=== PATIENT | female | born 1975 | race Caucasian/White ===

== ENCOUNTER 2020-03-13 10:54 | Outpatient (RCR) | payer OTHER, SELFPAY ==
[2020-03-13 11:01] VITALS: BMI 48.2
== END 2020-06-04 08:06 | disposition home or self-care (01) ==
LOC: ANHDMC 10:54
PROVIDERS: PCP Internal Medicine; Visit Provider Internal Medicine
DX: E11.9 Type 2 diabetes mellitus without complications (principal); R63.5 Abnormal weight gain; G47.33 Obstructive sleep apnea (adult) (pediatric); Z71.3 Dietary counseling and surveillance
CPT/HCPCS: 97802

== ENCOUNTER 2021-02-26 13:10 | Outpatient (CLI) | payer OTHER, SELFPAY ==
--- NOTE | ~2021-02-26 | XR_ITS ---
EXAMINATION: XR knee LT min 4V DATE: 02/26/2021 14:07 INDICATION: Left knee pain TECHNIQUE: Four views of the left knee were obtained. COMPARISON: None. FINDINGS: Alignment is normal. No fracture or osteochondral lesion. There is tricompartmental osteoar thritis, mild in the medial and lateral compartments and moderate in the patellofemoral compartment. No joint effusion/synovitis. Soft tissues are unremarkable. IMPRESSION: 1. Tricompartmental osteoarthritis without acute osseous abnormality. Reviewed, dictated and finalized at location A.
--- NOTE | ~2021-02-26 | CT_ITS ---
EXAMINATION: CTA chest PE protocol DATE: 02/26/2021 13:58 INDICATION: Dyspnea TECHNIQUE: Computed tomography (CT) pulmonary angiogram of the chest was performed with 100 mL Omnipa que-350 intravenous contrast. Additional 3D reconstructions utilizing coronal maximum intensity proje ction (MIP) were performed. Automated exposure control and iterative reconstruction technique were em ployed. The dose-length product was 1038.72 mGy-cm. COMPARISON: None FINDINGS: Adequate but suboptimal contrast opacification of the pulmonary arteries. There is mild streak artifa ct from dense contrast in the superior vena cava and right atrium. Minimal scattered respiratory nino on artifact which does not significantly limit evaluation. No pulmonary embolism. Calcified nodule in the perihilar right lower lobe consistent with old granulomatous disease. 3 mm triangular nodule wan ng the left and right major fissures most likely representing intrafissural lymph nodes. Indeterminat e 4 mm nodule superior segment of the left lower lobe. Lungs are otherwise clear with no pneumonia, p ulmonary edema or pleural effusion. Heart size is normal. No pericardial effusion. Thoracic aorta is normal in caliber with no dissection. No pathologically enlarged thoracic lymphadenopathy. Mild thora cic spondylosis. Incidentally noted are couple additional accessory right renal arteries. Visualized upper abdomen is otherwise unremarkable. IMPRESSION: 1. No pulmonary embolism or other acute cardiopulmonary disease. 2. Indeterminate 4 mm left lower lobe nodule most likely sequela of old granulomatous disease. If the patient is low risk for lung cancer, no follow-up is needed. If the patient is high risk (i.e., hist ory of smoking or asbestos or significant radiation exposure), optional follow-up chest CT could be c onsidered at 12 months. Reviewed, dictated and finalized at location A. IMPRESSION: 1. No pulmonary embolism or other acute cardiopulmonary disease. 2. Indeterminate 4 mm left lower lobe nodule most likely sequela of old granulo matous disease. If the patient is low risk for lung cancer, no follow-up is nee ded. If the patient is high risk (i.e., history of smoking or asbestos or signi ficant radiation exposure), optional follow-up chest CT could be considered at 12 months.
--- NOTE | ~2021-02-26 | XR_ITS ---
EXAMINATION: XR knee RT min 4V DATE: 02/26/2021 14:07 INDICATION: Right knee pain TECHNIQUE: Four views of the right knee were obtained. COMPARISON: None. FINDINGS: Alignment is normal. No fracture or osteochondral lesion. There is tricompartmental osteoar thritis, mild in the lateral compartment and moderate in the medial and patellofemoral compartments. No joint effusion/synovitis. Soft tissues are unremarkable. IMPRESSION: 1. Tricompartmental osteoarthritis without acute osseous abnormality. Reviewed, dictated and finalized at location A.
[2021-02-26 13:47] LABS: Estimated Glomerular Filt Rate > 60
== END 2021-02-26 13:11 | disposition home or self-care (01) ==
PROVIDERS: PCP Internal Medicine; Visit Provider Physician Assistant
DX: R06.00 Dyspnea, unspecified (principal); M17.0 Bilateral primary osteoarthritis of knee; R91.1 Solitary pulmonary nodule
CPT/HCPCS: 71275; 73564; Q9967

== ENCOUNTER 2022-05-05 14:00 | Outpatient (CLI) | payer OTHER, SELFPAY ==
[2022-05-05 15:05] LABS: Anion Gap 9 mmol/L (8-16); Blood Urea Nitrogen 15 mg/dL (7-17); Calcium 8.9 mg/dL (8.4-10.2); Carbon Dioxide 27 mmol/L (22-30); Chloride 105 mmol/L (98-107); Estimated Glomerular Filt Rate > 60; Glucose 108 mg/dL (65-110); Sodium 141 mmol/L (137-145)
== END 2022-05-05 14:01 | disposition home or self-care (01) ==
LOC: ANHSURGERY 14:04
PROVIDERS: Anesthesiology; PCP Physician Assistant; Visit Provider Urology
DX: N93.9 Abnormal uterine and vaginal bleeding, unspecified (principal); E11.9 Type 2 diabetes mellitus without complications
CPT/HCPCS: 36415; 80048; 87086

== ENCOUNTER 2022-05-09 00:35 | Day surgery (SDC) | payer OTHER, SELFPAY ==
[2022-05-02 09:16] VITALS: BMI 49.1
--- NOTE | 2022-05-02 09:32 | PC.NURSE ---
Report to the Outpatient Waiting Room, entrance under the green pavilion located off [facility], at time 6:00 on date 05/09/22. OR Time: 7:30. Time changes happen often and if your time is changed the preop area will call you the afternoon before. - You and your visitor will be asked to self-screen and do not enter if you have any COVID symptoms. - Only one visitor and NO children visitors are allowed at this time. - The patient visitor is requested to leave or wait in car when not with patient due to restrictions. - A mask is required within the hospital. Patients may have clear liquids (water, carbonated beverages, clear teas, apple juice) until 3 hours prior to surgery (4:30) with a maximum of 20 ounces. - No food from midnight until time of surgery Take the following medications with a SIP of water the morning of surgery: BUPROPION, DULOXETINE Medications to discontinue per physician: VITAMINS/SUPPLEMENTS Date to take last dose: 05/05/22 Please no make-up, nail portuguese, hairspray, perfume, deodorant, or body powder the day of surgery. No jewelry (including any body piercings) or valuables the day of surgery, leave them at home. Please take a shower or bath the night before, or the morning of, surgery with an antibacterial soap. Wear comfortable, loose fitting clothing. - Jewelry must be removed prior to entering the operating room. Rings and piercings that are not removed may be cut off. - The hospital will not accept responsibility for valuables. - Please leave all valuables, including medications, at home the day of surgery. If you are going home after surgery, a licensed bulk truck driver must drive you home. - NO public transportation without another adult. - We recommend that an adult stay with you for 24 hours following discharge. - We also recommend that you do not drive, make important decision, drink alcoholic beverages, or take any drugs that were not prescribed by your health care provider for at least 24 hours after your discharge time. Follow any additional instructions given to you from your surgeon. If you or anyone in your household have experienced Covid symptoms in the past week, please notify your surgeon or the nurse liaison at the phone number below for possible testing. Telephone instructions given to PT - MACARENA PAL and asked if any additional questions and then verbalized understanding. Patient advised to call surgeon office or pre surgery nurse liaison [phone] if any additional questions.
--- NOTE | 2022-05-04 08:47 | PM.IMHP ---
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 Lichen sclerosus (12/05/15) vulvar bx Right knee DJD Screening mammogram, encounter for Varicosities of leg (~1994) Surgical History Surgical History H/O LEEP (~1996) cervical dysplasia KELLI I/HPV History of cholecystectomy (09/12/11) History of colonoscopy with polypectomy (01/04/18) History of colposcopy with cervical biopsy (~1996) cervical dysplasia KELLI I History of dilation and curettage (01/18/09) dx lscope/hscope d&c--adhesiolysis, secretory pattern, mid to late phase endometrium History of endometrial ablation (12/20/09) Novasure ablation History of foot surgery 07/31/18 left foot fascia release 05/2016 plantar fasciitis release History of hemorrhoidectomy (03/12/11) History of laparoscopy (01/18/09) dx lscope/hscope d&c--adhesiolysis, secretory pattern, mid to late phase endometrium History of uvulopalatopharyngoplasty (03/06/15) Family History Family History Father Hypertension Diabetes mellitus Mother Asthma Family history of chronic obstructive pulmonary disease Family history of rheumatoid arthritis Hypertension Osteoporosis Sibling Family history of heart disease in male family member before age 55 Family history of chronic obstructive pulmonary disease Heart disease sister Hypertension sister Grandparent Cerebrovascular accident paternal grandmother Other Family history of cardiovascular disease History of arthritis Social History Social History Smoking packs per day: 0.5 Smoking cigarettes per day: 10.0 Years smoked: 10 Smoking pack-years: 5.00 Smoking status: Former smoker Tobacco type: cigarettes Second hand tobacco smoke exposure: No Smoking end date: 08/03/07 Alcohol intake: current Drinks per week: 2 Substance use: current Substance use type: marijuana Other substance usage details: every few weeks Additional living arrangements comments: Additional occupation/education comments: claims rep Gender identity (if verbalized by the patient): Female Sexual Orientation (if Verbalized by the Patient): Straight or Heterosexual Spiritual care concerns: No Meds Home Medications and Allergies Home Medications Medication Instructions Recorded Confirmed Type atorvastatin 20 mg tablet 20 mg PO DAILY 04/19/21 05/02/22 History azelastine 137 mcg (0.1 %) nasal 137 mcg intranasal Q12H 04/19/21 05/02/22 History spray aerosol bupropion HCl 300 mg 24 hr tablet, 300 mg PO QAM 04/19/21 05/02/22 History extended release (Wellbutrin XL) duloxetine 30 mg capsule,delayed 30 mg PO DAILY 04/19/21 05/02/22 History release (Cymbalta) fluticasone propionate 50 1 spray intranasal DAILY 04/19/21 05/02/22 History mcg/actuation nasal spray,suspension (Flonase Allergy Relief) ibuprofen 800 mg tablet 800 mg PO Q6H PRN Pain 04/19/21 05/02/22 History montelukast 10 mg tablet 10 mg PO DAILY 04/19/21 05/02/22 History (Singulair) omega-3 fatty acids-fish oil 360 1 cap PO DAILY 05/02/22 05/02/22 History mg-1,200 mg capsule (Fish Oil) tirzepatide 2.5 mg/0.5 mL 2.5 mg subcut WEEKLY 05/02/22 05/02/22 History subcutaneous pen injector (Mounjaro) Allergies Allergy/AdvReac
--- NOTE | 2022-05-08 16:55 | WPDANESEPPF ---
Anes - Initial Pre Proc Eval Procedure: Operation Date: 05/09/22 07:30 Proposed Procedures p Urethral Sling, - Robbie Cisneros MD s Cystoscopy, with Bulking Agent - Robbie Cisneros MD Date/Time: 05/08/22 16:55 Surgeon: Robbie Cisneros MD Pre Op Diagnosis: stress incontinence Patient Data Age: 46 Gender: F Height: 1.55 m Weight: 117.93 kg Allergies Allergy/AdvReac Type Severity Reaction Status Date / Time cefprozil Allergy Unknown Anaphylaxis Verified 05/02/22 09:13 cefuroxime Allergy Unknown Anaphylaxis Verified 05/02/22 09:13 cephalexin Allergy Unknown Anaphylaxis Verified 05/02/22 09:13 Cephalosporins Allergy Unknown Anaphylaxis Verified 05/02/22 09:13 erythromycin base Allergy Unknown Anaphylaxis Verified 05/02/22 09:13 Home Medications Medication Instructions Recorded Confirmed Type atorvastatin 20 mg tablet 20 mg PO DAILY 04/19/21 05/02/22 History azelastine 137 mcg (0.1 %) nasal 137 mcg intranasal Q12H 04/19/21 05/02/22 History spray aerosol bupropion HCl 300 mg 24 hr tablet, 300 mg PO QAM 04/19/21 05/02/22 History extended release (Wellbutrin XL) duloxetine 30 mg capsule,delayed 30 mg PO DAILY 04/19/21 05/02/22 History release (Cymbalta) fluticasone propionate 50 1 spray intranasal DAILY 04/19/21 05/02/22 History mcg/actuation nasal spray,suspension (Flonase Allergy Relief) ibuprofen 800 mg tablet 800 mg PO Q6H PRN Pain 04/19/21 05/02/22 History montelukast 10 mg tablet 10 mg PO DAILY 04/19/21 05/02/22 History (Singulair) omega-3 fatty acids-fish oil 360 1 cap PO DAILY 05/02/22 05/02/22 History mg-1,200 mg capsule (Fish Oil) tirzepatide 2.5 mg/0.5 mL 2.5 mg subcut WEEKLY 05/02/22 05/02/22 History subcutaneous pen injector (Mounjaro) Patient hx anesthesia problems: none Family hx anesthesia problems: none Results Review: All pre-operative results and documents have been reviewed as part of the pre-operative evaluation. 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 Lichen sclerosus (12/05/15) vulvar bx Right knee DJD Screening mammogram, encounter for Sleep apnea CPAP Varicosities of leg (~1994) Surgical History Surgical History H/O LEEP (~1996) cervical dysplasia KELLI I/HPV History of cholecystectomy (09/12/11) History of colonoscopy with polypectomy (01/04/18) History of colposcopy with cervical biopsy (~1996) cervical dysplasia KELLI I History of dilation and curettage (01/18/09) dx lscope/hscope d&c--adhesiolysis, secretory pattern, mid to late phase endometrium History of endometrial ablation (12/20/09) Novasure ablation History of foot surgery 07/31/18 left foot fascia release 05/2016 plantar fasciitis release History of hemorrhoidectomy (03/12/11) History of laparoscopy (01/18/09) dx lscope/hscope d&c--adhesiolysis, secretory pattern, mid to late phase endometrium History of uvulopalatopharyngoplasty (03/06/15) Family History Family History Father Hypertension Diabetes mellitus Mother Asthma Family history of chronic obstructive pulmonary disease Family history of rheumatoid arthritis Hypertension Osteoporosis Sibling Family history of heart disease in male family member before age 55 Family history of chronic obstructive pulmonary disease Heart disease sister Hypertension sister Grandparent Cerebrovascular accident paternal grandmother Other Family history of cardiovascular disease History of arthritis Social History Social History (Reviewed 05/04/22 @ 08:48 by Robbie Gamez
[2022-05-09] VITALS (7 sets, daily range): BP systolic 109–127; BP diastolic 49–69; PULSE 75–105; RESP 12–20; TEMP 36.1–36.3; O2SAT 98–100
[2022-05-09] MEDS: LACTATED RINGERS 1,000 ML 30 ML IV CONT (07:00)
[2022-05-09 07:02] LABS: Glucose Point of Care 102 mg/dl (65-105)
--- NOTE | 2022-05-09 07:10 | WPDHPUPDATE1 ---
History and Physical Update Update Date/Time: 05/09/22 07:10 History and Physical has been reviewed, including an updated exam of the patient. There are NO changes in the patient's condition. Risks, benefits, and alternatives have been discussed and questions answered. Patient agrees to proceed with procedure.
[2022-05-09] MEDS: levoFLOXacin 500 MG/D5W 100 ML 500 MG/100 ML BAG 100 MG IVPB (07:26)
[2022-05-09] MEDS: LIDOCAINE HCL 2% GEL UROJET 10 ML PKG MUCOUS MEM (07:50)
[2022-05-09] MEDS: BUPIVACAINE/EPINEPHRINE 0.25% 50 ML VIAL INFILTRATE (07:59)
--- NOTE | 2022-05-09 08:08 | P.OP_ITS ---
Procedure Note - Detailed Date of Procedure 05/09/22 Pre-op Diagnosis stress incontinence Post-op Diagnosis Same Procedure Performed mid urethral sling cystoscopy Surgeon Robbie Cisneros MD Anesthesia General Indications This is a female with confirm stress urinary incontinence. She desires surgical correction. She understands the risks of bleeding, infection, injury to the urinary tract, vaginal mesh extrusion, urinary tract mesh erosion, obstructive voiding requiring a secondary procedure, hip and leg pain, dyspareunia, inability to improve overactive bladder symptoms. Her BMI is over 50. We discussed a sling as well as a bulking agent. She understands the sling would be my preferred if it is able to be done with her body habitus. If unable to be done would have to revert to a bulking agent. She understands a bulking agent has a lower success rate than urethral sling. She agrees to proceed. Description of Procedure She was correctly identified. Informed consent obtained. She was brought the operating room. She was given appropriate anesthesia. She was given appropriate perioperative antibiotics. A time-out performed. I felt I would be able to do a urethral sling. This soon I preferred procedure due to its longer- term efficacy. I marked out the site of the inner thigh incisions. I anesthetized the skin and made those incisions. I anesthetized the anterior vaginal wall over the mid urethra. I made a 1 cm incision. I dissected out laterally taking great care not to injure the refilled vaginal wall. I passed the helical trocars. First on the left. Then on the right. I did this from the thigh incision towards the vaginal incision. The sling was connected to the trocars and brought out through the thigh incision. I tensioned the sling appropriately. I cut and the plastic sheaths. I then closed the incision with 2 0 Vicryl. On cystoscopy there is no tumors or surgical artifact. There was no surgical artifact in the urethra. I cut the excess sling material. Close incisions with glue. She was awakened and transferred to the PACU in stable condition. Implants Urethral sling Estimated Blood Loss 50 Drains No Packing No Pathology None sent Complications No immediate complications Condition Stable Disposition PACU
[2022-05-09 08:22] LABS: Glucose Point of Care 90 mg/dl (65-105)
[2022-05-09] MEDS: fentaNYL CITRATE INJ (*CRX) 100 MCG/2 ML VIAL 25 MCG IV PUSH ×2 (08:30→08:39)
[2022-05-09] MEDS: oxyCODONE HCL (*CRX) 5 MG TAB IR PO (09:06)
== END 2022-05-09 09:50 | disposition home or self-care (01) ==
PROVIDERS: PCP Physician Assistant; Visit Provider Urology
PROC: (CPT 51992; principal; 2022-05-09 07:30)
DX: N39.3 Stress incontinence (female) (male) (principal); N36.42 Intrinsic sphincter deficiency (ISD); E66.9 Obesity, unspecified; Z68.42 Body mass index [BMI] 45.0-49.9, adult; E11.9 Type 2 diabetes mellitus without complications; Z87.891 Personal history of nicotine dependence
CPT/HCPCS: 51992; 82948; A9270; C1771; J1100; J1885; J1956; J2250; J2405; J2704; J3010; J7030; J7120

== ENCOUNTER 2024-02-22 07:54 | Outpatient (CLI) | payer OTHER, SELFPAY ==
--- NOTE | ~2024-02-22 | MM_ITS ---
EXAMINATION: MM diagnostic tacos BI w forrest HISTORY: Follow-up left breast asymmetry TECHNIQUE: Additional 3-D tomosynthesis images of the breasts were performed and synthetic 2-D images were generated. CAD analysis was submitted and interpreted. COMPARISON: 10/05/2012 BREAST PARENCHYMAL COMPOSITION: Not dense: There are scattered areas of fibroglandular density. FINDINGS: The breasts are unremarkable without evidence for suspicious mass is, calcifications or arc hitectural distortion. IMPRESSION: 1. No mammographic evidence for malignancy in either breast. 2. Routine yearly screening mammogram and regular clinical breast examination are recommended. BI-RADS Category 1: Negative Reviewed, dictated and finalized at location B. IMPRESSION: 1. No mammographic evidence for malignancy in either breast. 2. Routine yearly screening mammogram and regular clinical breast examination a re recommended. BI-RADS Category 1: Negative
== END 2024-02-22 07:55 ==
PROVIDERS: PCP Physician Assistant; Visit Provider Obstetrics & Gynecology
DX: R92.8 Other abnormal and inconclusive findings on diagnostic imaging of breast (principal)
CPT/HCPCS: 77062; 77066; G0279

== ENCOUNTER 2024-07-26 00:14 | Day surgery (SDC) | payer OTHER, SELFPAY ==
[2024-07-14 13:45] VITALS: BMI 43.4
--- NOTE | 2024-07-26 08:26 | P.PNAN_ITS ---
Anes - Initial Pre Proc Eval Procedure: Operation Date: 07/26/24 13:30 Proposed Procedures p Esophagogastroduodenoscopy - Jonathan Toure MD Date/Time: 07/26/24 08:26 Surgeon: Jonathan Toure MD Pre Op Diagnosis: GERD Patient Data Age: 48 Gender: F Height: 1.55 m Weight: 104.4 kg Allergies Allergy/AdvReac Type Severity Reaction Status Date / Time cefprozil Allergy Unknown Anaphylaxis Verified 07/26/24 11:58 cefuroxime Allergy Unknown Anaphylaxis Verified 07/26/24 11:58 cephalexin Allergy Unknown Anaphylaxis Verified 07/26/24 11:58 Cephalosporins Allergy Unknown Anaphylaxis Verified 07/26/24 11:58 erythromycin base Allergy Unknown Anaphylaxis Verified 07/26/24 11:58 Home Medications ?Medication ?Instructions ?Recorded ?Confirmed ?Type atorvastatin 20 mg tablet 20 mg PO DAILY 04/19/21 07/14/24 History azelastine 137 mcg (0.1 %) nasal 137 mcg intranasal Q12H 04/19/21 07/14/24 History spray bupropion HCl 300 mg 24 hr tablet, 300 mg PO QAM 04/19/21 07/14/24 History extended release (Wellbutrin XL) duloxetine 30 mg capsule,delayed 30 mg PO DAILY 04/19/21 07/14/24 History release (Cymbalta) fluticasone propionate 50 1 spray intranasal DAILY 04/19/21 07/14/24 History mcg/actuation nasal spray,suspension (Flonase Allergy Relief) ibuprofen 800 mg tablet 800 mg PO Q6H PRN Pain 04/19/21 07/14/24 History montelukast 10 mg tablet 10 mg PO DAILY 04/19/21 07/14/24 History (Singulair) omega-3 fatty acids-fish oil 360 1 cap PO DAILY 05/02/22 07/14/24 History mg-1,200 mg capsule (Fish Oil) omeprazole 20 mg capsule,delayed 20 mg PO DAILY 12/26/22 07/14/24 History release cyanocobalamin (vitamin B-12) 1,000 mcg PO DAILY 12/29/23 07/14/24 History 1,000 mcg capsule estradiol 1 mg tablet 0.5 mg (1/2 x 1 mg) PO DAILY #90 12/29/23 07/14/24 Rx tabs progesterone micronized 200 mg 200 mg PO QHS 90 days #90 caps 12/29/23 07/14/24 Rx capsule (Prometrium) estradiol-norethindrone acet 1 1 tablet PO DAILY #84 tabs 03/30/24 07/14/24 Rx mg-0.5 mg tablet (Activella) duloxetine 60 mg capsule,delayed 60 mg PO DAILY 07/14/24 07/14/24 History release lamotrigine 25 mg tablet (Lamictal) 25 mg PO DAILY 07/14/24 07/14/24 History Patient hx anesthesia problems: none Family hx anesthesia problems: none Results Review: All pre-operative results and documents have been reviewed as part of the pre- operative evaluation. 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 Lichen sclerosus (12/05/15) vulvar bx Right knee DJD Screening mammogram, encounter for Sleep apnea CPAP Varicosities of leg (~1994) Surgical History Surgical History H/O LEEP (~1996) cervical dysplasia KELLI I/HPV History of cholecystectomy (09/12/11) History of colonoscopy with polypectomy (01/04/18) History of colposcopy with cervical biopsy (~1996) cervical dysplasia KELLI I History of dilation and curettage (01/18/09) dx lscope/hscope d&c--adhesiolysis, secretory pattern, mid to late phase endometrium History of endometrial ablation (12/20/09) Novasure ablation History of foot surgery 07/31/18 left foot fascia release 05/2016 plantar fasciitis release History of hemorrhoidectomy (03/12/11) History of laparoscopy (01/18/09) dx lscope/hscope d&c--adhesiolysis, secretory pattern, mid to late phase endometrium History of uvulopalatopharyngoplasty (03/06/15) Family History Family History Father Hypertension Diabetes mellitus Mother Asthma Family history of chronic obstructive pulmonary disease Family history of rheumatoid arthritis Hypertension Osteoporosis CHF (congestive heart failure) Sibling Family history of heart disease in male family member before age 55 Family history of chronic obstructive pulmonary disease Heart disease sister Hypertension sister Grandparent Cerebrovascular accident paternal grandmother Other Family history of cardiovascular disease History of arthritis Social History Social History (Updated 12/29/23 @ 17:08 by PRO Hernandez) Smoking packs per day: 0.5 Smoking cigarettes per day: 10.0 Years smoked: 10 Smoking pack-years: 5.00 Smoking status: Former smoker Tobacco type: cigarettes Second hand tobacco smoke exposure: No Smoking end date: 08/03/07 Alcohol intake: current Drinks per week: 2 Substance use: current Substance use type: marijuana Other substance usage details: MJ daily Do You Feel Safe in your Home?: Yes Lack of Transportation: No Lack of Food: Never True Current Housing: I Have Housing Concerned About Future Housing: No Difficulty Paying Gas/Electric Bills: No Difficulty Paying for Meds: No Currently Unemployed: No Education: High School Diploma/GED Difficulty w/ Childcare or Family Care: No Living arrangements: with family Additional living arrangements comments: Occupation/Education: occupation 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 Gender identity (if verbalized by the patient): Female Sexual Orientation (if Verbalized by the Patient): Straight or Heterosexual Spiritual care concerns: No Anes - Eval Final PreProcedure Day of Procedure 07/26/24 08:26 Patient weight: morbidly obese Heart: regular rate and rhythm Lungs: clear to auscultation Airway: Mallampati scale class II Neurological: alert and oriented Last oral intake: >/= 8 hours ASA classification: III Emergent: no Anesthetic plan: proceed Anesthesia type and monitoring: general GIVS and standard monitoring Results Review: All pre-operative results and documents have been reviewed as part of the pre-operative evaluation. Informed Consent: The patient's anesthetic plan and its attendant risks and benefits were discussed with the patient/family/POA. Questions were solicited and answers provided to the satisfaction of the patient/family/POA.
[2024-07-26 11:59] VITALS: BP 129/75; PULSE 73; RESP 18; TEMP 35.9; O2SAT 100; BMI 43.7
[2024-07-26] MEDS: LACTATED RINGERS 1,000 ML 150 ML IV CONT (12:17)
--- NOTE | 2024-07-26 12:17 | P.HP_ITS ---
History of Present Illness History of Present Illness Consent: Risks, benefits, and alternatives have been discussed and questions answered. Patient agrees to proceed with procedure. 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) Abnormal Pap smear of cervix (~1996) 1996 Lgsil + hpv Chondromalacia Left knee DJD Anxiety Depression Sleep apnea CPAP Right knee DJD Surgical History Surgical History H/O LEEP (~1996) cervical dysplasia KELLI I/HPV History of colposcopy with cervical biopsy (~1996) cervical dysplasia KELLI I History of endometrial ablation (12/20/09) Novasure ablation History of laparoscopy (01/18/09) dx lscope/hscope d&c--adhesiolysis, secretory pattern, mid to late phase endometrium History of dilation and curettage (01/18/09) dx lscope/hscope d&c--adhesiolysis, secretory pattern, mid to late phase endometrium History of foot surgery 07/31/18 left foot fascia release 05/2016 plantar fasciitis release History of uvulopalatopharyngoplasty (03/06/15) History of cholecystectomy (09/12/11) History of hemorrhoidectomy (03/12/11) History of colonoscopy with polypectomy (01/04/18) Family History Family History Father Hypertension Diabetes mellitus Mother Asthma Family history of chronic obstructive pulmonary disease Family history of rheumatoid arthritis Hypertension Osteoporosis CHF (congestive heart failure) Sibling Family history of heart disease in male family member before age 55 Family history of chronic obstructive pulmonary disease Heart disease sister Hypertension sister Grandparent Cerebrovascular accident paternal grandmother Other Family history of cardiovascular disease History of arthritis Social History Social History (Updated 12/29/23 @ 17:08 by Nataliya Thornton [facility]) Smoking packs per day: 0.5 Smoking cigarettes per day: 10.0 Years smoked: 10 Smoking pack-years: 5.00 Smoking status: Former smoker Tobacco type: cigarettes Second hand tobacco smoke exposure: No Smoking end date: 08/03/07 Alcohol intake: current Drinks per week: 2 Substance use: current Substance use type: marijuana Other substance usage details: MJ daily Do You Feel Safe in your Home?: Yes Lack of Transportation: No Lack of Food: Never True Current Housing: I Have Housing Concerned About Future Housing: No Difficulty Paying Gas/Electric Bills: No Difficulty Paying for Meds: No Currently Unemployed: No Education: High School Diploma/GED Difficulty w/ Childcare or Family Care: No Living arrangements: with family Additional living arrangements comments: Occupation/Education: 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 Gender identity (if verbalized by the patient): Female Sexual Orientation (if Verbalized by the Patient): Straight or Heterosexual Spiritual care concerns: No Meds Home Medications and Allergies Home Medications ?Medication ?Instructions ?Recorded ?Confirmed ?Type atorvastatin 20 mg tablet 20 mg PO DAILY 04/19/21 07/14/24 History azelastine 137 mcg (0.1 %) nasal 137 mcg intranasal Q12H 04/19/21 07/14/24 History spray bupropion HCl 300 mg 24 hr tablet, 300 mg PO QAM 04/19/21 07/14/24 History extended release (Wellbutrin XL) duloxetine 30 mg capsule,delayed 30 mg PO DAILY 04/19/21 07/14/24 History release (Cymbalta) fluticasone propionate 50 1 spray intranasal DAILY 04/19/21 07/14/24 History mcg/actuation nasal spray,suspension (Flonase Allergy Relief) ibuprofen 800 mg tablet 800 mg PO Q6H PRN Pain 04/19/21 07/14/24 History montelukast 10 mg tablet 10 mg PO DAILY 04/19/21 07/14/24 History (Singulair) omega-3 fatty acids-fish oil 360 1 cap PO DAILY 05/02/22 07/14/24 History mg-1,200 mg capsule (Fish Oil) omeprazole 20 mg capsule,delayed 20 mg PO DAILY 12/26/22 07/14/24 History release cyanocobalamin (vitamin B-12) 1,000 mcg PO DAILY 12/29/23 07/14/24 History 1,000 mcg capsule estradiol 1 mg tablet 0.5 mg (1/2 x 1 mg) PO DAILY #90 12/29/23 07/14/24 Rx tabs progesterone micronized 200 mg 200 mg PO QHS 90 days #90 caps 12/29/23 07/14/24 Rx capsule (Prometrium) estradiol-norethindrone acet 1 1 tablet PO DAILY #84 tabs 03/30/24 07/14/24 Rx mg-0.5 mg tablet (Activella) duloxetine 60 mg capsule,delayed 60 mg PO DAILY 07/14/24 07/14/24 History release lamotrigine 25 mg tablet (Lamictal) 25 mg PO DAILY 07/14/24 07/14/24 History Allergies Allergy/AdvReac Type Severity Reaction Status Date / Time cefprozil Allergy Unknown Anaphylaxis Verified 07/26/24 11:58 cefuroxime Allergy Unknown Anaphylaxis Verified 07/26/24 11:58 cephalexin Allergy Unknown Anaphylaxis Verified 07/26/24 11:58 Cephalosporins Allergy Unknown Anaphylaxis Verified 07/26/24 11:58 erythromycin base Allergy Unknown Anaphylaxis Verified 07/26/24 11:58 Vital Signs Vital Signs - 24 hr 07/26/24 11:59 Temperature 96.7 F L Pulse Rate 73 Respiratory Rate 18 Blood Pressure 129/75 Pulse Oximetry 100 Oxygen Delivery Room Air Exam Const: General: comfortable, no acute distress and obese HENMT: Face/Nose/Sinus: Normal nares present Eyes: General: appearance normal, both eyes and all related structures Neck: Neck: no JVD Resp: Auscultation: clear to auscultation bilaterally Cardio: Rate: regular rate Rhythm: regular rhythm GI: Inspection: non-distended GI Palp: Yes Soft to palpation Skin: General skin exam: normal color Neuro: General: gait normal Speech: normal speech Extrem: General: normal to inspection Psych: Mental Status: mental status grossly normal Assessment and Plan Assessment and plan (1) GERD (gastroesophageal reflux disease): Code(s): K21.9 - Gastro-esophageal reflux disease without esophagitis Status: Acute Assessment and Plan: egd with bx on ppi (2) Obese: Code(s): E66.9 - Obesity, unspecified Status: Acute
[2024-07-26 12:28] VITALS: BP 117/60; PULSE 71; RESP 22; O2SAT 95
[2024-07-26 12:38] VITALS: BP 119/97; PULSE 83; RESP 20; O2SAT 98
[2024-07-26 12:48] VITALS: BP 108/65; PULSE 87; RESP 22; O2SAT 99
--- OUTSIDE RECORDS SUMMARY | 2024-08-02 01:28 | XMS_ITS | Data Portability ---
Author Organization [facility] [employer], Main Office Address [address] [place] [address] Assessment No assessment recorded. Plan of Treatment Reminders Order Date Submit Date Provider Last Modified By Organization Details Last Modified Time Details Appointments None recorded. Lab HbA1c (hemoglobin A1c), blood 2022 023 [employer] [facility], [address], [place], [address], 3 16:13:51 microalbumi n/creatinin e, mass ratio, urine 2022 023 [employer] [facility], [address], [place], [address], 3 16:13:46 CMP, serum or plasma 2022 023 [employer] [facility], [address], [place], [address], 3 16:13:49 CBC w/ auto diff 2022 023 [employer] [facility], [address], [place], [address], 3 16:13:52 TSH + free T4, serum 2022 023 [employer] [facility], [address], [place], [address], 3 16:13:47 vitamin B12 + folate, serum or blood 2022 023 [place] [employer] [facility], [address], [place], [address], 3 16:13:53 lipid panel, serum 2022 023 [place] [employer] [facility], [address], [place], [address], 3 16:13:48 Referral None recorded. Procedures None recorded. Surgeries None recorded. Imaging None recorded. Medication Orders Colace 100 mg capsule 2022 023 [facility][id number], [address] [place], [address], 3 17:09:08 Mounjaro 7.5 mg/0.5 mL subcutaneou s pen injector 2022 023 [facility] #3259, [address] [place], [address], 3 17:12:40 mupirocin 2 % topical [facility]ment 2022 023 [email or web address] [address] [place], [address], 3 16:56:26 Vyvanse 30 mg capsule 2022 023 [email or web address] #3259, [address] [place], [address], 3 16:26:59 Mounjaro 7.5 mg/0.5 mL subcutaneou s pen injector 2022 023 [facility], [address], [place], [id number], 3 16:59:19 triamcinolo ne acetonide 0.1 % topical ointment 2022 023 [facility], [address], [place], [id number], 3 16:59:19 bupropion HCl XL 300 mg 24 hr tablet, extended release 2022 023 [facility], [address] [place] [address], [address], [id number], 3 16:59:14 Focalin XR 15 mg capsule,ext ended release 2022 023 [email or web address]82843, [address], [place], [id number], 4 10:50:39 Patient TargetsNo targets recorded. Patient InstructionsNo instructions recorded. Reason for Referral None Reported. Results Created Date Observation Date Name Description Value Unit Range Abnormal Flag Note LastModifiedBy Organization Detail LastModifiedTime 04/03/2004/04/2022 REFLE XIVE URINE CULTU RE reflexive urine culture NO CULTU RE INDIC ATED Not Available [address] [address] [place], [address], 04/04/2022 14:28:25 04/03/2004/04/2022 URINA LYSIS , COMPL ETE W/REF EVE TO CULTU RE color yellow yellow normal Not Available [facility] [address] [address] [place], [address], 04/04/2022 14:28:24 04/03/20 22 04/04/2022 URINA LYSIS , COMPL ETE W/REF EVE TO CULTU RE appearance clear clear normal Not Available [address] [address] [place], [address], 04/04/2022 14:28:24 04/03/20 22 04/04/2022 URINA LYSIS , COMPL ETE W/REF EVE TO CULTU RE specific gravity 1.016 1.001- 1.035 normal Not Available [address], [address], 04/04/2022 14:28:24 04/03/20 22 04/04/2022 URINA LYSIS , COMPL ETE W/REF EVE TO CULTU RE pH 6.0 5.0-8. 0 normal Not Available [address], [address], 04/04/2022 14:28:24 04/03/20 22 04/04/2022 URINA LYSIS , COMPL ETE W/REF EVE TO CULTU RE glucose negati ve negati ve normal Not Available [address], [address], 04/04/2022 14:28:24 04/03/20 22 04/04/2022 URINA LYSIS , COMPL ETE W/REF EVE TO CULTU RE bilirubin negati ve negati ve normal Not Available [address], [address], 04/04/2022 14:28:24 04/03/20 22 04/04/2022 URINA LYSIS , COMPL ETE W/REF EVE TO CULTU RE ketones negati ve negati ve normal Not Available [address], [address], 04/04/2022 14:28:24 04/03/20 22 04/04/2022 URINA LYSIS , COMPL ETE W/REF EVE TO CULTU RE occult blood negati ve negati ve normal Not Available [address], [address], 04/04/2022 14:28:24 04/03/20 22 04/04/2022 URINA LYSIS , COMPL ETE W/REF EVE TO CULTU RE protein negati ve negati ve normal Not Available [address] [address] [place], [address], 04/04/2022 14:28:24 04/03/20 22 04/04/2022 URINA LYSIS , COMPL ETE W/REF EVE TO CULTU RE nitrite negati ve negati ve normal Not Available [address], [address], 04/04/2022 14:28:24 04/03/20 22 04/04/2022 URINA LYSIS , COMPL ETE W/REF EVE TO CULTU RE leukocyte esterase negati ve negati ve normal Not Available [address], [address], 04/04/2022 14:28:24 04/03/20 22 04/04/2022 URINA LYSIS , COMPL ETE W/REF EVE TO CULTU RE WBC none seen /hpf < or = 5 normal Not Available [address], [address], 04/04/2022 14:28:24 04/03/20 22 04/04/2022 URINA LYSIS , COMPL ETE W/REF EVE TO CULTU RE RBC none seen /hpf < or = 2 normal Not Available [address], [address], 04/04/2022 14:28:24 04/03/20 22 04/04/2022 URINA LYSIS , COMPL ETE W/REF EVE TO CULTU RE squamous epithelial cells 0-5 /hpf < or = 5 Not Available [address], [address], 04/04/2022 14:28:24 04/03/20 22 04/04/2022 URINA LYSIS , COMPL ETE W/REF EVE TO CULTU RE bacteria none seen /hpf none seen normal Not Available [address], [address], 04/04/2022 14:28:24 04/03/20 22 04/04/2022 URINA LYSIS , COMPL ETE W/REF EVE TO CULTU RE hyaline cast none seen /lpf none seen normal Not Available [facility] [address] [address] [place], [address], 04/04/2022 14:28:24 04/03/20 22 04/04/2022 HEMOG LOBIN A1C hemoglobin A1C 5.9 %_of_ total _HGB <5.7 high For someo ne witho ut known diabe jessica, a hemog lobin A1c value betwe en 5.7% and 6.4% is consi stent with predi abete s and shoul d be confi rmed with a follo w-up test. For someo ne with known diabe jessica, a value <7% indic ates that their diabe jessica is well contr olled . A1c targe ts shoul d be indiv idual ized based on durat ion of diabe jessica, age, comor bid condi tions , and other consi derat ions. This assay resul t is consi stent with an incre ased risk of diabe jessica. Curre ntly, no conse nsus exist s devyn wharton use of hemog lobin A1c for diagn osis of diabe jessica for child shaan. Not Available [facility] [address] [address] [place], [address], 04/04/2022 14:28:23 04/03/20 22 04/04/2022 COMPR EHENS LUI METAB OLIC PANEL eGFR 74 mL/mi n/1.7 3m2 > or = 60 normal The eGFR is based on the CKD-E PI 2020 equat ion. To calcu late the new eGFR from a previ ous Creat inine or Cysta tin C resul t, go to https :[email or web address] /[email or web address] 5Fcal culat or Not Available [facility] [address] [address] [place], [address], 04/04/2022 14:28:23 04/03/20 22 04/04/2022 COMPR EHENS LUI METAB OLIC PANEL glucose 107 mg/dL 65-99 high Fasti ng refer ence inter kiran For someo ne witho ut known diabe jessica, a gluco se value betwe en 100 and 125 mg/dL is consi stent with predi abete s and shoul d be confi rmed with a follo w-up test. Not Available [address], [address], 04/04/2022 14:28:23 04/03/20 22 04/04/2022 COMPR EHENS LUI METAB OLIC PANEL urea nitrogen (BUN) 13 mg/dL 7-25 normal Not Available [address], [address], 04/04/2022 14:28:23 04/03/20 22 04/04/2022 COMPR EHENS LUI METAB OLIC PANEL creatinine 0.96 mg/dL 0.50-0 .99 normal Not Available [address], [address], 04/04/2022 14:28:23 04/03/20 22 04/04/2022 COMPR EHENS LUI METAB OLIC PANEL BUN/creatini ne ratio not applic able (calc ) 6-22 Not Available [address], [address], 04/04/2022 14:28:23 04/03/20 22 04/04/2022 COMPR EHENS LUI METAB OLIC PANEL sodium 139 mmol/ L 135-14 6 normal Not Available [address], [address], 04/04/2022 14:28:23 04/03/20 22 04/04/2022 COMPR EHENS LUI METAB OLIC PANEL potassium 4.3 mmol/ L 3.5-5. 3 normal Not Available [address], [address], 04/04/2022 14:28:23 04/03/20 22 04/04/2022 COMPR EHENS LUI METAB OLIC PANEL chloride 104 mmol/ L 98-110 normal Not Available [address], [address], 04/04/2022 14:28:23 04/03/20 22 04/04/2022 COMPR EHENS LUI METAB OLIC PANEL carbon dioxide 26 mmol/ L 20-32 normal Not Available [address], [address], 04/04/2022 14:28:04/03/20 22 04/04/2022 COMPR EHENS LUI METAB OLIC PANEL calcium 8.9 mg/dL 8.6-10 .2 normal Not Available [address], [address], 04/04/2022 14:28:04/03/20 22 04/04/2022 COMPR EHENS LUI METAB OLIC PANEL protein, total 6.7 g/dL 6.1-8. 1 normal Not Available [address], [address], 04/04/2022 14:28:23 04/03/20 22 04/04/2022 COMPR EHENS LUI METAB OLIC PANEL albumin 4.1 g/dL 3.6-5. 1 normal Not Available [address], [address], 04/04/2022 14:28:23 04/03/20 22 04/04/2022 COMPR EHENS LUI METAB OLIC PANEL globulin 2.6 g/dL_ (calc ) 1.9-3. 7 normal Not Available [address], [address], 04/04/2022 14:28:23 04/03/20 22 04/04/2022 COMPR EHENS LUI METAB OLIC PANEL albumin/glob ulin ratio 1.6 (calc ) 1.0-2. 5 normal Not Available [address], [address], 04/04/2022 14:28:23 04/03/20 22 04/04/2022 COMPR EHENS LUI METAB OLIC PANEL bilirubin, total 0.3 mg/dL 0.2-1. 2 normal Not Available [address], [address], 04/04/2022 14:28:23 04/03/20 22 04/04/2022 COMPR EHENS LUI METAB OLIC PANEL alkaline phosphatase 97 U/L 31-125 normal Not Available [address], [address], 04/04/2022 14:28:23 04/03/20 22 04/04/2022 COMPR EHENS LUI METAB OLIC PANEL AST 16 U/L 10-35 normal Not Available [address], [address], 04/04/2022 14:28:23 04/03/20 22 04/04/2022 COMPR EHENS LUI METAB OLIC PANEL ALT 20 U/L 6-29 normal Not Available [address], [address], 04/04/2022 14:28:23 04/03/20 22 04/04/2022 LIPID PANEL WITH RATIO S HDL cholesterol 47 mg/dL > or = 50 low Not Available [address], [address], 04/04/2022 14:28:22 04/03/20 22 04/04/2022 LIPID PANEL WITH RATIO S cholesterol, total 166 mg/dL <200 normal Not Available [address], [address], 04/04/2022 14:28:22 04/03/2004/04/2022 LIPID PANEL WITH RATIO S triglyceride s 128 mg/dL <150 normal Not Available [address], [address], 04/04/2022 14:28:22 04/03/20 22 04/04/2022 LIPID PANEL WITH RATIO S LDL-choleste rol 97 mg/dL _(rey c) normal Refer ence range : <100 Joaquim able range <100 mg/dL for prima ry preve ntion ; <70 mg/dL for patie nts with CHD or diabe tic patie nts with > or = 2 CHD risk facto rs. LDL-C is now calcu lated using the Patti n-Hop kins calcu latdulce maria n, which is a valid ated novel metho d provi ding saúl r accur acy than the Fried ignacio equat ion in the estim ation of LDL-C . Patti aguillon SS et al. NATHALIE. 2013; 310(1 9): 2061- 2068 (http ://ed ucati on.Qu estDi Offerama. com/f aq/FA Q164) Not Available [address], [address], 04/04/2022 14:28:22 04/03/2004/04/2022 LIPID PANEL WITH RATIO S chol/HDLC ratio 3.5 (calc ) <5.0 normal Not Available [address], [address], 04/04/2022 14:28:22 04/03/2004/04/2022 LIPID PANEL WITH RATIO S LDL/HDL ratio 2.1 (calc ) Below avera ge Risk: <2.34 [place] ge Risk: 2.35- 4.12 Moder ate Risk: 4.13- 5.56 High Risk: >5.57 Not Available [address], [address], 04/04/2022 14:28:22 04/03/2024 0404/04/2022 LIPID PANEL WITH RATIO S non HDL cholesterol 119 mg/dL _(rey c) <130 normal For patie nts with diabe jessica plus 1 major ASCVD risk facto r, treat ing to a non-H DL-C goal of <100 mg/dL (LDL- C of <70 mg/dL ) is collin elias optio n. Not Available [address], [address], 04/04/2022 14:28:04/03/20 22 04/04/2022 TSH+F REE T4 TSH 1.27 mIU/L normal Refer ence Range > or = 20 Years 0.40- 4.50 Pregn libra Range s First trime ster 0.26- 2.66 Secon d trime ster 0.55- 2.73 Third trime ster 0.43- 2.91 Not Available [address], [address], 04/04/2022 14:28:21 04/03/20 22 04/04/2022 TSH+F REE T4 T4, free 1.0 NG/dL 0.8-1. 8 normal Not Available [address], [address], 04/04/2022 14:28:21 04/03/20 22 04/04/2022 ALBUM IN, RANDO M URINE W/CRE ATINI NE creatinine, random urine 101 mg/dL 20-275 normal Not Available [address], [address], 04/04/2022 14:28:20 04/03/20 22 04/04/2022 ALBUM IN, RANDO M URINE W/CRE ATINI NE albumin, urine <0.2 mg/dL see note: normal Refer ence Range : Refer ence Range Not estab lishe d Not Available [address], [address], 04/04/2022 14:28:20 04/03/20 22 04/04/2022 ALBUM IN, RANDO M URINE W/CRE ATINI NE albumin/crea tinine ratio, random urine note mcg/m g_cre at <30 normal NOTE: The urine album in value is less than 0.2 mg/dL there fore we are unabl e to calcu late excre tion and/o r creat inine ratio . The ADA defin es abnor malit ies in album in excre tion as follo ws: Album inuri a Categ ory Resul t (mcg/ mg creat inine ) Pat l to Mildl y incre ased <30 Moder ately incre ased 30-29 9 Sever gerson incre ased > OR = 300 The ADA recom mends that at least two of three speci mens colle cted withi n a 3-6 month perio d be abnor mal befor e consi wesley g a patie nt to be withi n a diagn ostic categ ory. Not Available [address] [place], [address], 04/04/2022 14:28:20 04/03/20 22 04/04/2022 CBC (INCL UDES DIFF/ PLT) white blood cell count 8.7 thous and/u L 3.8-10 .8 normal Not Available [address] [place], [address], 04/04/2022 14:28:24 04/03/20 22 04/04/2022 CBC (INCL UDES DIFF/ PLT) red blood cell count 4.81 génesis on/uL 3.80-5 .10 normal Not Available [facility] [address], [address], 04/04/2022 14:28:24 04/03/20 22 04/04/2022 CBC (INCL UDES DIFF/ PLT) hemoglobin 13.1 g/dL 11.7-1 5.5 normal Not Available [facility] [address] [place], [address], 04/04/2022 14:28:24 04/03/20 22 04/04/2022 CBC (INCL UDES DIFF/ PLT) hematocrit 40.6 % 35.0-4 5.0 normal Not Available [address], [address], 04/04/2022 14:28:04/03/20 22 04/04/2022 CBC (INCL UDES DIFF/ PLT) MCV 84.4 fL 80.0-1 00.0 normal Not Available [address], [address], 04/04/2022 14:28:04/03/20 22 04/04/2022 CBC (INCL UDES DIFF/ PLT) MCH 27.2 pg 27.0-3 3.0 normal Not Available [address], [address], 04/04/2022 14:28:04/03/20 22 04/04/2022 CBC (INCL UDES DIFF/ PLT) MCHC 32.3 g/dL 32.0-3 6.0 normal Not Available [address], [address], 04/04/2022 14:28:04/03/20 22 04/04/2022 CBC (INCL UDES DIFF/ PLT) RDW 13.5 % 11.0-1 5.0 normal Not Available [address], [address], 04/04/2022 14:28:04/03/20 22 04/04/2022 CBC (INCL UDES DIFF/ PLT) platelet count 324 thous and/u L 140-40 0 normal Not Available [address], [address], 04/04/2022 14:28:24 04/03/20 22 04/04/2022 CBC (INCL UDES DIFF/ PLT) MPV 9.8 fL 7.5-12 .5 normal Not Available [address], [address], 04/04/2022 14:28:24 04/03/20 22 04/04/2022 CBC (INCL UDES DIFF/ PLT) absolute neutrophils 6081 cells /uL 1500-7 800 normal Not Available [address], [address], 04/04/2022 14:28:24 04/03/20 22 04/04/2022 CBC (INCL UDES DIFF/ PLT) absolute lymphocytes 1740 cells /uL 850-39 00 normal Not Available [address], [address], 04/04/2022 14:28:24 04/03/20 22 04/04/2022 CBC (INCL UDES DIFF/ PLT) absolute monocytes 618 cells /uL 200-95 0 normal Not Available [address], [address], 04/04/2022 14:28:24 04/03/20 22 04/04/2022 CBC (INCL UDES DIFF/ PLT) absolute eosinophils 209 cells /uL 15-500 normal Not Available [address], [address], 04/04/2022 14:28:24 04/03/20 22 04/04/2022 CBC (INCL UDES DIFF/ PLT) absolute basophils 52 cells /uL 0-200 normal Not Available [facility] [address], [address], 04/04/2022 14:28:24 04/03/20 22 04/04/2022 CBC (INCL UDES DIFF/ PLT) neutrophils 69.9 % normal Not Available [address], [address], 04/04/2022 14:28:24 04/03/20 22 04/04/2022 CBC (INCL UDES DIFF/ PLT) lymphocytes 20.0 % normal Not Available [address], [address], 04/04/2022 14:28:24 04/03/20 22 04/04/2022 CBC (INCL UDES DIFF/ PLT) monocytes 7.1 % normal Not Available [address], [address], 04/04/2022 14:28:24 04/03/20 22 04/04/2022 CBC (INCL UDES DIFF/ PLT) eosinophils 2.4 % normal Not Available [address], [address], 04/04/2022 14:28:24 04/03/20 22 04/04/2022 CBC (INCL UDES DIFF/ PLT) basophils 0.6 % normal Not Available [address], [address], 04/04/2022 14:28:24 07/01/20 23 07/02/2023 ALBUM IN, RANDO M URINE W/CRE ATINI NE creatinine, random urine 188 mg/dL 20-275 normal Not Available [address], [address], 07/02/2023 16:13:46 07/01/20 23 07/02/2023 ALBUM IN, RANDO M URINE W/CRE ATINI NE albumin, urine 0.3 mg/dL see note: normal Refer ence Range : Refer ence Range Not estab lishe d Not Available [address], [address], 07/02/2023 16:13:46 07/01/20 23 07/02/2023 ALBUM IN, RANDO M URINE W/CRE ATINI NE albumin/crea tinine ratio, random urine 2 mcg/m g_cre at <30 normal The ADA defin es abnor malit ies in album in excre tion as follo ws: Album inuri a Categ ory Resul t (mcg/ mg creat inine ) Pat l to Mildl y incre ased <30 Moder ately incre ased 30-29 9 Sever gerson incre ased > OR = 300 The ADA recom mends that at least two of three speci mens colle cted withi n a 3-6 month perio d be abnor mal befor e consi wesley g a patie nt to be withi n a diagn ostic categ ory. Not Available [facility] [address] [place], [address], 07/02/2023 16:13:46 07/01/20 23 07/02/2023 TSH+F REE T4 TSH 1.58 mIU/L normal Refer ence Range > or = 20 Years 0.40- 4.50 Pregn libra Range s First trime ster 0.26- 2.66 Secon d trime ster 0.55- 2.73 Third trime ster 0.43- 2.91 Not Available [facility] [address] [place], [address], 07/02/2023 16:13:47 07/01/20 23 07/02/2023 TSH+F REE T4 T4, free 1.0 NG/dL 0.8-1. 8 normal Not Available [facility] [address] [place], [address], 07/02/2023 16:13:47 07/01/20 23 07/02/2023 LIPID PANEL WITH RATIO S cholesterol, total 144 mg/dL <200 normal Not Available [facility] [address] [place], [address], 07/02/2023 16:13:48 07/01/20 23 07/02/2023 LIPID PANEL WITH RATIO S HDL cholesterol 39 mg/dL > or = 50 low Not Available [facility] [address] [place], [address], 07/02/2023 16:13:48 07/01/20 23 07/02/2023 LIPID PANEL WITH RATIO S triglyceride s 134 mg/dL <150 normal Not Available [address], [address], 07/02/2023 16:13:48 07/01/20 23 07/02/2023 LIPID PANEL WITH RATIO S LDL-choleste rol 82 mg/dL _(rey c) normal Refer ence range : <100 Joaquim able range <100 mg/dL for prima ry preve ntion ; <70 mg/dL for patie nts with CHD or diabe tic patie nts with > or = 2 CHD risk facto rs. LDL-C is now calcu lated using the Patti n-Hop kins calcu latdulce maria n, which is a valid ated novel metho d provi ding saúl r accur acy than the Fried ignacio equat ion in the estim ation of LDL-C . Patti aguillon SS et al. NATHALIE. 2013; 310(1 9): 2061- 2068 (http ://ed ucati on.Qu estDi Offerama. com/f aq/FA Q164) Not Available [address], [address], 07/02/2023 16:13:48 07/01/20 23 07/02/2023 LIPID PANEL WITH RATIO S chol/HDLC ratio 3.7 (calc ) <5.0 normal Not Available [address], [address], 07/02/2023 16:13:48 07/01/20 23 07/02/2023 LIPID PANEL WITH RATIO S LDL/HDL ratio 2.1 (calc ) Below avera ge Risk: <2.34 [place] ge Risk: 2.35- 4.12 Moder ate Risk: 4.13- 5.56 High Risk: >5.57 Not Available [address], [address], 07/02/2023 16:13:48 07/01/20 23 07/02/2023 LIPID PANEL WITH RATIO S non HDL cholesterol 105 mg/dL _(rey c) <130 normal For patie nts with diabe jessica plus 1 major ASCVD risk facto r, treat ing to a non-H DL-C goal of <100 mg/dL (LDL- C of <70 mg/dL ) is consi dered a thera peuti c optio n. Not Available [address] [address] [place], [address], 07/02/2023 16:13:48 07/01/20 23 07/02/2023 COMPR EHENS LUI METAB OLIC PANEL glucose 104 mg/dL 65-99 high Fasti ng refer ence inter kiran For someo ne witho ut known diabe jessica, a gluco se value betwe en 100 and 125 mg/dL is consi stent with predi abete s and shoul d be confi rmed with a follo w-up test. Not Available [address] [address] [place], [address], 07/02/2023 16:13:49 07/01/20 23 07/02/2023 COMPR EHENS LUI METAB OLIC PANEL urea nitrogen (BUN) 15 mg/dL 7-25 normal Not Available [address] [address] [place], [address], 07/02/2023 16:13:49 07/01/20 23 07/02/2023 COMPR EHENS LUI METAB OLIC PANEL creatinine 1.06 mg/dL 0.50-0 .99 high Not Available [facility] [address] [address] [place], [address], 07/02/2023 16:13:49 07/01/20 23 07/02/2023 COMPR EHENS LUI METAB OLIC PANEL eGFR 66 mL/mi n/1.7 3m2 > or = 60 normal Not Available [facility] [address] [address] [place], [address], 07/02/2023 16:13:49 07/01/20 23 07/02/2023 COMPR EHENS LUI METAB OLIC PANEL BUN/creatini ne ratio 14 (calc ) 6-22 normal Not Available [address], [address], 07/02/2023 16:13:49 07/01/20 23 07/02/2023 COMPR EHENS LUI METAB OLIC PANEL sodium 140 mmol/ L 135-14 6 normal Not Available [address], [address], 07/02/2023 16:13:49 07/01/20 23 07/02/2023 COMPR EHENS LUI METAB OLIC PANEL potassium 3.8 mmol/ L 3.5-5. 3 normal Not Available [address], [address], 07/02/2023 16:13:49 07/01/20 23 07/02/2023 COMPR EHENS LUI METAB OLIC PANEL chloride 105 mmol/ L 98-110 normal Not Available [address], [address], 07/02/2023 16:13:49 07/01/20 23 07/02/2023 COMPR EHENS LUI METAB OLIC PANEL carbon dioxide 28 mmol/ L 20-32 normal Not Available [address], [address], 07/02/2023 16:13:49 07/01/20 23 07/02/2023 COMPR EHENS LUI METAB OLIC PANEL calcium 8.3 mg/dL 8.6-10 .2 low Not Available [address], [address], 07/02/2023 16:13:49 07/01/20 23 07/02/2023 COMPR EHENS LUI METAB OLIC PANEL protein, total 6.2 g/dL 6.1-8. 1 normal Not Available [address] [place], [address], 07/02/2023 16:13:49 07/01/20 23 07/02/2023 COMPR EHENS LUI METAB OLIC PANEL albumin 4.0 g/dL 3.6-5. 1 normal Not Available [address], [address], 07/02/2023 16:13:49 07/01/20 23 07/02/2023 COMPR EHENS LUI METAB OLIC PANEL globulin 2.2 g/dL_ (calc ) 1.9-3. 7 normal Not Available [address], [address], 07/02/2023 16:13:49 07/01/20 23 07/02/2023 COMPR EHENS LUI METAB OLIC PANEL albumin/glob ulin ratio 1.8 (calc ) 1.0-2. 5 normal Not Available [address] [address] [place], [address], 07/02/2023 16:13:49 07/01/20 23 07/02/2023 COMPR EHENS LUI METAB OLIC PANEL bilirubin, total 0.3 mg/dL 0.2-1. 2 normal Not Available [address], [address], 07/02/2023 16:13:49 07/01/20 23 07/02/2023 COMPR EHENS LUI METAB OLIC PANEL alkaline phosphatase 76 U/L 31-125 normal Not Available [facility] [address] [address] [place], [address], 07/02/2023 16:13:49 07/01/20 23 07/02/2023 COMPR EHENS LUI METAB OLIC PANEL AST 14 U/L 10-35 normal Not Available [address], [address], 07/02/2023 16:13:49 07/01/20 23 07/02/2023 COMPR EHENS LUI METAB OLIC PANEL ALT 14 U/L 6-29 normal Not Available [address] [address] [place], [address], 07/02/2023 16:13:49 07/01/20 23 07/02/2023 HEMOG LOBIN A1C hemoglobin A1C 5.3 %_of_ total _HGB <5.7 normal For the purpo se of screluzma kong for the prese nce of diabe jessica: <5.7% Consi stent with the absen ce of diabe jessica 5.7-6 .4% Consi stent with incre ased risk for diabe jessica (pred iabet es) > or =6.5% Consi stent with diabe jessica This assay resul t is consi stent with a decre ased risk of diabe jessica. Curre ntly, no conse nsus exist s devyn wharton use of hemog lobin A1c for diagn osis of diabe jessica in child shaan. Accor ding to [employer] can Diabe jessica [employer] n (ADA) guide lines , hemog lobin A1c <7.0% repre sents optim al contr ol in non-p regna nt diabe tic patie nts. Diffe rent metri cs may apply to speci fic patie nt popul ation s. Stand ards of Medic al Care in Diabe jessica(A DA). Not Available [facility] [address] [address] [address], [place], [address], 07/02/2023 16:13:51 07/01/20 23 07/02/2023 CBC (INCL UDES DIFF/ PLT) white blood cell count 9.2 thous and/u L 3.8-10 .8 normal Not Available [facility] [address] [address] [place], [address], 07/02/2023 16:13:52 07/01/20 23 07/02/2023 CBC (INCL UDES DIFF/ PLT) red blood cell count 4.43 génesis on/uL 3.80-5 .10 normal Not Available [address], [address], 07/02/2023 16:13:52 07/01/20 23 07/02/2023 CBC (INCL UDES DIFF/ PLT) hemoglobin 12.2 g/dL 11.7-1 5.5 normal Not Available [address], [address], 07/02/2023 16:13:52 07/01/20 23 07/02/2023 CBC (INCL UDES DIFF/ PLT) hematocrit 37.2 % 35.0-4 5.0 normal Not Available [address], [address], 07/02/2023 16:13:52 07/01/20 23 07/02/2023 CBC (INCL UDES DIFF/ PLT) MCV 84.0 fL 80.0-1 00.0 normal Not Available [address], [address], 07/02/2023 16:13:52 07/01/20 23 07/02/2023 CBC (INCL UDES DIFF/ PLT) MCH 27.5 pg 27.0-3 3.0 normal Not Available [address], [address], 07/02/2023 16:13:52 07/01/20 23 07/02/2023 CBC (INCL UDES DIFF/ PLT) MCHC 32.8 g/dL 32.0-3 6.0 normal Not Available [address], [address], 07/02/2023 16:13:52 07/01/20 23 07/02/2023 CBC (INCL UDES DIFF/ PLT) RDW 12.9 % 11.0-1 5.0 normal Not Available [address], [address], 07/02/2023 16:13:52 07/01/20 23 07/02/2023 CBC (INCL UDES DIFF/ PLT) platelet count 317 thous and/u L 140-40 0 normal Not Available [address], [address], 07/02/2023 16:13:52 07/01/20 23 07/02/2023 CBC (INCL UDES DIFF/ PLT) MPV 10.6 fL 7.5-12 .5 normal Not Available [address], [address], 07/02/2023 16:13:52 07/01/20 23 07/02/2023 CBC (INCL UDES DIFF/ PLT) absolute neutrophils 6955 cells /uL 1500-7 800 normal Not Available [address], [address], 07/02/2023 16:13:52 07/01/20 23 07/02/2023 CBC (INCL UDES DIFF/ PLT) absolute lymphocytes 1398 cells /uL 850-39 00 normal Not Available [address], [address], 07/02/2023 16:13:52 07/01/20 23 07/02/2023 CBC (INCL UDES DIFF/ PLT) absolute monocytes 727 cells /uL 200-95 0 normal Not Available [address], [address], 07/02/2023 16:13:52 07/01/20 23 07/02/2023 CBC (INCL UDES DIFF/ PLT) absolute eosinophils 83 cells /uL 15-500 normal Not Available [address], [address], 07/02/2023 16:13:52 07/01/20 23 07/02/2023 CBC (INCL UDES DIFF/ PLT) absolute basophils 37 cells /uL 0-200 normal Not Available [address] [place], [address], 07/02/2023 16:13:52 07/01/20 23 07/02/2023 CBC (INCL UDES DIFF/ PLT) neutrophils 75.6 % normal Not Available [facility] [address], [address], 07/02/2023 16:13:52 07/01/20 23 07/02/2023 CBC (INCL UDES DIFF/ PLT) lymphocytes 15.2 % normal Not Available [facility] [address], [address], 07/02/2023 16:13:52 07/01/2007/02/2023 CBC (INCL UDES DIFF/ PLT) monocytes 7.9 % normal Not Available [address], [address], 07/02/2023 16:13:52 07/01/20 23 07/02/2023 CBC (INCL UDES DIFF/ PLT) eosinophils 0.9 % normal Not Available [facility] [address], [address], 07/02/2023 16:13:52 07/01/20 23 07/02/2023 CBC (INCL UDES DIFF/ PLT) basophils 0.4 % normal Not Available [address], [address], 07/02/2023 16:13:52 07/01/20 23 07/02/2023 VITAM IN B12/F OLATE , SERUM PANEL vitamin B12 286 pg/mL 200-11 00 normal Pleas e Note: Altho ugh the refer ence range for vitam in B12 is 200-1 100 pg/mL , it has been repor guevara that betwe en 5 and 10% of patie nts with value s betwe en 200 and 400 pg/mL may exper ience neuro psych iatri c and hemat ologi c abnor malit ies due to occul t B12 defic iency ; less than 1% of patie nts with value s above 400 pg/mL will have sympt oms. Not Available [facility] [address] [place], [address], 07/02/2023 16:13:53 07/01/20 23 07/02/2023 VITAM IN B12/F OLATE , SERUM PANEL folate, serum 7.7 NG/mL normal Refer ence Range Low: <3.4 Borde rline : 3.4-5 .4 Pat l: >5.4 Not Available [facility] [address] [address], [place], [address], 07/02/2023 16:13:53 03/20/20 22 02/27/2022 MAMMO , erin kong, digit al, bilat eral No observ ation record ed. [id number] Not Available 10/01/2022 02:55:12 Result Notes None recorded. Problems Name Problem SNOMED Code Status Onset Date Resolution Date Notes Provider Name and Address Organization Details Recorded Time Bilateral knee pain Active 2021 Not Available [facility] 4 14:23:43 Pain of left temporoman dibular joint 0204587775019 9107 Active 2021 Not Available [facility] 4 14:23:43 Acute sinusitis 51018245 Active 2022 Not Available [facility] 4 14:23:43 Body mass index 30+ - obesity 995124022 Active Not Available [facility] 4 14:23:43 Urinary incontinen ce 646890108 Active Not Available [facility] 4 14:23:43 Plantar fasciitis 068640702 Active Not Available [facility] 4 14:23:43 Lichen sclerosus et atrophicus Active Not Available [facility] 4 14:23:43 Dyspnea 747327059 Active 2021 Not Available [facility] 4 14:23:43 Recurrent major depressive episodes 824453071 Active Not Available [facility] 4 14:23:43 Vaginal discharge 437145182 Active Not Available [facility] 4 14:23:43 Lesion of vulva 278600357 Active Not Available [facility] 4 14:23:43 Adnexal tenderness 401944640 Active Not Available [facility] 4 14:23:43 Chronic sciatica 423939811 Active Not Available [facility] 4 14:23:43 Temporoman dibular joint disorder 75870523 Active Not Available [facility] 4 14:23:43 Emotional stress 013562557 Active Not Available [facility] 4 14:23:44 Well controlled type 2 diabetes mellitus 792256618 Active 2021 Not Available [facility] 4 14:23:44 Sinus headache 0018662 Active Not Available [facility] 4 14:23:44 Hyperlipid emia 06597720 Active Not Available [facility] 4 14:23:44 Allergic rhinitis 94318997 Active Not Available [facility] 4 14:23:44 Recurrent major depression 50705668 Active 2021 Not Available [facility] 4 14:23:44 Acute maxillary sinusitis 87269629 Active Not Available [facility] 4 14:23:44 Obstructiv e sleep apnea syndrome 97024382 Active Not Available [facility] 4 14:23:44 Fatigue 22541801 Active Not Available [facility] 4 14:23:44 Weight gain 6981525 Active Not Available [facility] 4 14:23:44 Acute frontal sinusitis 32366445 Active 2022 Not Available [facility] 4 14:23:44 Impaired glucose tolerance 8647702 Active 2021 Not Available [facility] 4 14:23:44 Anxiety 02442337 Active 2022 Not Available [facility] 4 14:23:44 Depressive disorder 39839105 Active 2022 Not Available [facility] 4 14:23:43 Ulcer of nose 87211240 Active 2022 Not Available [facility] 4 14:23:44 Constipati on 00396700 Active 2022 Not Available [facility] 4 14:23:43 Attention deficit hyperactiv ity disorder 130809735 Active 2022 Not Available [facility] 4 14:23:43 Acid reflux 893016677 Active 2023 CARTER Gilbert [address] [place] [address], [facility] [address], [place], [address] , [facility] [employer] [facility] 4 10:50:55 Notes:Some problems listed i n Documents: #[id number], #[id number] could not be added to this patient's chart. Please review these documents and add these problems to the patient's chart manually as needed. Problem Notes None recorded. Procedures Surgical History Date Name Laterality Status Provider Name and Address Organization Details Recorded Time 022 Cystourethroscopy completed Not Available [facility] 10/01/2022 02:37:39 021 Most Recent Mammogram completed Not Available [facility] 10/01/2022 02:37:33 021 Date of Last Pap Smear completed Not Available [facility] 10/01/2022 02:37:33 018 Date of Last Colonoscopy completed Not Available [facility] 10/01/2022 02:37:33 015 other completed Not Available [facility] 10/01/2022 02:37:39 012 Cholecystectomy completed Not Available [facility] 10/01/2022 02:37:39 011 Hemorrhoidectomy completed Not Available [facility] 10/01/2022 02:37:39 Orthopedic Surgery completed Not Available [facility] 10/01/2022 02:37:39 SPEECH LANG PATH THERAPIST Procedure completed Not Available [facility] 10/01/2022 02:37:39 insertion of single incision mid-urethral mini-sling completed Not Available [facility] 10/01/2022 02:37:39 Imaging Results Imaging Date Name Status LastModified by Organ [facility] Details LastModified Time 02/27/2022 MAMMO, screening, digital, bilateral completed [id number] Information not available 10/01/2022 02:55:12 Procedure Notes None recorded. Medical Equipment None Reported. Allergies Allergen ID Allergen Name Allergen Category Reaction Reaction Severity Criticality Documentation Date Start Date Code Code System Note Provider Name and Address Organization Details Recorded Time 4192 Keflex medicatio n rash severe Not available 10/01/2022 12179 7 RxNorm Not Available [facility] 3 02:54:27 4193 Medicinal product containin g cephalosp omer and acting as antibacte rial agent (product) medicatio n itching Not available Not available 10/01/2022 79146 9009 SNOMED and closi ng of throa t Not Available [facility] 3 02:54:27 4194 cephalexi n medicatio n rash severe Not available 10/01/2022 2231 RxNorm Not Available [facility] 3 02:54:27 4195 Cefzil medicatio n rash severe Not available 10/01/2022 92979 1 RxNorm Not Available [facility] 3 02:54:27 4196 Ceftin medicatio n rash severe Not available 10/01/2022 23319 6 RxNorm Not Available [facility] 3 02:54:27 4197 amoxicill in medicatio n Not available Not available Not available 10/01/2022 723 RxNorm Not Available [facility] 3 02:54:27 Medications Name Sig Start Date Stop Date Status Note LastModified by Organization Details LastModified Time celecoxib 200 mg capsule 03/25 completed Not Available Not Available Not Available cyclobenz aprine 10 mg tablet TAKE 1 TABLET 3 TIMES A DAY BY ORAL ROUTE NEEDED. active Not Available Not Available No t Available amoxicill in 500 mg capsule active Not Available Not Available Not Available clotrimaz ole 10 mg nathen Take 1 tablet 5 times a day by oral route for 5 days. active Not Available Not Available No t Available doxycycli ne hyclate 100 mg capsule Take 1 capsule twice a day w/meal 06/09 completed Not Available Not Available Not Available atorvasta tin 20 mg tablet TAKE 1 TABLET BY MOUTH DAILY active Not Available Not Available No t Available ropinirol e 1 mg tablet TAKE 1 TABLET BY MOUTH AT BEDTIME 07/27 /2021 completed Not Available Not Available Not Available ketoconaz ole 2 % shampoo APPLY SHAMPOO TO SCALP TWICE WEEKLY 05/24 completed Not Available Not Available Not Available clindamyc in HCl 300 mg capsule TAKE 1 CAPSULE BY MOUTH TWICE A DAY 06/15 completed Not Available Not Available Not Available citalopra m 40 mg tablet Take 1 tablet every day by oral route. active Not Available Not Available No t Available oxybutyni n chloride ER 10 mg tablet,ex tended release 24 hr Take 1 tablet every day by oral route for 90 days. active Not Available Not Available No t Available ibuprofen 800 mg tablet TAKE 1 TABLET BY MOUTH 3 TIMES DAILY NEEDED 2022 active Not Available Not Available Not Avai lable tizanidin e 4 mg tablet TAKE 1 AND 1/2 TABLETS (6 MG) BY MOUTH AT BEDTIME 03/25 completed Not Available Not Available Not Available fluconazo le 150 mg tablet TAKE 1 TAB BY MOUTH ONCE DAILY ON DAYS 1, 3 AND 6 OF ANTIBIOT IC. 06/09 completed Not Available Not Available Not Available citalopra m 10 mg tablet active Not Available Not Available Not Available clarithro mycin 500 mg tablet active Not Available Not Available No t Available tolterodi ne ER 4 mg capsule,e xtended release 24 hr TAKE 1 CAPSULE( S) EVERY DAY BY ORAL ROUTE FOR 90 DAYS. 05/24 completed Not Available Not Available Not Available hydrocodo ne 5 mg-acetam inophen 325 mg tablet TAKE 1 TABLET BY MOUTH EVERY 6 TO 8 HOURS NEEDED FOR PAIN 09/30 completed Not Available Not Available Not Available meloxicam 15 mg tablet TAKE 1 TABLET BY MOUTH EVERY DAY FOR 2 WEEKS 06/15 completed Not Available Not Available Not Available metronida zole 0.75 % (37.5 mg/5 gram) vaginal gel Insert 1 applicat orful by vaginal route at bedtime for 5 days. 06/15 completed Not Available Not Available Not Available prednison e 20 mg tablet Take 2 tablets every day by oral route for 5 days. 06/09 completed Not Available Not Available Not Available clonazepa m 1 mg tablet active Not Available Not Available Not Available clobetaso l 0.05 % topical cream Apply 1 g twice a day by topical route for 30 days. active Not Available Not Available No t Available Zithromax Z-Yash 250 mg tablet TAKE 2 TABLETS (500 MG) BY ORAL ROUTE ONCE DAILY FOR 1 DAY THEN 1 TABLET (250 MG) BY ORAL ROUTE ONCE DAILY FOR 4 DAYS 09/30 completed Not Available Not Available Not Available phentermi ne 15 mg capsule TAKE 1 CAPSULE BY MOUTH DAILY BEFORE BREAKFAS T 10/30 completed Not Available Not Available Not Available oxycodone 5 mg/5 mL oral solution active Not Available Not Available Not Available topiramat e 25 mg tablet TAKE 1 TABLET BY MOUTH TWICE A DAY 10/30 completed Not Available Not Available Not Available phentermi ne 37.5 mg tablet TAKE 1 TABLET BY MOUTH EVERY DAY active Not Available Not Available No t Available acetamino phen 300 mg-codein e 30 mg tablet active Not Available Not Available Not Available tramadol 50 mg tablet 03/25 completed Not Available Not Available Not Available triamcino lone acetonide 0.1 % topical cream 03/25 completed Not Available Not Available Not Available pantopraz ole 20 mg tablet,de layed release Take 1 tablet every day by oral route before meal(s). active Not Available Not Available No t Available pramipexo le 0.5 mg tablet active Not Available Not Available Not Available meloxicam 7.5 mg tablet Take 1 tablet twice a day by oral route as needed. active Per Adriana ervin to do 15mg once a day. Not Available Not Available Not Available alprazola m 0.5 mg tablet TAKE HALF A TAB TO ONE TAB TWICE A DAY NEEDED active Not Available Not Available No t Available amoxicill in 875 mg tablet Take 1 tablet every 12 hours by oral route. active Not Available Not Available No t Available alprazola m 0.25 mg tablet Take 1 tablet 3 times a day by oral route as needed. active manually fax. Not Available Not Available Not Available citalopra m 20 mg tablet active Not Available Not Available Not Available methocarb alvino 750 mg tablet Take 1 tablet every day by oral route at bedtime. active Not Available Not Available No t Available ropinirol e 0.25 mg tablet TAKE 1 TAB BY MOUTH ONCE AT BEDTIME. INCREASE TO 2 TABS IF NOT EFFECTIV E. 02/26 completed Not Available Not Available Not Available imiquimod 5 % topical cream packet APPLY TO WARTS EVERY NIGHT AT BEDTIME 03/25 completed Not Available Not Available Not Available benzonata te 100 mg capsule active Not Available Not Available Not Available doxycycli ne monohydra te 100 mg capsule TAKE 1 CAPSULE BY MOUTH TWICE A DAY FOR 7 DAYS 04/11 completed Not Available Not Available Not Available triamcino lone acetonide 40 mg/mL suspensio n for injection Take 2 mL by injectio n route. 06/09 completed Not Available Not Available Not Available hydrocodo ne 7.5 mg-acetam inophen 325 mg tablet 06/15 completed Not Available Not Available Not Available oseltamiv ir 75 mg capsule Take 1 capsule twice a day by oral route. 06/15 completed Not Available Not Available Not Available triamcino lone acetonide 0.1 % topical ointment APPLY A THIN LAYER TO THE AFFECTED AREA(S) of nose BY TOPICAL ROUTE 2 TIMES PER DAY x 7-10 days active Not Available Not Available No t Available docusate sodium 100 mg capsule TAKE 1 CAPSULE BY MOUTH EVERY DAY active Not Available Not Available No t Available gabapenti n 300 mg capsule TAKE 1 CAPSULE BY MOUTH EVERYDAY AT BEDTIME 04/11 completed Not Available Not Available Not Available diclofena c sodium 75 mg tablet,de layed release active Not Available Not Available Not Available monteluka st 10 mg tablet TAKE 1 TABLET BY MOUTH IN THE MORNING active Not Available Not Available No t Available mupirocin 2 % topical ointment USE DIRECTED 3 TIMES A DAY IN NASAL REGION 06/09 completed Not Available Not Available Not Available gabapenti n 100 mg capsule active Not Available Not Available Not Available clobetaso l 0.05 % topical ointment APPLY TOPICALL Y TWICE A DAY active Not Available Not Available No t Available azelastin e 137 mcg (0.1 %) nasal spray SPRAY 2 SPRAY(S) 2 TIMES A DAY IN EACH NOSTRIL active Not Available Not Available No t Available Cheratuss in AC 10 mg-100 mg/5 mL oral liquid active Not Available Not Available Not Available polyethyl anita glycol 3350 17 gram/dose oral powder MIX ENTIRE BOTTLE W/ 64-OZ OF A CLEAR LIQUID. TAKE DIRECTED BY FOR COLONOSC OPY PREP. 05/24 completed Not Available Not Available Not Available levofloxa melani 500 mg tablet Take 1 tablet every 24 hours by oral route. active Not Available Not Available No t Available estradiol 0.01% (0.1 mg/gram) vaginal cream INSERT 1 GRAM VAGINALL Y 2 X DAILY FOR 4 WEEKS active Not Available Not Available No t Available methylpre dnisolone 4 mg tablets in a dose pack TAKE 6 TABLETS ON DAY 1 DIRECTED ON PACKAGE AND DECREASE BY 1 TAB EACH DAY FOR A TOTAL OF 6 DAYS 02/26 completed Not Available Not Available Not Available clobetaso l 0.05 % scalp solution APPLY TO THE AFFECTED SCALP AREA BY TOPICAL ROUTE 2 TIMES PER DAY IN THE MORNING AND EVENING pRN active Not Available Not Available No t Available fluticaso ne propionat e 50 mcg/actua tion nasal spray,farida pension INSTIL 1 SPRAY INTO EACH NOSTRIL EVERY DAY active Not Available Not Available No t Available metformin ER 500 mg tablet,ex tended release 24 hr TAKE 2 TABLET(S ) EVERY DAY BY ORAL ROUTE AT DINNER. 06/15 completed Not Available Not Available Not Available doxycycli ne hyclate 100 mg tablet TAKE 1 TABLET BY MOUTH TWICE A DAY 05/24 completed Not Available Not Available Not Available Lotemax 0.5 % eye drops,farida pension 10/30 completed Not Available Not Available Not Available tobramyci n 0.3 %-dexamet hasone 0.1 % eye drops,farida pension active Not Available Not Available Not Available esomepraz ole magnesium 20 mg capsule,d elayed release TAKE 1 CAPSULE BY MOUTH DAILY 08/28 completed Not Available Not Available Not Available atomoxeti ne 40 mg capsule TAKE 1 CAPSULE BY MOUTH EVERY DAY IN THE MORNING 06/09 completed Not Available Not Available Not Available Restasis 0.05 % eye drops in a dropperet te Instill by ophthalm ic route as needed for 30 days. 11/18 completed Not Available Not Available Not Available cholestyr amine (with sugar) 4 gram powder for susp in a packet active Not Available Not Available Not Available bupropion HCl XL 300 mg 24 hr tablet, extended release TAKE 1 TABLET BY MOUTH EVERY DAY active Not Available Not Available No t Available Wellbutri n XL 150 mg 24 hr tablet, extended release Take 1 tablet every day by oral route. active Not Available Not Available No t Available hydrocodo ne 7.5 mg-acetam inophen 325 mg/15 mL oral solution active Not Available Not Available Not Available topiramat e 50 mg tablet TAKE 1 TABLET BY MOUTH TWICE A DAY 10/30 completed Not Available Not Available Not Available duloxetin e 30 mg capsule,d elayed release Take 1 capsule every day by oral route. active Not Available Not Available No t Available duloxetin e 60 mg capsule,d elayed release Take 1 capsule every day by oral route. active Not Available Not Available No t Available Mucinex DM 30 mg-600 mg tablet,ex tended release 12 hr TAKE 1 TABLET(S ) EVERY 12 HOURS BY ORAL ROUTE FOR 10 DAYS. active Not Available Not Available No t Available tizanidin e 6 mg capsule Take 1 capsule every day by oral route at bedtime. 09/25 completed Not Available Not Available Not Available One-A-Day Womens Formula one daily 2021 active Not Available Not Available Not Avai lable Sudafed 2012 active Not Available Not Available Not Avai lable Astelin one spray in each nostril daily 2021 active Not Available Not Available Not Avai lable hydrocodo ne 5 mg-acetam inophen 300 mg tablet active Not Available Not Available Not Available dexmethyl phenidate ER 15 mg capsule,e xtended release biphasic5 0-50 Take 1 capsule every day by oral route in the morning. 08/28 completed Not Available Not Available Not Available Vyvanse 30 mg capsule TAKE 1 CAPSULE BY MOUTH EVERY DAY IN THE MORNING 04/30 completed Not Available Not Available Not Available NovoTwist 32 gauge x 1/5 needle 04/11 completed Not Available Not Available Not Available Victoza 2-Yash 0.6 mg/0.1 mL (18 mg/3 mL) subcutane ous pen injector inject 0.6mg SQ daily x 7days, then increase to 1.2mg SQ daily after 10/30 completed Not Available Not Available Not Available Lotemax 0.5 % eye gel drops 03/25 completed Not Available Not Available Not Available Xigduo XR 5 mg-1,000 mg tablet,ex tended release Take 1 tablet every day by oral route. 03/24 completed Not Available Not Available Not Available Rexulti 1 mg tablet TAKE 1 TABLET BY MOUTH DAILY FOR 1 WEEK 04/11 completed Not Available Not Available Not Available Rexulti 2 mg tablet TAKE 1 TABLET BY MOUTH EVERY DAY 04/11 completed Not Available Not Available Not Available Xiidra 5 % eye drops in a dropperet te APPLY 1 DROP INTO BOTH EYES TWICE A DAY 10/30 completed Not Available Not Available Not Available Bydureon BCise 2 mg/0.85 mL subcutane ous auto-inje ctor INJECT 2MG SUB-Q ONCE WEEKLY NEEDED 06/15 completed Not Available Not Available Not Available Ozempic 0.25 mg or 0.5 mg (2 mg/1.5 mL) subcutane ous pen injector INJECT 0.25MG BY SUB Q FOR 4 WEEKS, THEN INCREASE TO 0.5MG ONCE WEEKLY FOR 4 WEEKS 04/11 completed Not Available Not Available Not Available MegaRed Advanced 4-in-1 339 mg-314 mg-500 mg capsule Take 1 capsule every day by oral route. 2021 active Not Available Not Available Not Avai lable Eysuvis 0.25 % eye drops,farida pension APPLY 1 DROP INTO AFFECTED EYE FOUR TIMES A DAY SHAKE BEFORE USE 04/11 completed Not Available Not Available Not Available Wegovy 0.25 mg/0.5 mL subcutane ous pen injector Inject by subcutan eous route. 06/09 completed Not Available Not Available Not Available Mounjaro 7.5 mg/0.5 mL subcutane ous pen injector Inject 7.5 mg every week by subcutan eous route. 2022 active Not Available Not Available Not Avai lable Mounjaro 5 mg/0.5 mL subcutane ous pen injector INJECT 5 MG EVERY WEEK BY SUBCUTAN EOUS ROUTE DIRECTED . 06/09 completed Not Available Not Available Not Available Vitals Date Recorded Body mass index (BMI) Body height Oxygen saturation Oxygen saturation in Arterial blood by Pulse oximetry Heart rate Body temperature Body weight Systolic blood pressure Diastolic blood pressure Provider Name and Address Organization Details Last Updated DateTime 2 49.9 kg/m2 154.94 cm 97 % 97 % 85 /min 97.3 [degF] 042893. 39 g 128 mm[Hg] 84 mm[Hg] Not Available [facility] 3 02:41:04 Date Recorded Body mass index (BMI) Body height Oxygen saturation Oxygen saturation in Arterial blood by Pulse oximetry Heart rate Body temperature Body weight Systolic blood pressure Diastolic blood pressure Provider Name and Address Organization Details Last Updated DateTime 3 45.3 kg/m2 154.94 cm 98 % 98 % 86 /min 97.4 [degF] 522380. 17 g 126 mm[Hg] 82 mm[Hg] Not Available [facility] 3 02:41:04 Date Recorded Body height Oxygen saturation Oxygen saturation in Arterial blood by Pulse oximetry Heart rate Respiratory rate Body temperature Systolic blood pressure Diastolic blood pressure Provider Name and Address Organization Details Last Updated DateTime 2 154.94 cm 98 % 98 % 88 /min 16 /min 97.2 [degF] 120 mm[Hg] 80 mm[Hg] Not Available [facility] 02:41:04 Date Recorded Body height Body weight Body temperature Heart rate Oxygen saturation Oxygen saturation in Arterial blood by Pulse oximetry Systolic blood pressure Diastolic blood pressure Provider Name and Address Organization Details Last Updated DateTime 3 154.94 cm 808432. 65 g 98.4 [degF] 86 /min 98 % 98 % 136 mm[Hg] 82 mm[Hg] [facility] 16:36:55 Date Recorded Body mass index (BMI) Provider Name and Address Organization Details Last Updated DateTime 03/25/2023 43.3 kg/m2 CARTER Gilbert [address] [place] [address], [address], Entrec 03/25/2023 16:39:28 Date Recorded Body height Body mass index (BMI) Body weight Body temperature Heart rate Oxygen saturation Oxygen saturation in Arterial blood by Pulse oximetry Systolic blood pressure Diastolic blood pressure Provider Name and Address Organization Details Last Updated DateTime 3 154.94 cm 41.6 kg/m2 22866.3 2 g 98 [degF] 83 /min 96 % 96 % 124 mm[Hg] 80 mm[Hg] Kimberly Andujar RN [facility] [employer] 16:36:38 Date Recorded Systolic blood pressure Diastolic blood pressure Provider Name and Address Organization Details Last Updated DateTime 06/09/2023 120 mm[Hg] 80 mm[Hg] CARTER Gilbert [address], [facility] [address], [place], [address], [place] [employer] [facility] [employer] 06/09/2023 16:59:21 Social History Question Answer Notes LastModified by Organizat ion Details LastModified Time Tobacco Smoking Status Former Smoker Kimbrely Andujar RN null, [place] [employer] [facility] [employer] 03/25/2023 16:30:53 What Is Your Level Of Alcohol Consumption? Occasional [id number] Information not available 10/01/2022 What Is Your Level Of Caffeine Consumption? Moderate [id number] Information not available 10/01/2022 In The 14 Days Before Symptom Onset, Have You Had Close Contact With A Laboratory-confi rmed COVID-19 While That Case Was Ill? No [email or web address] Information not available 03/25/2023 In The 14 Days Before Symptom Onset, Have You Had Close Contact With A Person Who Is Under Investigation For COVID-19 While That Person Was Ill? No [email or web address] Information not available 03/25/2023 Are You Currently Employed? Yes [email or web address] Information not available 03/25/2023 What Type Of Diet Are You Following? REGULAR [email or web address] Information not available 03/24/2023 Which Illicit Or Recreational Drugs Have You Used? Marijuana Occasional [email or web address] Information not available 03/25/2023 Do You Or Have You Ever Used E-cigarettes Or Vape? 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 No [email or web address] Information not available 03/25/2023 Do You Use Insect Repellent Routinely? No [email or web address] Information not available 03/25/2023 What Is Your Current Pack Years? 10-19packyear s [email or web address] Information not available 03/25/2023 Have You Ever Been Counseled For Unhealthy Alcohol Use? No [email or web address] Information not available 03/25/2023 Do You Use Your Seat Belt Or Car Seat Routinely? Yes Information not available 03/25/2023 Do You Have Smoke And Carbon Monoxide Detectors In Your Home? Yes [email or web address] Information not available 03/25/2023 At What Age Did You Start Smoking Tobacco? 17 [email or web address] Information not available 03/25/2023 Do You Use Any Illicit Or Recreational Drugs? No [email or web address] Information not available 03/25/2023 Do You Use Sunscreen Routinely? Yes [email or web address] Information not available 03/25/2023 Has Tobacco Cessation Counseling Been Provided? No [email or web address] Information not available 03/25/2023 How Many Years Have You Smoked Tobacco? 15 [email or web address] Information not available 03/25/2023 Have You Recently Traveled Abroad? No [email or web address] Information not available 03/25/2023 Do You Have Any Dietary Restrictions? No Information not available 03/25/2023 Do You Or Have You Ever Used Any Other Forms Of Tobacco Or Nicotine? No [email or web address] Information not available 03/25/2023 Sex: Unknown Functional Status Question Answer Note LastModified by Caringo ion Details LastModified Time What is your exercise level? None [id number] Information not available 10/01/2022 Mental Status None recorded. Family History Relationship Description Onset Age of this Age Resolved Age Notes LastModified by Organization Details LastModified Time Paternal Grandmother Cerebrovascu lar accident [email or web address] Not available 03/25/2023 16:30:50 Father Hypertensive disorder [id number] Not available 10/01/2022 02:37:44 Father Diabetes mellitus [id number] Not available 10/01/2022 02:37:45 Sister Hypertensive disorder [id number] Not available 10/01/2022 02:37:45 Notes:maternal cousin - christoph khan cancer Medical History Condition Response ARTHRITIS Y HEADACHES/MIGRAINES Y VARICOSITIES Y ANXIETY DISORDER Y SKIN PROBLEMS Y DIABETES, TYPE Y FEMALE PROBLEMS / INFECTIONS DEPRESSION (INCLUDING POST ) Y Gynecological History Statement/Question Response Abnormal Pap Y Date of Last Colonoscopy 01/04/2018 Date of LMP 07/13/2020 Menses Monthly N Date of Last Pap Smear 10/30/2020 Current Control Method None Age at Menarche 12 Most Recent Mammogram 12/04/2020 Obstetrics History GPAL:G 0 P 0 0 0 0 Immunizations Vaccine Type Date Status Note Provider Nam e and Address Organization Details Recorded Time influenza, unspecified formulation 6 completed Not Available [facility] 08/24/2023 14:23:44 Tdap 8 completed Not Available [facility] 08/24/2023 14:23:44 Influenza, split virus, quadrivalent, preservative 5 completed Not Available [facility] 08/24/2023 14:23:44 Influenza, split virus, quadrivalent, PF 8 completed Not Available [facility] 08/24/2023 14:23:44 Past Encounters Encounter ID Performer Location Encounter Start Date Encounter Closed Date Diagnosis/Indication Diagnosis SNOMED-CT Code Diagnosis ICD10 Code [id number] _FE_M IGRATION_ DEFAULT_1 _1 , 10/30/2020 00:00:00 10/30/2020 19:07:57 [id number] [facility] [address] [place] [address] 02/26/2021 00:00:00 02/27/2021 00:03:00 [id number] [facility] [address] [place] [address] 04/11/2022 00:00:00 05/01/2022 22:22:08 [id number] [facility] [address] [place] [address] 05/12/2022 00:00:00 05/28/2022 14:07:30 [id number] [facility] [address] [place] [address] 09/30/2022 00:00:00 09/30/2022 13:06:59 [id number] CARTER Gilbert [facility] [address] [place] [address] 03/25/2023 16:30:18 03/25/2023 17:17:39 Well controlled type 2 diabetes mellitus 626466647 E11.9 Recurrent major depressive episodes 842486560 F33.9 Obstructiv e sleep apnea syndrome 40290767 G47.33 Hyperlipidemia 17438402 E78.5 Long-term drug therapy 580175367 Z79.899 Ulcer of nose 57658888 J 34.0 Constipation 87060439 K5 9.00 Attention deficit hyperactivity disorder 795785626 F90.9 [id number] CARTER Gilbert [facility] [address] [place] [address] 06/09/2023 16:32:15 06/09/2023 17:01:12 Attention deficit hyperactivity disorder 316111280 F90.9 Well contr olled type 2 diabetes mellitus 828228531 E11.9 Depressive disorder 3548 9007 F32.A Ulcer of nose 62520077 J 34.0 Health Concerns Section Related Observation LastModified by Organization Detai ls LastModified Time None Recorded Concern Status LastModified by Organization Details LastModified Time None Recorded Advance Directives Directive None Recorded Payers Encounter Date Sequence Insurance Name Policy Number Policy [employer] Covered Member ID [employer] Member ID Guarantor Name 03/25/2023 1 [employer] - CHO[employer] (POS II) [id number] Nirav Glez [id number] Gilda Glez 06/09/2023 1 [facility] (POS) [id number] Gilda Glez [id number] Gilda Glez Notes Date Note Type Note Provider Name and Address Organization Details Recorded Time 04/11/20 22 text/htm l DiabetesReported bypatient.Notes:diet controlled.HyperlipidemiaRepor guevara bypatient.Notes:on statin therapy Not Available [facility] [employer] [facility] 05/01/2022 22:22:08 05/12/20 22 text/htm l Obstructive Sleep Apnea F/UReported bypatient.Quality:no witnessed apnea; no hyponasal speech; no frequent breathing through the mouth;loud snoring;gasping for air Onset/Timing:chronic Duration:resolved Severity:does not limit daily activities; no frequent sore throats resulting in excess missed days from school / work per year; no difficulty getting going in the morning; no awakening in the middle of the night with sore throat Location:no enlarged tonsils; no nasal passage blockage; no throat pain; no feeling of tightness in throat; no chest congestion;dryness of mouth Context:no lack of adequate sleep; no shift work; not currently taking medication to help sleep; no recent weight gain; no recent upper respiratory infection; no recent sick contacts; not worse with environmental exposure; not worse with seasonal allergen exposure; no hypertension; normal sleep hours Alleviating factors:relief with CPAP; but needs a new order for one Aggravating factors:not worse during an upper respiratory infection (a cold); not worse when allergies are active Associated Symptoms:no morning headache; no awakening at night short of breath; no sweating heavily at night; no excessive sleepiness during the day; no suddenly falling asleep during the day; no napping; no impaired work performace; no nasal congestionNotes:pt needs new updated cpap machine. other not functioning well. diagnosed many years ago. Cpap use for 6 years. Due to recall the machine she had 5.5 years is not usable, and she has a replacement cpap that is leaking and horrible. She wants a new machine [employer]. Not Available Entrec 05/28/2022 14:07:30 09/30/19 23 text/htm l Sinusitis/AllergyReported bypatient.Quality:congested;pr oductive cough Severity:limits daily activities;frequent breathing through the mouth Onset/Timing:initially started 2weeks ago Context:worse with seasonal allergen exposure Alleviating factors:nothing gives relief Aggravating factors:worse with damp weather Associated Symptoms:no nasal passage blockage;nasal discharge from nostrils;headache forehead;facial pain bilaterally;thick phlegm in throat;constantly clearing the throat;ear fullness Not Available Entrec 09/30/2022 13:06:59 03/25/20 23 text/htm l DepressionReported bypatient.Notes:stable on wellbutrin and duloxetine but focus and concentration is very problematic still and has yet to improve on medication. she would like screening for attention problems.DiabetesReported bypatient.Notes:stable. due for labsHyperlipidemiaReported bypatient.Control:usually well controlled; improving; at goal Compliance:compliant; compliant with diet; exercises Complications:no coronary artery disease; no peripheral artery disease; no cardiovascular diseaseObstructive Sleep ApneaReported bypatient.Notes:stable on cpap CARTER Gilbert [address], [address], [place], [address], Entrec 04/01/2023 22:26:00 06/09/20 23 text/htm l Adult ADHDReported bypatient.ADHD Quality:unable to concentrate;impulsive Timing of Symptoms:chronic; constant ADHD Duration:age of onset lifelong ADHD Context:lack of productivity at work;increased anxiety;increased depression ADHD Severity:severe ADHD Associated Symptoms Inattention:unable to pay attention;poorly organized;makes careless mistakes;easily distracted;no attention to detail;forgetful;difficulty focusing;bored easily;daydreaming;difficulty processing information;difficulty following instructions ADHD Associated Symptoms Impulsivity:shows emotion with restraint;impatient;interrupts conversations/activities ADHD Associated Symptoms Hyperactivity:fidgets/squirms; difficulty with quiet tasks/activitiesDepressionRepo rted bypatient.Notes:stable on wellbutrin and duloxetine but focus and concentration is very problematic still and has yet to improve on medication. she would like screening for attention problems. 4 week f/u CARTER Gilbert [address], [facility] [address], [place], [address], Entrec 07/01/2023 14:20:28 OBGyn Episode No OBEpisode recorded.
--- OUTSIDE RECORDS SUMMARY | 2024-08-02 01:28 | XMS_ITS | Data Portability ---
Author Organization [facility] LAYOAdelaida Address [address] [place] [address] Assessment No assessment recorded. Plan of Treatment Reminders Order Date Submit Date Provider Last Modified By Organization Details Last Modified Time Details Appointments ANY 15 2024 03:30P M CARTER Gilbert Not available Not available Not available Lab vitamin B12 + folate, serum or blood 2023 024 [email or web address], [address], [place], [address], 05/18/2024 09:46:31 CBC w/ auto diff 2023 024 [email or web address] [facility], [address], [place], [address], 05/18/2024 09:46:26 CMP, serum or plasma 2023 024 [email or web address], [address], [place], [address], 05/18/2024 09:46:21 TSH + free T4, serum 2023 024 [email or web address], [address], [place], [address], 05/18/2024 09:46:15 lipid panel, serum 2023 024 [email or web address], [address], [place], [address], 05/18/2024 09:47:20 HbA1c (hemoglob in A1c), blood 2023 [facility], [address], [place], [address], 05/18/2024 09:47:10 microalbu min/creat inine, mass ratio, urine 2023 [facility], [address], [address], [place], [address], 05/18/2024 09:47:15 erythrocy te sedimenta tion rate by westergre n method 2023 [facility], [address], [address], [place], [address], 05/18/2024 09:47:04 C-reactiv e protein, quantitat festus, serum or plasma 2023 [facility], [address], [address], [place], [address], 05/18/2024 09:47:00 rf (rheumato id factor), serum 2023 [email or web address], [address], [address], [place], [address], 05/18/2024 09:46:54 CHRISTOPHER (antinucl ear antibodie s) screen, serum 2023 [email or web address], [address], [address], [place], [address], 05/18/2024 09:46:48 ccp (cyclic citrullin ated peptide) igg, serum 2023 [email or web address], [address], [address], [place], [address], 05/18/2024 09:46:43 uric acid, serum or plasma 2023 024 [email or web address] [facility], [address], [place], [address], 05/18/2024 09:46:37 Referral orthopedi c surgeon referral 2023 [facility], [address], [address], [place], [address], 04/06/2024 18:07:44 Procedures polysomno graphy, titration study (PROC) [address] [facility] ([facility]), [address] [place], [address], 03/19/2024 02:41:38 Surgeries None recorded. Imaging None recorded. Medication Orders pantopraz ole 40 mg tablet,de layed release 2023 024 [place] [facility], [address], [address], [place], [place], [id number], 01/11/2024 18:05:31 Patient TargetsNo targets recorded. Patient Instructions Encounter Date Encounter Id Patient Instructions Last Modified By Organization Details Last Modified Time 01/11/2024 [id number] A healthy lifestyle: care instructions [email or web address] Not available 01/31/2024 20:04:21 mask fitting* - pt needs new mask with fitting. she really should not need another study since last was 2019. [email or web address] Not available 06/10/2024 13:41:58 Reason for Referral Orthopedic Surgeon Referral for Pain in right hip joint Referring Physician: Adriana Baker, Internal Medicine, Encounter Date: 01/11/2024 Results Created Date Observation Date Name Description Value Unit Range Abnormal Flag Note LastModifiedBy Organization Detail LastModifiedTime 02/22/20 24 02/22/2024 MAMMO , erin kong bilcamryn daiglel No observ ation record ed. [email or web address] [facility] [address], [place], [address], 02/23/2024 18:18:36 Result Notes None recorded. Problems Name Problem SNOMED Code Status Onset Date Resolution Date Notes Provider Name and Address Organization Details Recorded Time Obstructive sleep apnea syndrome 98118994 Active 2023 CARTER Gilbert Attn: Accountin g,[address] [facility], [place], [address], [place] [facility] 4 20:00:02 Menopause present 600092191 Active 2023 CARTER Gilbert Attn: Accountin g,[address] [facility], [place], [address], [place] [facility] 4 20:00:03 Hyperlipidemia 80819556 Active 2023 CARTER Gilbert Attn: Accountin g,[address] [facility], [place], [address], [place] [facility] 4 20:00:04 Well controlled type 2 diabetes mellitus 163344643 Active 2023 CARTER Gilbert Attn: Accountin g,[address] [facility], [place], [address], [place] [facility] 4 20:00:06 Long-term drug therapy Active 2023 CARTER Gilbert Attn: Accountin g,[address] [facility], [place], [address], [place] [facility] 4 20:00:31 Gastroesophage al reflux disease without esophagitis 581653802 Active 2023 CARTER Gilbert Attn: Accountin g,[address] [facility], [place], [address], [place] [facility] 4 20:01:04 Multiple joint pain 97278874 Active 2023 CARTER Gilbert Attn: Accountin g,[address] [facility], [place], [address], [place] [facility] 4 20:01:15 Obesity 949915726 Active 2023 CARTER Gilbert Attn: Miguelangel eduardo,[address] [facility], [place], [address], [facility] - SI 4 20:04:16 Body mass index 40+ - severely obese 510269546 Active 2023 CARTER Gilbert Attn: Miguelagnel eduardo,[address] [facility], [place], [address], [place] - [facility] 4 20:04:17 Problem Notes None recorded. Procedures Surgical History Date Name Laterality Status Provider Name and Address Organization Details Recorded Time Cholecystectomy completed Carla hooper MA [facility] 01/11/2024 17:27:39 procedure on foot completed Carla Garcia MA [place] - [facility] 01/11/2024 17:27:56 procedure on foot completed Carla Garcia MA [place] - [facility] 01/11/2024 17:27:57 procedure on foot completed Carla Garcia MA [place] [facility] 01/11/2024 17:27:58 Dilation and Curettage completed Carla Garcia MA [place] [facility] 01/11/2024 17:28:37 LEEP completed Carla Garcia MA [facility] 01/11/2024 17:28:42 Imaging Results Imaging Date Name Status LastModified by Organiz ation Details LastModified Time 02/22/2024 MAMMO, screening, bilateral completed [email or web address] [facility] [address], [place], [address], 02/23/2024 18:18:36 Procedure Notes None recorded. Medical Equipment None Reported. Allergies Allergen ID Allergen Name Allergen Category Reaction Reaction Severity Criticality Documentation Date Start Date Code Code System Note Provider Name and Address Organization Details Recorded Time 517356 cephalogl ycin Not available Not available Not available Not available 01/11/2024 FRIDA Koehler [place] [facility] 17:20:19 Medications Name Sig Start Date Stop Date Status Note LastModified by Organization Details LastModified Time atorvasta tin 20 mg tablet TAKE 1 TABLET BY MOUTH ONCE DAILY 2023 active Not Available Not Available Not Avai lable azithromy melani 250 mg tablet TAKE 2 TABLETS (500 MG) BY ORAL ROUTE ONCE DAILY FOR 1 DAY THEN 1 TABLET (250 MG) BY ORAL ROUTE ONCE DAILY FOR 4 DAYS 01/10 completed Patient stated she is done with this medicati on. Not Available Not Available Not Available famotidin e 40 mg tablet TAKE 1 TABLET BY MOUTH EVERY DAY AT DINNER active Not Available Not Available No t Available estradiol -norethin drone acet 1 mg-0.5 mg tablet active Not Available Not Available Not Available lamotrigi ne 25 mg tablet Take 1 tablet every day by oral route at bedtime. active Not Available Not Available No t Available pantopraz ole 20 mg tablet,de layed release 01/10 completed Not Available Not Available Not Available alprazola m 0.5 mg tablet TAKE HALF A TAB TO ONE TAB TWICE A DAY NEEDED active Not Available Not Available No t Available estradiol 1 mg tablet active Not Available Not Available Not Available pantopraz ole 40 mg tablet,de layed release Take 1 tablet every day by oral route. active Not Available Not Available No t Available fluoromet holone 0.1 % eye drops,farida pension active Not Available Not Available Not Available progester one micronize d 200 mg capsule active Not Available Not Available Not Available docusate sodium 100 mg capsule TAKE 1 CAPSULE BY MOUTH EVERY DAY active Not Available Not Available No t Available monteluka st 10 mg tablet TAKE 1 TABLET BY MOUTH IN THE MORNING 2023 active Not Available Not Available Not Avai lable mupirocin 2 % topical ointment USE DIRECTED 3 TIMES A DAY IN NASAL REGION active Not Available Not Available No t Available clobetaso l 0.05 % topical ointment APPLY TOPICALL Y TWICE A DAY 01/10 completed Patient stated she is done with this medicati on. Not Available Not Available Not Available estradiol 0.01% (0.1 mg/gram) vaginal cream INSERT 1 GRAM VAGINALL Y 2 X DAILY FOR 4 WEEKS active Not Available Not Available No t Available atomoxeti ne 40 mg capsule TAKE 1 CAPSULE BY MOUTH EVERY DAY IN THE MORNING 01/10 completed Not Available Not Available Not Available bupropion HCl XL 300 mg 24 hr tablet, extended release TAKE 1 TABLET BY MOUTH DAILY active Not Available Not Available No t Available duloxetin e 30 mg capsule,d elayed release TAKE 1 CAPSULE BY MOUTH DAILY 2023 active Not Available Not Available Not Avai lable duloxetin e 60 mg capsule,d elayed release TAKE 1 CAPSULE BY MOUTH DAILY 2023 active Not Available Not Available Not Avai lable Vyvanse 30 mg capsule TAKE 1 CAPSULE BY MOUTH EVERY DAY IN THE MORNING 01/10 completed Not Available Not Available Not Available Mounjaro 7.5 mg/0.5 mL subcutane ous pen injector INJECT 7.5 MG SUBCUTAN EOUSLY WEEKLY 01/10 completed Patient stated she is done with this medicati on. Insuranc e didn't cover it Not Available Not Available Not Available Mounjaro 5 mg/0.5 mL subcutane ous pen injector INJECT 5 MG EVERY WEEK BY SUBCUTAN EOUS ROUTE DIRECTED . 01/10 completed Patient stated she is done with this medicati on. Insuranc e didn't cover it Not Available Not Available Not Available Vitals Date Recorded Body weight Body mass index (BMI) Body height Heart rate Oxygen saturation Oxygen saturation in Arterial blood by Pulse oximetry Systolic blood pressure Diastolic blood pressure Provider Name and Address Organization Details Last Updated DateTime 4 315480. 1 g 43.4 kg/m2 156.21 cm 82 /min 99 % 99 % 132 mm[Hg] 80 mm[Hg] Carla Garcia MA [facility] 17:31:51 Social History Question Answer Notes LastModified by Organizat ion Details LastModified Time Tobacco Smoking Status Former Smoker Carla Garcia MA [facility], [facility] 01/11/2024 17:25:14 Do You Have An Advance Directive? No Information not available 01/11/2024 What Is Your Level Of Alcohol Consumption? Occasional Information not available 01/11/2024 How Many Years Have You Consumed Alcohol? 20 Information not available 01/11/2024 Are You Blind Or Do You Have Difficulty Seeing? No Glasses Information not available 01/11/2024 What Is Your Level Of Caffeine Consumption? Heavy Information not available 01/11/2024 In The 14 Days Before Symptom Onset, Have You Had Close Contact With A Laboratory-confir med COVID-19 While That Case Was Ill? No Information not available 01/11/2024 In The 14 Days Before Symptom Onset, Have You Had Close Contact With A Person Who Is Under Investigation For COVID-19 While That Person Was Ill? No Information not available 01/11/2024 Have You Been To An Area Known To Be High Risk For COVID-19? No Information not available 01/11/2024 Are You Currently Employed? Yes Information not available 01/11/2024 Are You Deaf Or Do You Have Serious Difficulty Hearing? No Information not available 01/11/2024 What Type Of Diet Are You Following? 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 No Information not available 01/11/2024 What Was The Date Of Your Most Recent Tobacco Screening? 01/11/2024 Information not available 01/11/2024 What Is Your Current Pack Years? 10packyears Information not available 01/11/2024 What Is Your Relationship Status? Information not available 01/11/2024 Do You Use Your Seat Belt Or Car Seat Routinely? Yes Information not available 01/11/2024 Do You Have Smoke And Carbon Monoxide Detectors In Your Home? Yes Information not available 01/11/2024 How Much Tobacco Do You Smoke? 0.5 PPD Information not available 01/11/2024 Do You Feel Stressed (tense, Restless, Nervous, Or Anxious, Or Unable To Sleep At Night)? [id number] Information not available 01/11/2024 Do You Use Any Illicit Or Recreational Drugs? No Information not available 01/11/2024 Do You Use Sunscreen Routinely? Yes Information not available 01/11/2024 Has Tobacco Cessation Counseling Been Provided? No Information not available 01/11/2024 How Many Years Have You Smoked Tobacco? 18 Information not available 01/11/2024 Do You Or Have You Ever Used Any Other Forms Of Tobacco Or Nicotine? No Information not available 01/11/2024 Sex: Female Functional Status Question Answer Note LastModified by Organization D etails LastModified Time Are you able to care for yourself? Yes Information n ot available 01/11/2024 What is your exercise level? None Information not available 01/11/2024 Mental Status None recorded. Family History Relationship Description Onset Age of this Age Resolved Age Notes LastModified by Organization Details LastModified Time Mother Depressive disorder mebyma Not available 2023 17:23:40 Mother Hypertensive disorder mebyma Not available 2023 17:24:03 Mother Hypercholest erolemia mebyma Not available 2023 17:24:16 Mother Osteoporosis mebyma Not availab le 01/11/2024 17:24:26 Sister Depressive disorder mebyma Not available 2023 17:23:40 Sister Heart disease mebyma Not available 2023 17:23:54 Sister Hypertensive disorder mebyma Not available 2023 17:24:03 Sister Hypercholest erolemia mebyma Not available 2023 17:24:16 Father Diabetes mellitus mebyma Not available 2023 17:23:46 Father Hypertensive disorder mebyma Not available 2023 17:24:03 Father Hypercholest erolemia mebyma Not available 2023 17:24:16 Father Malignant tumor of prostate mebyma Not available 2023 17:24:33 Medical History Condition Response Anxiety Disorder Y Muscle, Joint, or Bone Problems Y Skin Problems Y High Cholesterol Y Acid Reflux (GERD) Y Depression Y Allergies Y Gynecological History Statement/Question Response If Post Menopausal, Age at Menopause 44 Date of LMP Obstetrics History GPAL:G 0 P 0 0 0 0 Immunizations Vaccine Type Date Status Note Provider Nam e and Address Organization Details Recorded Time Influenza, MDCK, quadrivalent, PF 05/17/2022 completed Kimberli Wil[place], [place] [facility] 05/13/2024 15:28:28 Influenza, MDCK, quadrivalent, PF 07/29/2019 lorrie Wilde [place], [place] [facility] 05/13/2024 15:28:28 COVID-19 vaccine, vector-nr, rS-Ad26, PF, 0.5 mL 11/08/2020 [place] FR[place] [facility] 05/13/2024 15:28:28 influenza, unspecified formulation 05/02/2013 [place] FR[place] [facility] 05/13/2024 15:28:28 influenza, unspecified formulation 05/14/2012 [place] FR[place] [facility] 05/13/2024 15:28:28 influenza, unspecified formulation 06/06/2014 [place] FR[place] [facility] 05/13/2024 15:28:28 Influenza, split virus, quadrivalent, PF 06/19/2020 [place] FR[place] [facility] 05/13/2024 15:28:28 Past Encounters Encounter ID Performer Location Encounter Start Date Encounter Closed Date Diagnosis/Indication Diagnosis SNOMED-CT Code Diagnosis ICD10 Code [id number] CARTER Gilbert [facility] [place] [address] [place] [address] 01/11/2024 17:02:58 01/11/2024 18:06:37 Menopause present 257080281 N95.1 Obstructiv e sleep apnea syndrome 45973753 G47.33 Hyperlipidemia 48839566 E78.5 Well contr olled type 2 diabetes mellitus 462745686 E11.9 Multiple joint pain 3567 8005 M25.50 Long-term drug therapy 817512883 Z79.899 Pain in ri ght hip joint 0509848116 99400 M25.551 Gastroesop hageal reflux disease without esophagitis 732979920 K21.9 Body mass index 40+ - severely obese 797781418 Z68.41 Obesity 689045782 E66.8 Health Concerns Section Related Observation LastModified by Organization Detai ls LastModified Time None Recorded Concern Status LastModified by Organization Details LastModified Time None Recorded Advance Directives Directive N: Payers Encounter Date Sequence Insurance Name Policy Number Policy [employer] Covered Member ID [employer] Member ID Guarantor Name 01/11/2024 1 [facility] [id number] Gilda Glez [id number] Gilda Glez Notes Date Note Type Note Provider Name and Address Organization Details Recorded Time 01/11/2024 text/html Anxiety/Depressi onRep orted bypatient.Notes:stabl e on wellbutrin XL 300mg daily and duloxetine 90mg daily.DiabetesReporte d bypatient.Notes:dieta ry managed. stable.Hyperlipidemia Reported bypatient.Notes:pt is taking atorvastatin 20mg daily. due for labsObstructive Sleep Apnea F/UReported bypatient.Notes:on cpap , needs new mask fitting. pt needs new sleep study because she needs a new mask, her mask leaks, seal is poor ; she has called [facility] and asked for new mask fittingReflux/GERDRep orted bypatient.Notes:on lower dose PPI therapy. having daily breakthrough of reflux symptoms. CARTER Gilbert Attn: Accounting,[address] [facility], [place], [address], [place] [facility] 01/31/2024 20:04:38 OBGyn Episode No OBEpisode recorded.
--- OUTSIDE RECORDS SUMMARY | 2024-08-02 01:29 | XMS_ITS | Encounter Summary ---
Author Organization [facility] Address [address] [place] [address]. [place] [address] [place] [address] Care Team Providers Care Board Certified Family Physician Name Role Phone Adriana Baker Primary Care Provider [phone] Reason for Visit * Reason Comments Sleep Study (SCAN) Encounter Details Date Type Department Care Team ([facility] Contact Info) Description 01/12/2024 Scan HEALTH INFO SRVCS Scanned, Doc Med Group Sleep Study (SCAN) Social History Tobacco Use Types Packs/Day Years Used Date Smoking Tobacco: Former Cigarettes 0.5 15 1 09/23/1992 - 07/23/2008 Smokeless Tobacco: Never Alcohol Use Standard Drinks/Week Comments Yes 0 (1 standard drink = 0.6 oz pur e alcohol) socially Comments No Sex and Gender Information Value Date Recorded Sex Assigned at Not on file Legal Sex Female 1:38 PM CDT Gender Identity Not on file Sexual Orientation Not on file documented as of this encounter Plan of Treatment Not on file documented as of this encounter Procedures Procedure Name Priority Date/Time Associated Diagnosis Comments SLEEP STUDY GENERIC (SCAN ORDER) 01/12/2024 documented in this encounter Results * SLEEP STUDY GENERIC (SCAN ORDER) (01/12/2024) 01/12/2024 us Doc [facility] Scanned SCANNING Final Resu lt documented in this encounter Visit Diagnoses Not on filedocumented in this encounter Care Teams Board Certified Family Physician Relationship Specialty Start Date End Date Adriana Baker PA [address] [place] [address] PCP - General 07/23/18 documented as of this encounter
--- OUTSIDE RECORDS SUMMARY | 2024-08-02 01:29 | XMS_ITS | Encounter Summary ---
Author Organization [facility] Address [address] [place] [address]. [place] [address] [place] [address] Care Team Providers Care Legal Arbitrator Name Role Phone Adriana Baker Primary Care Provider [phone] Encounter Details Date Type Department Care Team (Late st Contact Info) Description 07/23/2018 12:58 PM PIN MACHINE OPERATOR - 07/23/2018 2:15 PM [facility] Hospital Encounter [facility] Pre-Admission Testing [address] [place], [place] [id number] New Referring, Provider Nirav Dotson, DPSophy [address] [place] [address] Discharge Disposition: Home or Self Care (Routine Discharge) Anesthesia Record Procedure Summary Procedure Name Responsible Anesthesiologist Anesthesia Start Time Anesthesia Stop Time PLANTER FASCIITIS RELEASE ENDOSCOPIC LEFT FOOT (Left: Foot) Brandon Ornelas MD 07/30/18 1143 07/30/18 1212 Events No events on file. Meds * Agents No agents on file. * Blood No blood administrations on file. Lines, Drains, and Airways No LDAs on file. documented in this encounter Social History Tobacco Use Types Packs/Day Years [...] on file documented as of this encounter Last Filed Vital Signs Vital Sign Reading Time Taken Comments Blood Pressure 123/64 07/23/2018 1:00 PM PIN MACHINE OPERATOR Pulse 88 07/23/2018 1:00 PM PIN MACHINE OPERATOR Temperature - - Respiratory Rate 18 07/23/2018 1:00 PM PIN MACHINE OPERATOR Oxygen Saturation 100% 07/23/2018 1:00 PM PIN MACHINE OPERATOR Inhaled Oxygen Concentration - - Weight 110.2 kg (243 lb) 07/23/2018 1:00 PM PIN MACHINE OPERATOR Height 156.2 cm (5' 1.5 ) 07/23/2018 1:00 PM PIN MACHINE OPERATOR Body Mass Index 45.17 07/23/2018 1:00 PM PIN MACHINE OPERATOR documented in this encounter Medications at Time of Discharge atorvastatin 20 MG tablet Take 20 mg by mouth daily. azelastine 0.1 % nasal spray 1 spray by Nasal route daily. Use in each nostril as directed buPROPion 24 hr 300 MG 24 hr tablet Take 300 mg by mouth daily. clobetasol 0.05 % external solution Apply 1 Application topically daily. 07/12/2018 duloxetine 60 MG capsule Take 90 mg by mouth daily. fluticasone propionate 50 MCG/ACT nasal spray 1 spray by Nasal route daily. ibuprofen 800 MG tablet Take 800 mg by mouth every 8 (eight) hours as needed for Pain. ketoconazole 2 % shampoo Apply 1 Application topically weekly. 07/24/2017 loteprednol 0.5 % ophthalmic suspension Place 1 drop into both eyes as needed. BYDUREON BCISE 2 MG/0.85ML Auto-injector Inject 1 Dose into the skin weekly. 3 07/12/2018 9 lifitegrast 5 % ophthalmic solution Place 1 Application into both eyes 2 (two) times a day. 07/12/2018 9 metFORMIN 500 MG tablet Take 1,000 mg by mouth daily with breakfast. 9 documented as of this encounter Plan of Treatment Not on file documented as of this encounter Procedures Procedure Name Priority Date/Time Associated Diagnosis Comments BASIC METABOLIC PANEL STAT 07/23/2018 2:00 PM PIN MACHINE OPERATOR Preop examination ECG 12-LEAD Routine 07/23/2018 1:58 PM PIN MACHINE OPERATOR Preop examination documented in this encounter Results * (ABNORMAL) BASIC METABOLIC PANEL (07/23/2018 2:00 PM PIN MACHINE OPERATOR) [facility] GLUCOSE 75 70 - 99 MG/DL 07/23/2018 2:42 PM [facility] BUN 12 7 - 18 MG/DL 07/23/2018 2:42 PM [facility] CREATININE S/P/B 0.89 0.55 - 1.02 MG/DL 07/23/2018 2:42 PM [facility] SODIUM S/P/B 140 136 - 145 MMOL/L 07/23/2018 2:42 PM [facility] POTASSIUM S/P/B 3.8 3.5 - 5.1 MMOL/L 07/23/2018 2:42 PM [facility] CHLORIDE S/P/B 109(H) 100 - 108 MMOL/L 07/23/2018 2:42 PM [facility] CO2 23.8 21 - 32 MMOL/L 07/23/2018 2:42 PM [facility] CALCIUM S/P/B 8.6 8.5 - 10.1 MG/DL 07/23/2018 2:42 PM [facility] ANION GAP 11.0 8 - 20 MMOL/L 07/23/2018 2:42 PM [facility] BUN CREATININE RATIO 13.5 6 - 26 07/23/2018 2:42 PM [facility] EGFR NON-AFR. AMER. 81(L) >90 ML/MIN/1.7 3 M2 07/23/2018 2:42 PM [facility] EGFR AFR. AMER. >90 >90 ML/MIN/1.7 3 M2 07/23/2018 2:42 PM [facility] Comment: NOTE: eGFR is not calculated for patients <18 years of age. This is an estimated GFR (CKD EPI) and should not be used for calculating drug doses. 07/23/2018 2:00 PM PIN MACHINE OPERATOR Filiberto Delarosa ASSISTANT ATTORNEY GENERAL LABORATORY Final Result Performing Organization Address [facility]/State/ZIP Co de Phone Number [facility] [address] [place] [address], * ECG 12 lead (07/23/2018 1:58 PM PIN MACHINE OPERATOR) 07/23/2018 1:58 PM PIN MACHINE OPERATOR Narrative [facility] - 07/23/2018 10:59 PM PIN MACHINE OPERATOR ?[facility] [place] ? [address] [facility] [place] ? Test Date: ?2018-07-23 Pat Name: ? GILDA PAL ? Department: ?? 40 ? Room: ? [facility] Gender: ? Female ? [place] [employer] [place]: ?? [place] : ?1975 ? Requested By: FILIBERTO DELAROSA Order Number: [id number] ? Reading MD: ?? Esteban Epperson ? Measurements Intervals ?[place] ? Rate: ? 83 ? P: ?65 GA: ? 137 ?QRS: ?50 QRSD: ? 85 ? T: ?19 QT: ? 351 ? QTc: ?414 ? Interpretive Statements SINUS RHYTHM MINIMAL ST DEPRESSION No previous ECG available for comparison MACHINE OPERATOR Procedure Note Esteban Epperson MD - 07/23/2018 [facility] [place] [address] [facility] Test Date: 2018-07-23 Pat Name: GILDA DEMARCO Department: 40 Room: [facility] Gender: Female [place]: [place] : 1975 Requested By: FILIBERTO DELAROSA Order Number: [id number] Reading MD: Esteban Epperson Measurements Intervals [place] Rate: 83 P: 65 GA: 137 QRS: 50 QRSD: 85 T: 19 QT: 351 QTc: 414 Interpretive Statements SINUS RHYTHM MINIMAL ST DEPRESSION No previous ECG available for comparison MACHINE OPERATOR us Filiberto Delarosa ASSISTANT ATTORNEY GENERAL ECG ORDERABLES Final Result [facility] documented in this encounter Visit Diagnoses Diagnosis Preop examination- Primary Preoperative examination, unspecified documented in this encounter Care Teams Legal Arbitrator Relationship Specialty Start Date End Date Adriana Baker PA [address] [place] [address] PCP - General 07/23/18 documented as of this encounter
--- OUTSIDE RECORDS SUMMARY | 2024-08-02 01:29 | XMS_ITS | Encounter Summary ---
Author Organization [facility] Address [address] [place] [address]. [place] [address] [place] [address] Care Team Providers Care Arc Air Operator Name Role Phone Adriana Baker Primary Care Provider [phone] Reason for Visit * Auth/Cert Specialty Diagnoses / Procedures Referred By Contac t Referred To Contact Diagnoses PLANTAR FASCIITIS Procedures PLANTER FASCIITIS RELEASE ENDOSCOPIC LEFT FOOT Referral ID Status Reason Start Date Expiration Date Visits Re quested Visits Authorized [id number] 1 1 Encounter Details Date Type Department Care Team (Late st Contact Info) Description 07/30/2018 11:43 AM POLITICAL SCIENCE FACULTY MEMBER Anesthesia Event [facility] [address] Brandon Ornelas MD Barnhart, Lynlee, NP Anesthesia Record Procedure Summary Procedure Name Responsible Anesthesiologist Anesthesia Start Time Anesthesia Stop Time PLANTER FASCIITIS RELEASE ENDOSCOPIC LEFT FOOT (Left: Foot) rBandon Ornelas MD 07/30/18 1143 07/30/18 1212 Events Date Time Event Comment 07/30/2018 1056 1056 AN Anesthesia Prepped 1101 AN DIRECTOR OF CORPORATE SALES Prepped 1143 An Start Patient ID and consent checked and patient reassessed. 1144 An Start Data 1147 Face Mask Applied 1148 An Induction 1150 Anesthesia Ready 1158 An Tourn Inflated 250mmhg 1209 An Tourn Deflated 1210 An Emergence 1212 Face Mask Removed 1212 an stop data 1212 Anes Handoff 1212 An Stop 1216 Post Anesthetic Care Handoff I completed my handoff to the receiving nurse during which we: 1. Identified the patient 2. Identified the responsible provider 3. Reviewed the pertinent medical history 4. Discussed the surgical course 5. Reviewed intra-op anesthesia management and issues during anesthesia 6. Set expectations for post-procedure period 7. Allowed opportunity for questions and acknowledgement of understanding. Meds Name Total midazolam 2 mg/2 mL injection 2 mg fentaNYL (SUBLIMAZE) 100 mcg/2 mL inject ion 100 mcg lidocaine (PF) (XYLOCAINE) 2% injection 100 mg propofol (DIPRIVAN) 200 mg/20 mL injecti on 50 mg propofol (DIPRIVAN) 200 mg/20 mL injecti on 309.45 mg lactated ringers infusion 300 mL * Agents Name O2 N2O Air * Blood No blood administrations on file. Lines, Drains, and Airways Type Details Placement Removal Peripheral IV Placement Date: 07/30/18; Placement Time: 1130; Placed Outside of This Facility?: No; Size: 20 G; Orientation: Left; Location: Hand; Site Prep: Chlorhexidine; Local Anesthetic: None; Inserted By: Christi Vasquez RN; Insertion attempts: 2; Ultrasound-guided Placement?: No; Patient Tolerance: Tolerated well; Removal Date: 07/30/18; Removal Time: 1400; Removal Reason: Patient Discharged 07/30/18 1130 by Christi Vasquez RN 07/30/18 1400 by Jonelle Villanueva RN Surgical/Incision 07/30/18; 1209; Surgical Wound; Foot; Left; DRESSING XEROFORM 1X8, DRESSING SPONGE MEDLINE 4X4, BANDAGE MDHELEN BLK LT COTN; suture,xeroform,4x4,ker lix,surgical boot; 07/30/18; 1629 07/30/18 1209 by All Ryder RN 07/30/18 1629 by Automatic Discharge Provider documented in this encounter Social History Tobacco [...] on file documented as of this encounter OR Notes * Anesthesia Postprocedure Evaluation - Brandon Ornelas MD - 07/30/2018 1:14 PM CST Anesthesia Post-op Note Gilda Glez Procedure(s): PLANTER FASCIITIS RELEASE ENDOSCOPIC LEFT FOOT (Left Foot) Anesthesia type: general Vitals: 07/30/18 1300 BP: 117/76 Vitals: 07/30/18 1300 Pulse: 86 Vitals: 07/30/18 1300 Resp: 14 Vitals: 07/30/18 1300 Temp: 36.2 ??C Vitals: 07/30/18 1300 SpO2: 100% Patient Location: Phase II/Outpatient Level of Consciousness: awake, oriented and alert Pain Management: pain being treated or addressed Airway Patency: patent Respiratory Status: spontaneous ventilation, unassisted and room air Cardiovascular Status: acceptable and hemodynamically stable Post-Op Nausea: none Postoperative Hydration: euvolemic Complications: no anesthesia complication TICAL SCIENCE FACULTY MEMBER * Anesthesia Postprocedure Evaluation - Brandon Ornelas MD - 07/30/2018 1:14 PM CST Anesthesia Post-op Note Gilda Glez Procedure(s): PLANTER FASCIITIS RELEASE ENDOSCOPIC LEFT FOOT (Left Foot) Anesthesia type: general Vitals: 07/30/18 1245 BP: 119/79 Vitals: 07/30/18 1245 Pulse: 87 Vitals: 07/30/18 1245 Resp: 17 Vitals: 07/30/18 1300 Temp: 36.2 ??C Vitals: 07/30/18 1245 SpO2: 100% Patient Location: PACU Level of Consciousness: awake and alert Pain Management: pain being treated or addressed Airway Patency: patent Respiratory Status: spontaneous ventilation, unassisted and room air Cardiovascular Status: acceptable and hemodynamically stable Post-Op Nausea: none Postoperative Hydration: euvolemic Complications: no anesthesia complication TICAL SCIENCE FACULTY MEMBER * Anesthesia Preprocedure Evaluation - Brandon Ornelas MD - 07/30/2018 10:00 AM CST Anesthesia ROS/MED History Reviewed: Patient summary , Nursing notes , ECG, Family history anesthesia, Anesthesia history , Medications , Labs Pre-Anesthetic State: alert, awake and responds appropriately no history of anesthetic complications Pulmonary (+) sleep apnea, (CPAP), smoker (qut for 10 years) Cardiovascular ROS comment: HLD Neuro/Psych neg neuro/psych ROS GI/Hepatic/Renal (+) GERD (occasional) Endo/Other (+) diabetes mellitus, (Using Oral hypoglycemic), obese, (Morbid) GENERAL COMMENTS Physical Evaluation Airway Mallampati: II Neck ROM: normal Dental No notable dental history Pulmonary Cardiovascular Rhythm: regular Anesthesia Plan ASA 3 Induction Anesthesia type: general Informed Consent Anesthetic plan and risks discussed with patient of whom consent was obtained. . TICAL SCIENCE FACULTY MEMBER documented in this encounter Plan of Treatment Not on file documented as of this encounter Visit Diagnoses Not on filedocumented in this encounter Administered Medications Inactive Administered Medications - up to 3 most recent administrations Medication Order MAR Action Action Date Dose Rate Site fentaNYL (SUBLIMAZE) injection Intravenous, PRN, Starting on Thu07/30/18 at 1148, Until Thu07/30/18 at 1212, Anesthesia Intra-Op Given 07/30/2018 12:04 PM POLITICAL SCIENCE FACULTY MEMBER 25 mcg Given 07/30/2018 11:57 AM POLITICAL SCIENCE FACULTY MEMBER 25 mcg Given 07/30/2018 11:48 AM POLITICAL SCIENCE FACULTY MEMBER 50 mcg lidocaine (PF) (XYLOCAINE) 2 % injection Intravenous, PRN, Starting on Thu07/30/18 at 1148, Until Thu07/30/18 at 1212, Anesthesia Intra-Op Given 07/30/2018 11:48 AM POLITICAL SCIENCE FACULTY MEMBER 100 mg midazolam (VERSED) injection Intravenous, PRN, Starting on Thu07/30/18 at 1141, Until Thu07/30/18 at 1212, Anesthesia Intra-Op Given 07/30/2018 11:41 AM POLITICAL SCIENCE FACULTY MEMBER 2 mg propofol (DIPRIVAN) IV bolus Intravenous, Continuous PRN, Starting on Thu07/30/18 at 1148, Until Thu07/30/18 at 1212, Anesthesia Intra-Op Rate/Dose Change 07/30/2018 12:04 PM POLITICAL SCIENCE FACULTY MEMBER 140 mcg/kg/min 90.9 mL/hr Rate/Dose Change 07/30/2018 11:58 AM POLITICAL SCIENCE FACULTY MEMBER 120 mcg/kg/min 77 .9 mL/hr Rate/Dose Change 07/30/2018 11:53 AM POLITICAL SCIENCE FACULTY MEMBER 100 mcg/kg/min 64 .9 mL/hr propofol (DIPRIVAN) IV bolus Intravenous, PRN, Starting on 12/28/18 at 1149, Until 07/30/18 at 1212, Anesthesia Intra-Op Given 07/30/2018 11:49 AM POLITICAL SCIENCE FACULTY MEMBER 50 mg documented in this encounter Care Teams Arc Air Operator Relationship Specialty Start Date End Date Adriana Baker PA [address] [place] [address] PCP - General 07/23/18 documented as of this encounter
--- OUTSIDE RECORDS SUMMARY | 2024-08-02 01:29 | XMS_ITS | Encounter Summary ---
Author Organization [facility] Address [address] [place] [address]. [place] [address] [place] [address] Care Team Providers Care Manager Harbor Name Role Phone Adriana Baker Primary Care Provider [phone] Encounter Details Date Type Department Care Team (Late st Contact Info) Description 06/06/2019 2:38 PM SURVEILLANCE DIRECTOR - 06/06/2019 4:35 PM [facility] Hospital Encounter [facility] Pre-Admission Testing [place], [place] [id number] Nirav Dotson, DPM [address] [facility] [address] [place] [address] Discharge Disposition: Home or Self Care (Routine Discharge) Anesthesia Record Procedure Summary Procedure Name Responsible Anesthesiologist Anesthesia Start Time Anesthesia Stop Time INSTEP PLANTAR FASCIA RELEASE LEFT FOOT, REPAIR SUTURE PERONEAL TENDON OF LEFT FOOT (Left: Foot) Kenrick Ritchie MD 06/17/19 0732 06/17/19 0847 Events No events on file. Meds * [...] Sign Reading Time Taken Comments Blood Pressure 124/72 06/06/2019 3:00 PM SURVEILLANCE DIRECTOR Pulse 90 06/06/2019 3:00 PM SURVEILLANCE DIRECTOR Temperature - - Respiratory Rate 12 06/06/2019 3:00 PM SURVEILLANCE DIRECTOR Oxygen Saturation 100% 06/06/2019 3:00 PM SURVEILLANCE DIRECTOR Inhaled Oxygen Concentration - - Weight 112.7 kg (248 lb 7.3 oz) 06/06/2019 3:00 PM SURVEILLANCE DIRECTOR Height 154.9 cm (5' 1 ) 06/06/2019 3:00 PM SURVEILLANCE DIRECTOR Body Mass Index 46.95 06/06/2019 3:00 PM SURVEILLANCE DIRECTOR documented in this encounter Medications at Time of Discharge atorvastatin 20 MG tablet Take 20 mg by mouth daily. azelastine 0.1 % nasal spray 1 spray by Nasal route daily. Use in each nostril as directed buPROPion 24 hr 300 MG 24 hr tablet Take 300 mg by mouth daily. clobetasol 0.05 % external solution Apply 1 Application topically daily. 07/12/2018 duloxetine 30 MG capsule Take 1 capsule by mouth daily. To equal 90 mg 06/05/2019 duloxetine 60 MG capsule Take 90 mg by mouth daily. fluticasone propionate 50 MCG/ACT nasal spray 1 spray by Nasal route daily. ibuprofen 800 MG tablet Take 800 mg by mouth every 8 (eight) hours as needed for Pain. ketoconazole 2 % shampoo Apply 1 Application topically weekly. 07/24/2017 loteprednol 0.5 % ophthalmic suspension Place 1 drop into both eyes as needed. montelukast 10 MG tablet Take 1 tablet by mouth daily. 05/18/2019 [place]-3 Fatty Acids (FISH OIL) 1200 MG CAPSULE DELAYED RELEASE Take 1 tablet by mouth daily. VICTOZA 18 MG/3ML injection INJECT 1.2 MG SUBCUTANEOUSLY DAILY 3 05/20/2019 documented as of this encounter Consult Notes * Maria Elena Ellison, VOCATIONAL REHABILITATION TECHNICIAN - 06/06/2019 3:58 PM CST Hospitalist Consultation Patient: Gilda Glez Date: 06/06/2019 female, 43-year-old Admit Date: 06/06/2019 Attending: Nirav Dotson DPM REASON FOR CONSULTATION: Medical management HISTORY OF PRESENT ILLNESS: Gilda Glez is a 43-year-old female who presents for preoperative evaluation. She is scheduled on 06/17/2019 for fascial release and ligament repair to the left foot. Patient has been having left foot pain since her original surgery in July 2018. She has no acute cardiac conditions, denies chest pain, or shortness of breath. Patient has a past medical history of sleep apnea, hyperlipidemia, GERD, depression, prediabetes. Patient denies history of chronic kidney disease, insulin dependentdiabetes mellitus, ischemic heart disease, heart failure, or history of CVA/TIA. Patient is able toambulate a flight of stairs without chest pain. She does admit to shortness of breath when climbing stairs, but says this is due to her weight. Patients functional capacity is moderate. Past Medical History: Diagnosis Date ??? Anxiety ??? Arthritis ??? Chronically dry eyes ??? Depression ??? DM (diabetes mellitus) (CMS/HCC) ??? GERD (gastroesophageal reflux disease) ??? HLD (hyperlipidemia) ??? Insulin resistance ??? Morbid obesity (CMS/HCC) ??? KENYON on CPAP ??? Peroneal tendinitis Past Surgical History: Procedure Laterality Date ??? COLONOSCOPY ??? ENT PROCEDURE UPPP for KENYON ??? HC LAPROSCOPIC CHOLECYSTECTOMY ??? HEMORRHOIDECTOMY ??? PLANTAR FASCIECTOMY Medications Prior to Admission Medication Sig Dispense Refill ??? atorvastatin 20 MG tablet Take 20 mg by mouth daily. ??? azelastine 0.1 % nasal spray 1 spray by Nasal route daily. Use in each nostril as directed ??? buPROPion 24 hr 300 MG 24 hr tablet Take 300 mg by mouth daily. ??? clobetasol 0.05 % external solution Apply 1 Application topically daily. ??? duloxetine 60 MG capsule Take 90 mg by mouth daily. ??? fluticasone propionate 50 MCG/ACT nasal spray 1 spray by Nasal route daily. ??? ibuprofen 800 MG tablet Take 800 mg by mouth every 8 (eight) hours as needed for Pain. ??? ketoconazole 2 % shampoo Apply 1 Application topically weekly. ??? loteprednol 0.5 % ophthalmic suspension Place 1 drop into both eyes as needed. ??? [place]-3 Fatty Acids (FISH OIL) 1200 MG CAPSULE DELAYED RELEASE Take 1 tablet by mouth daily. ??? [DISCONTINUED] BYDUREON BCISE 2 MG/0.85ML Auto-injector Inject 1 Dose into the skin weekly. 3 ??? duloxetine 30 MG capsule Take 1 capsule by mouth daily. To equal 90 mg ??? [DISCONTINUED] lifitegrast 5 % ophthalmic solution Place 1 Application into both eyes 2 (two) times a day. ??? [DISCONTINUED] metFORMIN 500 MG tablet Take 1,000 mg by mouth daily with breakfast. ??? montelukast 10 MG tablet Take 1 tablet by mouth daily. ??? VICTOZA 18 MG/3ML injection INJECT 1.2 MG SUBCUTANEOUSLY DAILY 3 Allergies Allergen Reactions ??? Cephalosporins Anaphylaxis Gets red, throat closes, locked bowels Social History: Social History Socioeconomic History ??? Marital status: Spouse name: Not on file ??? Number of children: Not on file ??? Years of education: Not on file ??? Highest education level: Not on file Occupational History ??? Not on file Social Needs ??? Financial resource strain: Not on file ??? Food insecurity: Worry: Not on file Inability: Not on file ??? Transportation needs: Medical: Not on file Non-medical: Not on file Tobacco Use ??? Smoking status: Former Smoker Packs/day: 0.50 Years: 15.00 Pack years: 7.50 Types: Cigarettes Last attempt to quit: 07/23/2008 Years since quittin.8 ??? Smokeless tobacco: Never Used Substance and Sexual Activity ??? Alcohol use: Yes Comment: socially ??? Drug use: No ??? Sexual activity: Not on file Lifestyle ??? Physical activity: Days per week: Not on file Minutes per session: Not on file ??? Stress: Not on file Relationships ??? Social connections: Talks on phone: Not on file Gets together: Not on file Attends sabianism service: Not on file Active member of club or organization: Not on file Attends meetings of clubs or organizations: Not on file Relationship status: Not on file ??? Intimate partner violence: Fear of current or ex partner: Not on file Emotionally abused: Not on file Physically abused: Not on file Forced sexual activity: Not on file Other Topics Concern ??? Not on file Social History Narrative ??? Not on file Family History Problem Relation Name Age of Onset ??? COPD Mother ??? Hypertension Mother ??? Hypertension Father ??? Diabetes Father ??? COPD Sister ??? Heart Disease Sister Medication management - Medication reconciliation reviewed and addressed. REVIEW OF SYSTEMS: A 14 point review of systems was taken and pertinent positive as per HPI PHYSICAL EXAMINATION: Vital 24 Hour Range Most Recent Value Temperature No Data Recorded Pulse Pulse Min: 90 Max: 90 90 Respiratory Resp Min: 12 Max: 12 12 Blood Pressure BP Min: 124/72 Max: 124/72 124/72 Pulse Oximetry SpO2 Min: 100 % Max: 100 % 100 % O2 No Data Recorded Vital Most Recent Value First Value Weight 112.7 kg (248 lb 7.3 oz) Weight: 112.7 kg (248 lb 7.3 oz) Height 5' 1 (154.9 cm) Height: 5' 1 (154.9 cm) BMI 47 N/A PHYSICAL EXAM: GEN: In no acute distress. Breathing comfortably on room air. HEENT: Clear conjunctiva. Mucous membranes moist. CHEST: CTA, no wheezes or crackles. CVS: RRR, no MRG. Abd: Soft, NT. Ext: No edema. SKIN: Warm, dry. No rashes or ulcers. PSYCH: Appropriate affect NEURO: Alert and oriented. CNII-XII grossly intact LABS: Pertinent Labs reviewed in Epic. No results for input(s): NA, K, CL, CO2, AGAP, BUN, CR, BUNCREATININ, GFRNON, GFR, GLU, CA in the last 168 hours. No results for input(s): WBC, RBC, HGB, HCT, MCV, MCH, MCHC, PLT, RDW, MPV, PERNEU, PERLYM, PERMON,PEREOS, PERBASO, NEUC, LYMC, MONOC, EOSC, BASOC, DTYPE in the last 168 hours. IMAGING & OTHER STUDIES: None ASSESSMENT & PLAN: Left foot pain Gilda Glez is presenting for preoperative evaluation for a left foot fascia release and ligament repair. She has no acute cardiac conditions. She has no risk factors based on the revised cardiac risk index include. Therefore she is at low risk for a major adverse cardiac event based on combinedsurgical and patient characteristics. Her functional capacity is moderate. Based on ACC/AHA guidelines, no further cardiac workup is indicated. HLD Continue home meds GERD Continue home meds Depression Continue home meds Prediabetes She tells me she is prediabetic and takes Victoza. Instructed to hold day of surgery. Sleep apnea Pliant with CPAP machine. Instructed to bring in in case she would need to stay the night. Morbid obesity BMI 46.95 Encouraged healthy lifestyle modification Follow-up with PCP Cosigned by Shilpa Burns MD at 06/06/2019 10:54 PM SURVEILLANCE DIRECTOR EILLANCE DIRECTOR EILLANCE DIRECTOR documented in this encounter OR Notes * OR PreOp - Megan Vo RN - 06/06/2019 3:43 PM CST I called Dr. Dotson's office and talked to Yenni, diet consultant. Notified her that patient's chart triggers a notice when trying to put in ancef as ordered. Notes that anaphylaxis to cephalosporins. Danay said she will send new orders for cleocin. EILLANCE DIRECTOR documented in this encounter Plan of Treatment Not on file documented as of this encounter Procedures Procedure Name Priority Date/Time Associated Diagnosis Comments BASIC METABOLIC PANEL STAT 06/06/2019 3:35 PM SURVEILLANCE DIRECTOR Preop examination documented in this encounter Results * (ABNORMAL) BASIC METABOLIC PANEL (06/06/2019 3:35 PM SURVEILLANCE DIRECTOR) [facility] GLUCOSE 90 70 - 99 MG/DL 06/06/2019 4:18 PM SURVEILLANCE DIRECTOR [facility] BUN 13 7 - 18 MG/DL 06/06/2019 4:18 PM SURVEILLANCE DIRECTOR [facility] CREATININE S/P/B 1.00 0.55 - 1.02 MG/DL 06/06/2019 4:18 PM SURVEILLANCE DIRECTOR [facility] SODIUM S/P/B 139 136 - 145 MMOL/L 06/06/2019 4:18 PM SURVEILLANCE DIRECTOR [facility] POTASSIUM S/P/B 3.8 3.5 - 5.1 MMOL/L 06/06/2019 4:18 PM [facility] CHLORIDE S/P/B 106 100 - 108 MMOL/L 06/06/2019 4:18 PM [facility] CO2 29.2 21 - 32 MMOL/L 06/06/2019 4:18 PM [facility] CALCIUM S/P/B 8.9 8.5 - 10.1 MG/DL 06/06/2019 4:18 PM [facility] ANION GAP 3.8(L) 5 - 15 MMOL/L 06/06/2019 4:18 PM [facility] BUN CREATININE RATIO 13.0 6 - 26 06/06/2019 4:18 PM [facility] EGFR NON-AFR. AMER. 69(L) >90 ML/MIN/1.7 3 M2 06/06/2019 4:18 PM [facility] EGFR AFR. AMER. 80(L) >90 ML/MIN/1.7 3 M2 06/06/2019 4:18 PM [facility] Comment: NOTE: eGFR is not calculated for patients <18 years of age. This is an estimated GFR (CKD EPI) and should not be used for calculating drug doses. 06/06/2019 3:35 PM SURVEILLANCE DIRECTOR Dori Nava [facility] Final Resu lt [facility] [address] [place] [address], documented in this encounter Visit Diagnoses Diagnosis Preop examination Preoperative examination, unspecified documented in this encounter Care Teams Manager Harbor Relationship Specialty Start Date End Date Adriana Baker PA [address] [place] [address] PCP - General 07/23/18 documented as of this encounter
--- OUTSIDE RECORDS SUMMARY | 2024-08-02 01:29 | XMS_ITS | Clinical Summary ---
Author Organization [facility] Address [address] [place] [address]. [place] [address] [place] [address] Care Team Providers Care Vfx Artist Name Role Phone Adriana Baker Primary Care Provider [phone] Allergies Active Allergy Reactions Criticality Noted Date Comments Cephalosporins Anaphylaxis High 12/01/2017 Gets red, throat closes, locked bowels Medications duloxetine 60 MG capsule Take 90 mg by mouth daily. Active buPROPion 24 hr 300 MG 24 hr tablet Take 300 mg by mouth daily. Active atorvastatin 20 MG tablet Take 20 mg by mouth daily. Active azelastine 0.1 % nasal spray 1 spray by Nasal route daily. Use in each nostril as directed Active fluticasone propionate 50 MCG/ACT nasal spray 1 spray by Nasal route daily. Active ibuprofen 800 MG tablet Take 800 mg by mouth every 8 (eight) hours as needed for Pain. Active loteprednol 0.5 % ophthalmic suspension Place 1 drop into both eyes as needed. Active clobetasol 0.05 % external solution Apply 1 Application topically daily. 8 Active ketoconazole 2 % shampoo Apply 1 Application topically weekly. 7 Active VICTOZA 18 MG/3ML injection INJECT 1.2 MG SUBCUTANEOUSLY DAILY 3 9 Active montelukast 10 MG tablet Take 1 tablet by mouth daily. 9 Active duloxetine 30 MG capsule Take 1 capsule by mouth daily. To equal 90 mg 9 Active [place]-3 Fatty Acids (FISH OIL) 1200 MG CAPSULE DELAYED RELEASE Take 1 tablet by mouth daily. Active Active Problems No known active problems Family History Medical History Relation Comments Diabetes Father Hypertension Father COPD Mother Hypertension Mother COPD Sister Heart Disease Sister Relation Status Comments Father Mother Sister Social History Tobacco Use Types Packs/Day Years [...] on file Sexual Orientation Not on file Last Filed Vital Signs Vital Sign Reading Time Taken Comments Blood Pressure 114/100 06/17/2019 10:00 AM USER ACCEPTANCE TESTER Pulse 94 06/17/2019 10:00 AM USER ACCEPTANCE TESTER Temperature 36.5 ??C (97.7 ??F) 06/17/2019 10:[address] Respiratory Rate 18 06/17/2019 9:00 AM USER ACCEPTANCE TESTER Oxygen Saturation 99% 06/17/2019 10:00 AM USER ACCEPTANCE TESTER Inhaled Oxygen Concentration - - Weight 111.3 kg (245 lb 6 oz) 06/17/2019 6:03 AM USER ACCEPTANCE TESTER Height 154.9 cm (5' 1 ) 06/17/2019 6:03 AM USER ACCEPTANCE TESTER Body Mass Index 46.36 06/17/2019 6:03 AM USER ACCEPTANCE TESTER Plan of Treatment Health Maintenance Due Date Last Done Comments Cervical Cancer Screening Pa p Smear (Age 30 to 64) Every 3 Years 1976 Colorectal Cancer Screening Colonoscopy (10 Years) 1976 Annual Physical 10/16/1979 Hepatitis C 1994 DTaP, Tdap and Td Vaccines ( 1 - Tdap) 10/16/1995 Hepatitis B Vaccines (1 of 3 - 19+ 3-dose series) 10/16/1995 Cervical Cancer Screening Pa p with HPV Testing (Age 30 to 64) Every 5 Years 2006 Cervical Cancer Screening wi HPV 2006 Mammogram Screening 2016 COVID-19 Vaccine (2023-2 5 season) 2024 Influenza Adult (#1) 2024 06/06/2014, 05/02/2013, 05/14/2012 Meningococcal Vaccine Aged Out No cassy kelly eligible based on patient's age to complete this topic Pneumococcal Vaccine: Pediatrics (0 to 5 Years) and At-Risk Patients (6 to 64 Years) Aged Out No longer eligible b ased on patient's age to complete this topic RSV Immunizations Under 20 Months Aged Out No longer eligible b ased on patient's age to complete this topic Medical Devices Implanted Type Area Cold Roll Inspector Device Identifier Shelf Expiration Date Model / Serial / Lot Graft Jacket Now Standard 2x4cm Implanted:Qty: 1 on 06/17/2019 by Nirav Dotson DPM at [facility] [employer] Graft Left: Foot [id number] 11/08/2020 [id number] / [id number] / Insurance [employer] Care Teams Vfx Artist Relationship Specialty Start Date End Date Adriana Baker PA [address] [place] [address] PCP - General 07/23/18
--- OUTSIDE RECORDS SUMMARY | 2024-08-02 01:29 | XMS_ITS | Encounter Summary ---
Author Organization [facility] Address [address] [place] [address]. [place] [address] [place] [address] Care Team Providers Care Senior Windows Systems Administrator Name Role Phone Adriana Baker Primary Care Provider [phone] Reason for Visit * Auth/Cert Specialty Diagnoses / Procedures Referred By Contac t Referred To Contact Diagnoses PERONEAL TENDONITIS M72.2 Procedures INSTEP PLANTAR FASCIA RELEASE LEFT FOOT, REPAIR SUTURE PERONEAL TENDON OF LEFT FOOT Referral ID Status Reason Start Date Expiration Date Visits Re quested Visits Authorized [id number] 1 1 Encounter Details Date Type Department Care Team (Late st Contact Info) Description 06/17/2019 7:30 AM MARKETING SYSTEMS MANAGER - 06/17/2019 9:20 AM MARKETING SYSTEMS MANAGER Surgery [facility] [place] [address] Nirav Dotson DPM [address] [address] INSTEP PLANTAR FASCIA RELEASE LEFT FOOT, REPAIR SUTURE PERONEAL TENDON OF LEFT FOOT Surgery Details Date/Time Status Location OR Service Patient Class Case Class Case Type Trauma Case? 06/17/2019 7:30 AM Posted [facility] OR OR 5 (Leti franco) Podiatry Short Stay/Outpat ient Surgery E - Elective No Panel 1 Procedure LRB Anes Op Region Wound Class Comments INSTEP PLANTAR FASCIA RELEASE LEFT FOOT, REPAIR SUTURE PERONEAL TENDON OF LEFT FOOT Left Monitor Anesthesia Care Foot Clean Surgeon Surgeon Role Service Panel Nirav Dotson DPM Primary Podiatry 1 Case Notes SCHEDULED WITH MAGDY ON 04/07/19 [facility] PHONE ASSESS Special Needs GRAFT LOIDA documented in this encounter Social History Tobacco [...] Sign Reading Time Taken Comments Blood Pressure 113/80 06/17/2019 9:15 AM MARKETING SYSTEMS MANAGER Pulse 94 06/17/2019 9:00 AM MARKETING SYSTEMS MANAGER Temperature 36.7 ??C (98 ??F) 06/17/2019 9:15 AM MARKETING SYSTEMS MANAGER Respiratory Rate 18 06/17/2019 9:00 AM MARKETING SYSTEMS MANAGER Oxygen Saturation 100% 06/17/2019 9:15 AM MARKETING SYSTEMS MANAGER Inhaled Oxygen Concentration - - Weight 111.3 kg (245 lb 6 oz) 06/17/2019 6:03 AM MARKETING SYSTEMS MANAGER Height 154.9 cm (5' 1 ) 06/17/2019 6:03 AM MARKETING SYSTEMS MANAGER Body Mass Index 46.36 06/17/2019 6:03 AM MARKETING SYSTEMS MANAGER documented in this encounter Discharge Instructions * Discharge Instructions* Herson Wesley RN - 06/17/2019 9:22 AM MARKETING SYSTEMS MANAGER Discharge patient to home when discharge criteria are met. Patient is nonweightbearing left lower extremity with knee scooter or wheelchair Patient may resume home medications prescribed by other physicians today. Dispense discharge instruction sheet Dispensed prescription for pain medication and antibiotics. Follow-up in the office in several days Because you had anesthesia ?? No driving for 24 hrs/ or while taking narcotic pain medication ?? No alcohol, no operating machinery, do not sign any binding contracts for 24 hrs/ or while taking narcotic pain medications. ?? Take pain medicine with food. Drink lots of fluids ?? Use stool softener while on narcotics ?? Avoid greasy, fried or spicy foods ?? Must have a responsible adult to stay with you for the rest of today and tonight. If any emergent problems such as shortness of breath, chest pain or calf pain go to Emergency Room If unable to void go to the Emergency Department ETING SYSTEMS MANAGER * Attachments The following attachments cannot be sent through Care Everywhere. * Hydrocodone and Acetaminophen, ADULT (Chadian) * Clindamycin (Systemic), ADULT ([place]adian) documented in this encounter Medications at Time [...] Take 1 tablet by mouth daily. 05/18/2019 [place]-3 Fatty Acids (FISH OIL) 1200 MG CAPSULE DELAYED RELEASE Take 1 tablet by mouth daily. VICTOZA 18 MG/3ML injection INJECT 1.2 MG SUBCUTANEOUSLY DAILY 3 05/20/2019 documented as of this encounter Nursing Notes * Herson Wesley RN - 06/17/2019 6:20 AM CST Hibiclens bathes at home x 2, nose to toes protocol completed. CHG wipes used on arrival to OPS, betadine swabs x 2 placed in bilateral nares per RN. Pt tolerated well. ETING SYSTEMS MANAGER documented in this encounter OR Notes * Op Note - Nirav Dotson DPM - 06/17/2019 8:51 AM CST Preoperative diagnosis: 1. Recalcitrant plantar fasciitis left 2.. Split tear peroneal brevis tendon left Postoperative diagnosis: Same as preop. Operative procedure: 1. Instep plantar fasciotomy left 2. Repair peroneal brevis tendon with Ferreira medical graft jacket Description of procedure: Under satisfactory LMA anesthesia with local field infiltration with local anesthetic foot and leg were prepped in usual sterile fashion high ankle tourniquet elevated to 250 mmHg for hemostasis was used for hemostasis. Attention was initially directed to the plantar aspect of the left foot. A 3 cm transverse incisionmade just distal to the calcaneal fat pad centered over the center and lateral aspect of the foot. The incision was deepened using blunt dissection superficial veins were cauterized as indicated. Calcaneal fat pad was reflected distally and proximally. The plantar fascial structures were identifiedand then released sequentially down to the layer of musculature. Good release of the medial centraland lateral band of the plantar fascia was palpable. Deep structures were reapproximated using 4-0 Vicryl and skin repaired using 4-0 nylon. Attention was then directed to the lateral aspect of the left foot and ankle. A 6 cm linear incision was made from the distal base of the fifth metatarsal proximally to the level of the lateral malleolus. Incision was deepened using sharp and blunt dissection superficial vessels were cauterized as indicated. Soft tissue dissection was carried down peroneal tendon identified at the insertion to the fifth metatarsal and traced proximally to the level of the malleolus. Small split longitudinal tear identified. The tendon was examined and noted to be healthy and viable otherwise. 4-0 Vicryl placed through the tendon at the tear site. The tendon was reinforced with a right medical graft jacket. G raft check it was applied around the circumference of the peroneal brevis tendon and sutured in a taco style fashion. Further reinforced and attached to the tendon with 4-0 Vicryl sutures. Good rangeof motion was visualized across the ankle. Deep structures were reapproximated using 2-0 and 4-0 Vicryl skin repaired using 4-0 nylon. Decadron was infiltrated into both perioperative sites. Xeroformgauze to mild compression bandage applied tourniquet released digital perfusion noted returned all digits. A pro wedge splint was then applied holding the foot in mild plantarflexion. Patient appeared to tolerate procedure well reviewed post care instructions follow-up in the officein several days ETING SYSTEMS MANAGER documented in this encounter Plan of Treatment Not on file documented as of this encounter Procedures Procedure Name Priority Date/Time Associated Diagnosis Comments POCT GLUCOSE - HERNANDEZ DOCKED DEVICE Routine 06/17/2019 8:56 AM MARKETING SYSTEMS MANAGER FASCIOTOMY PLANTAR HEEL SPUR ENDOSCOPIC 06/17/2019 7:32 AM MARKETING SYSTEMS MANAGER PERONEAL TENDONITIS M72.2 Case Notes SCHEDULED WITH MAGDY ON 04/07/19 [facility] PHONE ASSESS Special Needs GRAFT JACKET POCT GLUCOSE - HERNANDEZ DOCKED DEVICE Routine 06/17/2019 6:55 AM MARKETING SYSTEMS MANAGER POCT URINE (BACK OFFICE) Routine 06/17/2019 6:30 AM MARKETING SYSTEMS MANAGER Preop examination documented in this encounter Results * (ABNORMAL) POCT glucose (06/17/2019 8:56 AM MARKETING SYSTEMS MANAGER) GLUCOSE POC 100(H) 70 - 99 mg/dL 06/17/2019 8:57 AM MARKETING SYSTEMS MANAGER [facility] LAB ORDERS INTERFACE 06/17/2019 8:56 AM MARKETING SYSTEMS MANAGER us Nirav Dotson DPM POCT ORDERABLES - DEVICE Final Result Performing Organization Address [facility] Co de Phone Number [facility] LAB ORDERS INTERFACE US * POCT glucose (06/17/2019 6:55 AM MARKETING SYSTEMS MANAGER) GLUCOSE POC 90 70 - 99 mg/dL 06/17/2019 6:59 AM MARKETING SYSTEMS MANAGER [facility] LAB ORDERS INTERFACE 06/17/2019 6:55 AM MARKETING SYSTEMS MANAGER us Nirav Dotson DPM POCT ORDERABLES - DEVICE Final Result Performing Organization Address City/[facility]/ZIP Co de Phone Number [facility] ORDERS INTERFACE US * POCT URINE (06/17/2019 6:30 AM MARKETING SYSTEMS MANAGER) URINE HCG TEST NEGATIVE NEGATIVE [facility] Internal Control: VALID VALID [facility] 06/17/2019 6:30 AM MARKETING SYSTEMS MANAGER Dori Nava CNP POINT OF CARE TEST ORDERAB LES Final Result [facility] [address] [place] [address], [place] [phone] documented in this encounter Visit Diagnoses Not on filedocumented in this encounter Administered Medications Inactive Administered Medications - up to 3 most recent administrations Medication Order MAR Action Action Date Dose Rate Site acetaminophen (TYLENOL) tablet 1,000 mg 1,000 mg, Oral, Once, 1 dose, On Thu06/17/19 at 0700, Maximum dose of acetaminophen is 4000 mg from all sources in 24 hours., Pre-Op Given 06/17/2019 7:01 AM MARKETING SYSTEMS MANAGER 1,000 mg BUpivacaine (PF) (MARCAINE) 15 mL, lidocaine (XYLOCAINE) 2 % 15 mL solution As needed, Starting on Thu06/17/19 at 0742, Until Thu06/17/19 at 0843, Intra-Op Given 06/17/2019 7:42 AM MARKETING SYSTEMS MANAGER Operative Site dexamethasone (DECADRON) injection As needed, Starting on Thu06/17/19 at 0805, Until Thu06/17/19 at 0843, Intra-Op Given 06/17/2019 8:05 AM MARKETING SYSTEMS MANAGER 8 mg Operative Site gabapentin (NEURONTIN) capsule 300 mg 300 mg, Oral, Once, 1 dose, On Thu06/17/19 at 0700, Pre-Op Given 06/17/2019 7:01 AM MARKETING SYSTEMS MANAGER 300 mg hydrocodone-acetaminop hen (NORCO) 5-325 MG tablet 1 tablet 1 tablet, Oral, Every 6 hours PRN, Moderate pain (Scale 4 - 7), Starting on Thu06/17/19 at 0911, Until Thu06/17/19 at 0930, Maximum dose of acetaminophen is 4000 mg from all sources in 24 hours., PACU Given During Downtime 06/17/2019 9:18 AM MARKETING SYSTEMS MANAGER 1 tablet lactated ringers infusion at 10 mL/hr, Intravenous, Continuous, Starting on Thu06/17/19 at 0700, Until Thu06/17/19 at 1213, Infuse at TKO rate, Pre-Op New Bag 06/17/2019 7:03 AM MARKETING SYSTEMS MANAGER 10 mL/hr ondansetron (ZOFRAN-ODT) disintegrating tablet 8 mg 8 mg, Oral, Once, 1 dose, On Thu06/17/19 at 0700, On admission, Pre-Op Given 06/17/2019 7:03 AM MARKETING SYSTEMS MANAGER 8 mg documented in this encounter Active and Recently Administered Medications Times are shown in MARKETING SYSTEMS MANAGER. Scheduled Medication Order 06/15/2019 06/16/2019 06/17/2019 acetaminophen (TYLENOL) tablet 1,000 mg (COMPLETED) 1,000 mg, Oral, Once, 1 dose, On Thu06/17/19 at 0700, Maximum dose of acetaminophen is 4000 mg from all sources in 24 hours., Pre-Op 0701 (Given - Provid er: Herson Wesley RN) clindamycin (CLEOCIN) 900 mg in sodium chloride 0.9 % 50 mL IVPB (COMPLETED) 900 mg, Intravenous, at 100 mL/hr, bingo caller to O.R., 1 dose, First dose on Thu06/17/19 at 0630, Pre-Op 0745 (New Bag - Prov ider: Magalis Moss CRNA)0846 (Anesthesia Volume Adjustment - Provider: Magalis Moss CRNA) gabapentin (NEURONTIN) capsule 300 mg (COMPLETED) 300 mg, Oral, Once, 1 dose, On Thu06/17/19 at 0700, Pre-Op 0701 (Given - Provid er: Herson Wesley RN) ondansetron (ZOFRAN-ODT) disintegrating tablet 8 mg (COMPLETED) 8 mg, Oral, Once, 1 dose, On Thu06/17/19 at 0700, On admission, Pre-Op 0703 (Given - Provid er: Herson Wesley RN) Continuous Medication Order 06/15/2019 06/16/2019 06/17/2019 lactated ringers infusion at 10 mL/hr, Intravenous, Continuous, Starting on Thu06/17/19 at 0700, Until Thu06/17/19 at 1213, Infuse at TKO rate, Pre-Op 0703 (New Bag - Prov ider: Herson Wesley RN)0732 (Canceled Entry - Provider: Magalis Moss CRNA)0842 (Infusion Stop Time - Provider: Magalis Moss CRNA) PRN Medication Order 06/15/2019 06/16/2019 06/17/2019 BUpivacaine (PF) (MARCAINE) 15 mL, lidocaine (XYLOCAINE) 2 % 15 mL solution (CANCELED) As needed, Starting on Thu06/17/19 at 0742, Until Thu06/17/19 at 0843, Intra-Op 0742 (Given - Provid er: Nirav Dotson DPM) dexamethasone (DECADRON) injection (CANCELED) As needed, Starting on Thu06/17/19 at 0805, Until Thu06/17/19 at 0843, Intra-Op 0805 (Given - Provid er: Nirav Dotson DPM) hydrocodone-acetaminophen (NORCO) 5-325 MG tablet 1 tablet (CANCELED) 1 tablet, Oral, Every 6 hours PRN, Moderate pain (Scale 4 - 7), Starting on Thu06/17/19 at 0911, Until Thu06/17/19 at 0930, Maximum dose of acetaminophen is 4000 mg from all sources in 24 hours., PACU 0918 (Given During D owntime - Provider: Kem Melton RN - Comment: Anticipated pain) documented in this encounter Care Teams Senior Windows Systems Administrator Relationship Specialty Start Date End Date Adriana Baker PA [address] [place] [address] PCP - General 07/23/18 documented as of this encounter
--- OUTSIDE RECORDS SUMMARY | 2024-08-02 01:29 | XMS_ITS | Encounter Summary ---
Author Organization [facility] Address [address] [place] [address]. [place] [address] [place] [address] Care Team Providers Care Yard Conductor Name Role Phone Adriana Baker Primary Care Provider [phone] Encounter Details Date Type Department Care Team (Late st Contact Info) Description 06/06/2019 Prep for Procedure [facility] Pre-Admission Testing [facility] [place], [place] [id number] Nirav Dotson, DPM [address] [place] [phone] Social History Tobacco Use Types Packs/Day Years [...] documented as of this encounter Visit Diagnoses Diagnosis Plantar fasciitis- Primary Plantar fascial fibromatosis documented in this encounter Care Teams Yard Conductor Relationship Specialty Start Date End Date Adriana Baker PA [address] [place] [address] PCP - General 07/23/18 documented as of this encounter
--- OUTSIDE RECORDS SUMMARY | 2024-08-02 01:29 | XMS_ITS | Encounter Summary ---
Author Organization [facility] Address [address] [place] [address]. [place] [address] [place] [address] Care Team Providers Care Bar Catcher Name Role Phone Adriana Baker Primary Care Provider Reason for Visit * Auth/Cert Specialty Diagnoses / Procedures Referred By Contac t Referred To Contact Diagnoses PLANTAR FASCIITIS Procedures PLANTER FASCIITIS RELEASE ENDOSCOPIC LEFT FOOT Referral ID Status Reason Start Date Expiration Date Visits Re quested Visits Authorized [id number] 1 1 Encounter Details Date Type Department Care Team (Late st Contact Info) Description 07/30/2018 10:34 AM MAINTENANCE CUSTODIAN - 07/30/2018 2:05 PM [facility] Hospital Encounter [facility] [place], [place] [id number] Nirav Dotson, DPM [address] [facility] [address] [place] [address] Discharge Disposition: Home or Self Care (Routine Discharge) Social History Tobacco Use Types Packs/Day Years [...] Sign Reading Time Taken Comments Blood Pressure 117/70 07/30/2018 2:01 PM MAINTENANCE CUSTODIAN Pulse 92 07/30/2018 2:01 PM MAINTENANCE CUSTODIAN Temperature 37.6 ??C (99.6 ??F) 07/30/2018 2:01 PM CS T Respiratory Rate 20 07/30/2018 2:01 PM MAINTENANCE CUSTODIAN Oxygen Saturation 99% 07/30/2018 2:01 PM MAINTENANCE CUSTODIAN Inhaled Oxygen Concentration - - Weight 108.2 kg (238 lb 8.6 oz) 018 10:53 AM MAINTENANCE CUSTODIAN Height 156.2 cm (5' 1.5 ) 07/30/2018 10 :53 AM MAINTENANCE CUSTODIAN Body Mass Index 44.34 07/30/2018 10:53 AM MAINTENANCE CUSTODIAN documented in this encounter Discharge Instructions * Discharge Instructions* Jonelle Villanueva RN - 07/30/2018 1:43 PM MAINTENANCE CUSTODIAN See dr. Dotosn post op instruction sheet Because you had anesthesia NO DRIVING FOR 24 HRS/ OR WHILE TAKING NARCOTIC PAIN MEDICATION NO ALCOHOL, NO OPERATING MACHINERY, DO NOT SIGN ANY BINDING CONTRACTS FOR 24 HOURS/ OR WHILE TAKINGNARCOTIC PAIN MEDICATION TAKE PAIN MEDICINE WITH FOOD USE STOOL SOFTENER WHILE ON NARCOTICS AVOID GREASY, FRIED OR SPICY FOODS MUST HAVE A RESPONSIBLE ADULT STAY WITH YOU FOR THE REST OF TODAY AND TONIGHT If any emergent problems such as shortness of breath, chest pain or calf pain go to emergency room If unable to void go to ED TENANCE CUSTODIAN documented in this encounter Medications at Time [...] breakfast. 9 documented as of this encounter Nursing Notes * Shara Martinez RN - 07/30/2018 1:15 PM CST Transfer of care report given including procedure performed, assessment of surgical dressing, Allergies, VTE, no dose of antibiotics given , IV access and fluids, allergies, pain control, Intake and output, Home script provided, Review of dressing and drainage if pertinent. Discussed past medical hx, Patient stable for transfer to asu. Patient has crutches and knee walker. TENANCE CUSTODIAN TENANCE CUSTODIAN documented in this encounter OR Notes * Op Note - Nirav Dotson DPM - 07/30/2018 12:23 PM CST Dictating report of operation. Preoperative diagnosis chronic plantar fasciitis left foot. Postoperative diagnosis the same. Operative procedure. Endoscopic plantar fascial release left foot. Description of procedure. Under satisfactory MAC anesthesia with local field infiltration local anesthetic foot and leg were prepped in usual sterile fashion. Tourniquet elevated to 250 mmHg for hemostasis. Attention directed to the medial aspect of the left heel. A 12 mm incision made on the medial aspect of the heel. The incision was deepened using blunt dissection. Dissection was carried laterally and just inferior to the palpable tight plantar fascial structure. Small exit portal wound was made onthe lateral aspect of the foot. Obturator was then advanced with cannula from the medial aspect through the lateral portal. The camera was then advanced through the lateral portal the plantar fascia was visualized. Through a series of sequential cuts using a triangle shaped blade the plantar fasciawas released on the medial and central band of the plantar fascia. The camera was then removed and r eintroduced from the medial portal and the remaining fibers of the medial band of the plantar fascia were effectively released. Muscular belly underneath was visualized. The camera and cannula were then removed. Palpation of the foot felt marked improvement with less strain on the plantar surface of the foot related to the plantar fascia. The incision was repaired using 5-0 nylon. Decadron infiltrated in the perioperative site. Xeroform gauze and a mild compression bandage applied tourniquet released digital perfusion noted to return to all digits. Placed patient in a nonweightbearing posterior splint. Recommend follow-up in the office in 4 days thank you TENANCE CUSTODIAN documented in this encounter Plan of Treatment Not on file documented as of this encounter Procedures Procedure Name Priority Date/Time Associated Diagnosis Comments POCT GLUCOSE - HERNANDEZ DOCKED DEVICE Routine 07/30/2018 12:28 PM MAINTENANCE CUSTODIAN FASCIOTOMY PLANTAR HEEL SPUR ENDOSCOPIC 07/30/2018 11:43 AM MAINTENANCE CUSTODIAN PLANTAR FASCIITIS Case Notes SCHED WITH DIANE ON 04/27/18 BUSTER PRETEST ON 07/23/18 AT 1530 POCT GLUCOSE - HERNANDEZ DOCKED DEVICE Routine 07/30/2018 11:34 AM MAINTENANCE CUSTODIAN POCT URINE (BACK OFFICE) Routine 07/30/2018 11:05 AM MAINTENANCE CUSTODIAN documented in this encounter Results * (ABNORMAL) POCT glucose (07/30/2018 12:28 PM MAINTENANCE CUSTODIAN) GLUCOSE POC 66(L) 70 - 99 mg/dL 07/30/2018 12:30 PM MAINTENANCE CUSTODIAN [facility] ORDERS INTERFACE 07/30/2018 12:2 8 PM MAINTENANCE CUSTODIAN us Nirav Dotson DPM POCT ORDERABLES - DEVICE Final Result [facility] ORDERS INTERFACE US * POCT glucose (07/30/2018 11:34 AM MAINTENANCE CUSTODIAN) GLUCOSE POC 73 70 - 99 mg/dL 07/30/2018 11:37 AM MAINTENANCE CUSTODIAN [facility] LAB ORDERS INTERFACE 07/30/2018 11:3 4 AM MAINTENANCE CUSTODIAN us Nirav Dotson DPM POCT ORDERABLES - DEVICE Final Result [facility] ORDERS INTERFACE US * POCT URINE (07/30/2018 11:05 AM MAINTENANCE CUSTODIAN) URINE HCG TEST NEGATIVE NEGATIVE [facility] Comment:Lot: [id number] Exp: 12/01/2019 Internal Control: VALID VALID [facility] Urine specimen (specimen) 07/30/2018 11:05 AM MAINTENANCE CUSTODIAN Angela Delarosa NP POINT OF CARE TEST ORDERABLES Final Result Performing Organization Address City/[facility]/ZIP Co de Phone Number [facility] [address] [place] [address], documented in this encounter Visit Diagnoses Not on filedocumented in this encounter Administered Medications Inactive Administered Medications - up to 3 most recent administrations Medication Order MAR Action Action Date Dose Rate Site hydrocodone-acetaminophen (NORCO) 5-325 MG tablet 2 tablet 2 tablet, Oral, Once, 1 dose, On Thu07/30/18 at 1330, Maximum dose of acetaminophen is 4000 mg from all sources in 24 hours., PACU Given 07/30/2018 1:08 PM MAINTENANCE CUSTODIAN 2 tablets lactated ringers infusion at 10 mL/hr, Intravenous, Continuous, Starting on Thu07/30/18 at 1115, Until Thu07/30/18 at 1629, Infuse at TKO rate, Pre-Op New Bag 07/30/2018 11:35 AM MAINTENANCE CUSTODIAN 10 mL/hr documented in this encounter Active and Recently Administered Medications Times are shown in MAINTENANCE CUSTODIAN. Scheduled Medication Order 07/28/2018 07/29/2018 07/30/2018 hydrocodone-acetaminophen (NORCO) 5-325 MG tablet 2 tablet (COMPLETED) 2 tablet, Oral, Once, 1 dose, On Thu07/30/18 at 1330, Maximum dose of acetaminophen is 4000 mg from all sources in 24 hours., PACU 1308 (Given - Provid er: Shara Martinez, MARK ANTHONY) Continuous Medication Order 07/28/2018 07/29/2018 07/30/2018 lactated ringers infusion at 10 mL/hr, Intravenous, Continuous, Starting on Thu07/30/18 at 1115, Until Thu07/30/18 at 1629, Infuse at TKO rate, Pre-Op 1135 (New Bag - Prov ider: Christi Vasquez, RN)1206 (Anesthesia Volume Adjustment - Provider: Felicia Richardson CRNA) PRN Medication Order 07/28/2018 07/29/2018 07/30/2018 dexamethasone (DECADRON) injection (CANCELED) As needed, Starting on Thu07/30/18 at 1207, Until Thu07/30/18 at 1213, Intra-Op 1207 (Given - Provid er: Nirav Dotson DPM) documented in this encounter Care Teams Bar Catcher Relationship Specialty Start Date End Date Adriana Baker PA [address] [place] [address] PCP - General 07/23/18 documented as of this encounter
--- OUTSIDE RECORDS SUMMARY | 2024-08-02 01:29 | XMS_ITS | Data Portability ---
Author Organization [facility] SI 11) Address [address] [facility] [address] [place] [address] Care Team Providers Care Advice Nurse Name Role Phone ALAN LAWS Referring Provider Assessment No assessment recorded. Plan of Treatment Reminders Order Date Submit Date Provider Last Modified By Organization Details Last Modified Time Details Appointments None record ed. Lab None record ed. Referral None record ed. Procedures None record ed. Surgeries None record ed. Imaging None record ed. Medication Orders None record ed. Patient TargetsNo targets recorded. Patient InstructionsNo instructions recorded. Reason for Referral None Reported. Procedures Surgical History Date Name Laterality Status Provider Name and Address Organization Details Recorded Time 01/02/2020 Sleep Study completed Humza Gregg [facility]/ [email or web address] 01/03/2020 09:07:36 Imaging Results None recorded. Procedure Notes None recorded. Medical Equipment None Reported. Medications Name Sig Start Date Stop Date Status Note LastModified by Organization Details LastModified Time topiramate 25 mg tabs active Not Available Not Available Not Available clotrimazole 10 mg nathen active Not Available Not Available Not Available doxycycline hyclate 100 mg capsule active Not Available Not Availab le Not Available atorvastatin 20 mg tablet active Not Available Not Available Not Available clindamycin HCl 300 mg capsule active Not Available Not Available N ot Available hydrocodone 5 mg-acetaminophen 325 mg tablet active Not Available Not Availabl e Not Available meloxicam 15 mg tablet active Not Available Not Available Not Available metronidazole 0.75 % (37.5 mg/5 gram) vaginal gel active Not Available Not Available Not Available topiramate 25 mg tablet active Not Available Not Available Not Available hydrocodone 7.5 mg-acetaminophen 325 mg tablet active Not Available Not Availabl e Not Available montelukast 10 mg tablet active Not Available Not Available Not Available clobetasol 0.05 % topical ointment active Not Available Not Avail able Not Available lorazepam 1 mg tablet active Not Available Not Available Not Available methylprednisolone 4 mg tablets in a dose pack active Not Available Not Available No t Available clobetasol 0.05 % scalp solution active Not Available Not Availab le Not Available fluticasone propionate 50 mcg/actuation nasal spray,suspension active Not Available Not Avail able Not Available Lotemax 0.5 % eye drops,suspension active Not Available Not Avail able Not Available bupropion HCl XL 300 mg 24 hr tablet, extended release active Not Available Not Available Not Available duloxetine 30 mg capsule,delayed release active Not Available Not Available Not Available duloxetine 60 mg capsule,delayed release active Not Available Not Available Not Available NovoTwist 32 gauge x 1/5 needle active Not Available Not Availabl e Not Available Victoza 2-Yash 0.6 mg/0.1 mL (18 mg/3 mL) subcutaneous pen injector active Not Available Not Available Not Available Flucelvax Quad (PF) 60 mcg (15 mcg x 4)/0.5 mL IM syringe active Not Available Not Available Not Available Vitals None Recorded Social History None recorded. Functional Status None recorded. Mental Status None recorded. Family History Nothing Reported. Medical History No medical history recorded. Gynecological HistoryNo gynecological history recorded. Obstetrics History GPAL:G 0 P 0 0 0 0 Past Encounters Encounter ID Performer Location Encounter Start Date Encounter Closed Date Diagnosis/Indication Diagnosis SNOMED-CT Code Diagnosis ICD10 Code [id number] Jogre Villeda MD [facility] [id number] [address] [facility] [phone] [facility] [address] [place] [address] 01/02/2020 21:21:03 01/03/2020 09:12:47 Obstructive sleep apnea of adult 1950293849 103 G47.33 Health Concerns Section Related Observation LastModified by Organization Detai ls LastModified Time None Recorded Concern Status LastModified by Organization Details LastModified Time None Recorded Advance Directives Directive None Recorded Payers Encounter Date Sequence Insurance Name Policy Number Policy [employer] Covered Member ID [employer] Member ID Guarantor Name 01/02/2020 1 [employer] (POS) [id number] Regina Glez [id number] Gilda Glez OBGyn Episode No OBEpisode recorded.
--- OUTSIDE RECORDS SUMMARY | 2024-08-02 01:29 | XMS_ITS | Encounter Summary ---
Author Organization [facility] Address [address] [place] [address]. [place] [address] [place] [address] Care Team Providers Care Foreign Exchange Student Coordinator Name Role Phone Adriana Baker Primary Care Provider [phone] Reason for Visit * Auth/Cert Specialty Diagnoses / Procedures Referred By Yuli t Referred To Contact Diagnoses PERONEAL TENDONITIS M72.2 Procedures INSTEP PLANTAR FASCIA RELEASE LEFT FOOT, REPAIR SUTURE PERONEAL TENDON OF LEFT FOOT Referral ID Status Reason Start Date Expiration Date Visits Re quested Visits Authorized [id number] 1 1 Encounter Details Date Type Department Care Team (Late st Contact Info) Description 06/17/2019 7:32 AM SILK SPOOLER Anesthesia Event [facility] [place] [address] Kenrick Ritchie MD [address] [facility] [address] [place], [place] [address] Dori Nava, CONTINUITY TESTER [address] [place] [address] Anesthesia Record Procedure Summary Procedure Name Responsible Anesthesiologist Anesthesia Start Time Anesthesia Stop Time INSTEP PLANTAR FASCIA RELEASE LEFT FOOT, REPAIR SUTURE PERONEAL TENDON OF LEFT FOOT (Left: Foot) Kenrick Ritchie MD 06/17/19 0732 06/17/19 0847 Events Date Time Event Comment 06/17/2019 0646 0646 AN Anesthesia Prepped 0652 AN AREA FORESTER Prepped 0732 An Start Patient ID and consent checked and patient reassessed. 0733 An Start Data 0736 Preoxygenation 0738 An Induction 0741 An LMA 0752 An Tourn Inflated 0836 An Emergence 0837 An Tourn Deflated 0839 LMA Removed 0839 Face Mask Applied 0841 an stop data 0847 Post Anesthetic Care Handoff I completed my handoff to the receiving nurse during which we: 1. Identified the patient 2. Identified the responsible provider 3. Reviewed the pertinent medical history 4. Discussed the surgical course 5. Reviewed intra-op anesthesia management and issues during anesthesia 6. Set expectations for post-procedure period 7. Allowed opportunity for questions and acknowledgement of understanding. 0847 An Stop Meds Name Total midazolam 2 mg/2 mL injection 2 mg fentaNYL (SUBLIMAZE) 100 mcg/2 mL inject ion 100 mcg lidocaine (PF) (XYLOCAINE) 2% injection 60 mg propofol (DIPRIVAN) 200 mg/20 mL injecti on 200 mg clindamycin (CLEOCIN) 900 mg in sodium c hloride 0.9 % 50 mL IVPB 900 mg lactated ringers infusion 600 mL * Agents Name O2 N2O Air Inspired Sevoflurane Sevoflurane * Blood No blood administrations on file. Lines, Drains, and Airways Type Details Placement Removal Peripheral IV Placement Date: 06/03 12/19; Placement Time: 0620; Placed Outside of This Facility?: No; Size: 18 G; Orientation: Right; Location: Hand; Site Prep: Chlorhexidine; Local Anesthetic: None; Insertion attempts: 1; Ultrasound-guided Placement?: No; Patient Tolerance: Tolerated well; Removal Date: 06/17/19; Removal Time: 1000 06/17/19 0620 by Herson Wesley RN 06/17/19 1000 by Herson Wesley RN Supraglottic Airway Placement Date: 06/03 12/19; Placement Time: 0741; Mask Ventilate: Easy, Prior to intubation; Airway Device: LMA; LMA Size: 4; Style: Other (igel); Insertion Attempts:1; Placement Verified By: Capnography, Chest Rise; Extubation Assessment: Suctioned, Tolerated well, Patient spontaneously breathing, Deep, Deep breathes w/equal chest movements, Atraumatic; Removal Date: 06/17/19; Removal Time: 0839; Removal Person: AREA FORESTER; Removal Reason: End of Case 06/17/19 0741 by Magalis Moss CRNA 06/17/19 0839 by Magalis Moss CRNA Surgical/Incision 06/17/19; 0839; Surg ical Wound; Foot; Left; SUTURE, XEROFORM, 4X4, EDWINADENI; 06/17/19; 1000; Surgical closure (patient discharged) 06/17/19 0839 by Linh Garces RN 06/17/19 1000 by Herson Wesley RN documented in this encounter Social History Tobacco [...] OR Notes * Anesthesia Postprocedure Evaluation - Kenrick Ritchie MD - 06/17/2019 11:10 AM CST Anesthesia Post-op Note Gilda Glez Procedure(s): INSTEP PLANTAR FASCIA RELEASE LEFT FOOT, REPAIR SUTURE PERONEAL TENDON OF LEFT FOOT (Left Foot) Anesthesia type: general Vitals: 06/17/19 1000 BP: (!) 114/100 Vitals: 06/17/19 1000 Pulse: 94 Vitals: 06/17/19 0900 Resp: 18 Vitals: 06/17/19 1000 Temp: 36.5 ??C Vitals: 06/17/19 1000 SpO2: 99% Patient Location: PACU Level of Consciousness: awake and alert Pain Management: adequate analgesia Airway Patency: patent Respiratory Status: acceptable Cardiovascular Status: acceptable Post-Op Nausea: none Postoperative Hydration: euvolemic Complications: no anesthesia complication SPOOLER * Anesthesia Preprocedure Evaluation - Kenrick Ritchie MD - 06/06/2019 2:31 PM CST Anesthesia ROS/MED History Reviewed: Patient summary , Nursing notes , ECG, Family history anesthesia, Anesthesia history , Medications , Labs , Images/Studies Pre-Anesthetic State: alert, awake and responds appropriately no history of anesthetic complications Pulmonary (+) sleep apnea, (CPAP), smoker (quit 2008, 7.5 pack year hx)(-) COPD, recent URI Cardiovascular Exercise tolerance: (Patient reports SOB with 2 FOS, but denies any CP. Denies recent changes in activity tolerance in past 6 months. ) (+) hyperlipidemia(-) hypertension, past FL, CAD, angina Neuro/Psych (+) depression, psychiatric problem, (anxiety), substance use, (alcohol use)(-) no seizures, no CVA GI/Hepatic/Renal (+) GERD, (well controlled)(-) liver disease, renal disease Endo/Other (+) diabetes mellitus (victoza), (diet controlled), (type 2), obese, (Morbid), arthritis, (OA) (-) blood dyscrasia GENERAL COMMENTS -- Cephalosporins -- Anaphylaxis -- Gets red, throat closes, locked bowels Past Medical History: No date: Anxiety No date: Arthritis No date: Chronically dry eyes No date: Depression No date: DM (diabetes mellitus) ([facility]) No date: GERD (gastroesophageal reflux disease) No date: HLD (hyperlipidemia) No date: Insulin resistance No date: Morbid obesity ([facility]) No date: KENYON on CPAP No date: Peroneal tendinitis Past Surgical History: No date: COLONOSCOPY No date: ENT PROCEDURE Comment: UPPP for KENYON No date: HC LAPROSCOPIC CHOLECYSTECTOMY No date: HEMORRHOIDECTOMY No date: PLANTAR FASCIECTOMY EKG 07/23/[address] DEPRESSION No previous ECG available for comparison Rate 83 Physical Evaluation Airway Mallampati: II TM Distance: >3 FB Neck ROM: normal Comment: Uvula/part of soft palate removed Dental No notable dental history Pulmonary Pulmonary exam normal Breath sounds clear to auscultation Cardiovascular Rhythm: regular Rate: normal Cardiovascular exam normal (+) peripheral edema (LLE) Other findings: Blood pressure 107/81, pulse 81, temperature 36.7 ??C, temperature source Oral, resp. rate 18, height 5' 1 (1.549 m), weight 111.3 kg (245 lb 6 oz), SpO2 96 %, not currently . No results for input(s): WBC, RBC, HGB, HCT, PLT, NA, K, CL, CO2, AGAP, BUN, CR, BUNCREATININ, GFRNON, GFR, GLU, CA in the last 72 hours. Anesthesia Plan ASA 3 Intravenous Induction Anesthesia type: general Discussed potential risks of General Anesthesia including but not limited to corneal abrasion, visual impairment or visual loss, mouth injury, dental damage, sore throat, hoarseness, esophageal injury, awareness under anesthesia, nerve injury due to positioning, aspiration, pneumonia, stroke, cardiac event, adverse drug reactions and . Gen with LMA Vs TIVA Informed Consent Anesthetic plan and risks discussed with patient of whom consent was obtained. . SPOOLER SPOOLER SPOOLER SPOOLER documented in this encounter Plan of Treatment Not on file documented as of this encounter Visit Diagnoses Not on filedocumented in this encounter Administered Medications Inactive Administered Medications - up to 3 most recent administrations Medication Order MAR Action Action Date Dose Rate Site clindamycin (CLEOCIN) 900 mg in sodium chloride 0.9 % 50 mL IVPB 900 mg, Intravenous, at 100 mL/hr, call or contact centre operator to O.R., 1 dose, First dose on Thu06/17/19 at 0630, Pre-OpIndications:Plantar fasciitis New Bag 06/17/2019 7:45 AM SILK SPOOLER 900 mg fentaNYL (SUBLIMAZE) injection PRN, Starting on Thu06/17/19 at 0753, Until Thu06/17/19 at 0847, Anesthesia Intra-Op Given 06/17/2019 8:42 AM SILK SPOOLER 25 mcg Given 06/17/2019 8:27 AM SILK SPOOLER 25 mcg Given 06/17/2019 7:53 AM SILK SPOOLER 25 mcg lidocaine (PF) (XYLOCAINE) 2 % injection Intravenous, PRN, Starting on Thu06/17/19 at 0738, Until Thu06/17/19 at 0847, Anesthesia Intra-Op Given 06/17/2019 7:38 AM SILK SPOOLER 60 mg midazolam (VERSED) injection Intravenous, PRN, Starting on Thu06/17/19 at 0730, Until Thu06/17/19 at 0847, Anesthesia Intra-Op Given 06/17/2019 7:30 AM SILK SPOOLER 2 mg propofol (DIPRIVAN) IV bolus Intravenous, PRN, Starting on Thu06/17/19 at 0738, Until Thu06/17/19 at 0847, Anesthesia Intra-Op Given 06/17/2019 7:38 AM SILK SPOOLER 200 mg documented in this encounter Care Teams Foreign Exchange Student Coordinator Relationship Specialty Start Date End Date Adriana Baker PA [address] [place] [address] PCP - General 07/23/18 documented as of this encounter
--- OUTSIDE RECORDS SUMMARY | 2024-08-02 01:29 | XMS_ITS | Encounter Summary ---
Author Organization [facility] Address [address] [place] [address]. [place] [address] [place] [address] Care Team Providers Care Ferruler Name Role Phone Adriana Baker Primary Care Provider [phone] Reason for Visit * Auth/Cert Specialty Diagnoses / Procedures Referred By Contac t Referred To Contact Diagnoses PERONEAL TENDONITIS M72.2 Procedures INSTEP PLANTAR FASCIA RELEASE LEFT FOOT, REPAIR SUTURE PERONEAL TENDON OF LEFT FOOT Referral ID Status Reason Start Date Expiration Date Visits Re quested Visits Authorized [id number] 1 1 Encounter Details Date Type Department Care Team (Late st Contact Info) Description 06/17/2019 5:28 AM BODYBUILDER - 06/17/2019 10:05 AM [facility] Hospital Encounter [facility] [place] [address] Nirav Dotson, DPM [address] [facility] [address] [place] [address] Discharge Disposition: Home or Self [...] Comments Blood Pressure 114/100 06/17/2019 10:00 AM BODYBUILDER Pulse 94 06/17/2019 10:00 AM BODYBUILDER Temperature 36.5 ??C (97.7 ??F) 06/17/2019 10:[address] Respiratory Rate 18 06/17/2019 9:00 AM BODYBUILDER Oxygen Saturation 99% 06/17/2019 10:00 AM BODYBUILDER Inhaled Oxygen Concentration - - Weight 111.3 kg (245 lb 6 oz) 06/17/2019 6:03 AM BODYBUILDER Height 154.9 cm (5' 1 ) 06/17/2019 6:03 AM BODYBUILDER Body Mass Index 46.36 06/17/2019 6:03 AM BODYBUILDER documented in this encounter Discharge Instructions * Discharge Instructions* Herson Wesley RN - 06/17/2019 9:22 AM BODYBUILDER Discharge patient to home when discharge criteria [...] to void go to the Emergency Department BUILDER * Attachments The following attachments cannot be sent through Care Everywhere. * Hydrocodone and Acetaminophen, ADULT (German) * Clindamycin (Systemic), ADULT (German) documented in this encounter Medications at Time [...] Take 1 tablet by mouth daily. 05/18/2019 Guttenberg-3 Fatty Acids (FISH OIL) 1200 MG CAPSULE [...] bilateral nares per RN. Pt tolerated well. BUILDER documented in this encounter OR Notes * [...] instructions follow-up in the officein several days BUILDER documented in this encounter Plan of Treatment Not on file documented as of this encounter Procedures Procedure Name Priority Date/Time Associated Diagnosis Comments POCT GLUCOSE - HERNANDEZ DOCKED DEVICE Routine 06/17/2019 8:56 AM BODYBUILDER FASCIOTOMY PLANTAR HEEL SPUR ENDOSCOPIC 06/17/2019 7:32 AM BODYBUILDER PERONEAL TENDONITIS M72.2 Case Notes SCHEDULED WITH MAGDY ON 04/07/19 [facility] PHONE ASSESS Special Needs GRAFT JACKET POCT GLUCOSE - HERNANDEZ DOCKED DEVICE Routine 06/17/2019 6:55 AM BODYBUILDER POCT URINE (BACK OFFICE) Routine 06/17/2019 6:30 AM BODYBUILDER Preop examination documented in this encounter Results * (ABNORMAL) POCT glucose (06/17/2019 8:56 AM BODYBUILDER) GLUCOSE POC 100(H) 70 - 99 mg/dL 06/17/2019 8:57 AM BODYBUILDER [facility] ORDERS INTERFACE 06/17/2019 8:56 AM BODYBUILDER Nirav Dotson DPM POCT ORDERABLES - DEVICE Final Result [facility] ORDERS INTERFACE US * POCT glucose (06/17/2019 6:55 AM BODYBUILDER) GLUCOSE POC 90 70 - 99 mg/dL 06/17/2019 6:59 AM BODYBUILDER [facility] ORDERS INTERFACE 06/17/2019 6:55 AM BODYBUILDER us Nirav Dotson DPM POCT ORDERABLES - DEVICE Final Result [facility] ORDERS INTERFACE US * POCT URINE (06/17/2019 6:30 AM BODYBUILDER) URINE HCG TEST NEGATIVE NEGATIVE [facility] Internal Control: VALID VALID [facility] 06/17/2019 6:30 AM BODYBUILDER Droi Nava APARTMENT COMMUNITY MANAGER POINT OF CARE TEST ORDERAB LES Final Result [facility] [address] [place] [address], [place] [phone] documented in this encounter Visit Diagnoses Diagnosis Preop examination- Primary Preoperative examination, unspecified Plantar fasciitis Plantar fascial fibromatosis documented in this encounter Administered Medications Inactive Administered Medications - up to 3 most recent administrations Medication Order MAR Action Action Date Dose Rate Site acetaminophen (TYLENOL) tablet 1,000 mg 1,000 mg, Oral, Once, 1 dose, On Thu06/17/19 at 0700, Maximum dose of acetaminophen is 4000 mg from all sources in 24 hours., Pre-Op Given 06/17/2019 7:01 AM BODYBUILDER 1,000 mg gabapentin (NEURONTIN) capsule 300 mg 300 mg, Oral, Once, 1 dose, On Thu06/17/19 at 0700, Pre-Op Given 06/17/2019 7:01 AM BODYBUILDER 300 mg hydrocodone-acetaminophen (NORCO) 5-325 MG tablet 1 tablet 1 tablet, Oral, Every 6 hours PRN, Moderate pain (Scale 4 - 7), Starting on Thu06/17/19 at 0911, Until Thu06/17/19 at 0930, Maximum dose of acetaminophen is 4000 mg from all sources in 24 hours., PACU Given During Downtime 06/17/2019 9:18 AM BODYBUILDER 1 tablet lactated ringers infusion at 10 mL/hr, Intravenous, Continuous, Starting on Thu06/17/19 at 0700, Until Thu06/17/19 at 1213, Infuse at TKO rate, Pre-Op New Bag 06/17/2019 7:03 AM BODYBUILDER 10 mL/hr ondansetron (ZOFRAN-ODT) disintegrating tablet 8 mg 8 mg, Oral, Once, 1 dose, On Thu06/17/19 at 0700, On admission, Pre-Op Given 06/17/2019 7:03 AM BODYBUILDER 8 mg documented in this encounter Active and Recently Administered Medications Times are shown in BODYBUILDER. Scheduled Medication Order 06/15/2019 06/16/2019 06/17/2019 acetaminophen (TYLENOL) tablet 1,000 mg (COMPLETED) 1,000 mg, Oral, Once, 1 dose, On Thu06/17/19 at 0700, Maximum dose of acetaminophen is 4000 mg from all sources in 24 hours., Pre-Op 07 (Given - Provid er: Herson Wesley RN) clindamycin (CLEOCIN) 900 mg in sodium chloride 0.9 % 50 mL IVPB (COMPLETED) 900 mg, Intravenous, at 100 mL/hr, director call to O.R., 1 dose, First dose on [...] pain) documented in this encounter Care Teams Ferruler Relationship Specialty Start Date End Date Adriana Baker PA [address] [place] [address] PCP - General 07/23/18 documented as of this encounter
--- OUTSIDE RECORDS SUMMARY | 2024-08-02 01:29 | XMS_ITS | Encounter Summary ---
Author Organization [facility] Address [address] [place] [address]. [place] [address] [place] [address] Care Team Providers Care Zigzagger Name Role Phone Adriana Baker Primary Care Provider [phone] Reason for Visit * Auth/Cert Specialty Diagnoses / Procedures Referred By Contac t Referred To Contact Diagnoses PLANTAR FASCIITIS Procedures PLANTER FASCIITIS RELEASE ENDOSCOPIC LEFT FOOT Referral ID Status Reason Start Date Expiration Date Visits Re quested Visits Authorized [id number] 1 1 Encounter Details Date Type Department Care Team (Late st Contact Info) Description 07/30/2018 1:01 PM CONSTRUCTION PROJECT ASSISTANT - 07/30/2018 2:13 PM CONSTRUCTION PROJECT ASSISTANT Surgery [facility] [place], [place] [id number] Nirav Dotson, RIAM [address] [facility] [address] [place] [address] PLANTER FASCIITIS RELEASE ENDOSCOPIC LEFT FOOT Surgery Details Date/Time Status Location OR Service Patient Class Case Class Case Type Trauma Case? 07/30/2018 1:01 PM Posted [facility] OR OR 2 Podiatry Short Stay/Outpat ient Surgery E - Elective No Panel 1 Procedure LRB Anes Op Region Wound Class Comments PLANTER FASCIITIS RELEASE ENDOSCOPIC LEFT FOOT Left Monitor Anesthesia Care Foot Clean Surgeon Surgeon Role Service Panel Nirav Dotson DPM Primary Podiatry 1 Case Notes SCHED WITH DIANE ON 04/27/18 BUSTER PRETEST ON 07/23/18 AT 1530 documented in this encounter Social History Tobacco [...] Comments Blood Pressure 117/70 07/30/2018 2:01 PM CONSTRUCTION PROJECT ASSISTANT Pulse 92 07/30/2018 2:01 PM CONSTRUCTION PROJECT ASSISTANT Temperature 37.6 ??C (99.6 ??F) 07/30/2018 2:01 PM CS T Respiratory Rate 20 07/30/2018 2:01 PM CONSTRUCTION PROJECT ASSISTANT Oxygen Saturation 99% 07/30/2018 2:01 PM CONSTRUCTION PROJECT ASSISTANT Inhaled Oxygen Concentration - - Weight 108.2 kg (238 lb 8.6 oz) 018 10:53 AM CONSTRUCTION PROJECT ASSISTANT Height 156.2 cm (5' 1.5 ) 07/30/2018 10 :53 AM CONSTRUCTION PROJECT ASSISTANT Body Mass Index 44.34 07/30/2018 10:53 AM CONSTRUCTION PROJECT ASSISTANT documented in this encounter Discharge Instructions * Discharge Instructions* Jonelle Villanueva RN - 07/30/2018 1:43 PM CONSTRUCTION PROJECT ASSISTANT See dr. Dotson post op instruction sheet Because you had [...] If unable to void go to ED TRUCTION PROJECT ASSISTANT documented in this encounter Medications at Time [...] asu. Patient has crutches and knee walker. TRUCTION PROJECT ASSISTANT TRUCTION PROJECT ASSISTANT documented in this encounter OR Notes * [...] the office in 4 days thank you TRUCTION PROJECT ASSISTANT documented in this encounter Plan of Treatment Not on file documented as of this encounter Procedures Procedure Name Priority Date/Time Associated Diagnosis Comments POCT GLUCOSE - HERNANDEZ DOCKED DEVICE Routine 07/30/2018 12:28 PM CONSTRUCTION PROJECT ASSISTANT FASCIOTOMY PLANTAR HEEL SPUR ENDOSCOPIC 07/30/2018 11:43 AM CONSTRUCTION PROJECT ASSISTANT PLANTAR FASCIITIS Case Notes SCHED WITH DIANE ON 04/27/18 PARMINDER PRETEST ON 07/23/18 AT 1530 POCT GLUCOSE - HERNANDEZ DOCKED DEVICE Routine 07/30/2018 11:34 AM CONSTRUCTION PROJECT ASSISTANT POCT URINE (BACK OFFICE) Routine 07/30/2018 11:05 AM CONSTRUCTION PROJECT ASSISTANT documented in this encounter Results * (ABNORMAL) POCT glucose (07/30/2018 12:28 PM CONSTRUCTION PROJECT ASSISTANT) GLUCOSE POC 66(L) 70 - 99 mg/dL 07/30/2018 12:30 PM CONSTRUCTION PROJECT ASSISTANT [facility] ORDERS INTERFACE 07/30/2018 12:2 8 PM CONSTRUCTION PROJECT ASSISTANT Fredyi Buster Nila DPM POCT ORDERABLES - DEVICE Final Result Performing Organization Address City/[facility]/ZIP Co de Phone Number [facility] ORDERS INTERFACE US * POCT glucose (07/30/2018 11:34 AM CONSTRUCTION PROJECT ASSISTANT) GLUCOSE POC 73 70 - 99 mg/dL 07/30/2018 11:37 AM CONSTRUCTION PROJECT ASSISTANT [facility] ORDERS INTERFACE 07/30/2018 11:3 4 AM CONSTRUCTION PROJECT ASSISTANT Nirav Buster Nila DPM POCT ORDERABLES - DEVICE Final Result Performing Organization Address [facility]/[place] Co de Phone Number [facility] ORDERS INTERFACE US * POCT URINE (07/30/2018 11:05 AM CONSTRUCTION PROJECT ASSISTANT) URINE HCG TEST NEGATIVE NEGATIVE [facility] Comment:Lot: [id number] Exp: 12/01/2019 Internal Control: VALID VALID [facility] Urine specimen (specimen) 07/30/2018 11:05 AM CONSTRUCTION PROJECT ASSISTANT Angela Delarosa NP POINT OF CARE TEST ORDERABLES Final Result Performing Organization Address City/[facility]/[place] Co de Phone Number [facility] [address] [place] [address], [place] [phone] documented in this encounter Visit Diagnoses Not on filedocumented in this encounter Administered Medications Inactive Administered Medications - up to 3 most recent administrations Medication Order MAR Action Action Date Dose Rate Site dexamethasone (DECADRON) injection As needed, Starting on Thu07/30/18 at 1207, Until Thu07/30/18 at 1213, Intra-Op Given 07/30/2018 12:07 PM CONSTRUCTION PROJECT ASSISTANT 4 mLs Operative Site hydrocodone-acetaminophe n (NORCO) 5-325 MG tablet 2 tablet 2 tablet, Oral, Once, 1 dose, On Thu07/30/18 at 1330, Maximum dose of acetaminophen is 4000 mg from all sources in 24 hours., PACU Given 07/30/2018 1:08 PM CONSTRUCTION PROJECT ASSISTANT 2 tablets lactated ringers infusion at 10 mL/hr, Intravenous, Continuous, Starting on Thu07/30/18 at 1115, Until Thu07/30/18 at 1629, Infuse at TKO rate, Pre-Op New Bag 07/30/2018 11:35 AM CONSTRUCTION PROJECT ASSISTANT 10 mL/hr documented in this encounter Active and Recently Administered Medications Times are shown in CONSTRUCTION PROJECT ASSISTANT. Scheduled Medication Order 07/28/2018 07/29/2018 07/30/2018 hydrocodone-acetaminophen (NORCO) 5-325 MG tablet 2 tablet (COMPLETED) 2 tablet, Oral, Once, 1 dose, On Thu07/30/18 at 1330, Maximum dose of acetaminophen is 4000 mg from all sources in 24 hours., PACU 1308 (Given - Provid er: Shara Martinez RN) Continuous Medication Order 07/28/2018 07/29/2018 07/30/2018 lactated ringers infusion at 10 mL/hr, Intravenous, Continuous, Starting on Thu07/30/18 at 1115, Until Thu07/30/18 at 1629, Infuse at TKO rate, Pre-Op 1135 (New Bag - Prov ider: Christi Vasquez RN)1206 (Anesthesia Volume Adjustment - Provider: Felicia Richardson CRNA) PRN Medication Order 07/28/2018 07/29/2018 07/30/2018 dexamethasone (DECADRON) injection (CANCELED) As needed, Starting on Thu07/30/18 at 1207, Until Thu07/30/18 at 1213, Intra-Op 1207 (Given - Provid er: Nirav Dotson DPM) documented in this encounter Care Teams Zigzagger Relationship Specialty Start Date End Date Adriana Baker PA [address] [place] [address] PCP - General 07/23/18 documented as of this encounter
--- OUTSIDE RECORDS SUMMARY | 2024-08-02 01:31 | XMS_ITS | Clinical Summary ---
Author Organization [facility] Address [address], [facility] [address] [place] [address] Phone Care Team Providers Care Meteorology Teacher Name Role Phone Adriana Baker Primary Care Provider Allergies Active Allergy Reactions Criticality Noted Date Comments Cephalosporins Anaphylaxis 12/01/2017 Gets red, throat closes, locked bowels Medications DULoxetine (CYMBALTA) [address] Particles TAKE ONE CAPSULE BY MOUTH DAILY 2 11/13/2017 Active buPROPion (WELLBUTRIN) 300 MG TABLET SR 24 HR XL tablet Take 300 mg by mouth daily. 5 09/18/2017 Active atorvastatin (LIPITOR) 20 MG Tablet TAKE 1 TABLET(S) EVERY DAY BY ORAL ROUTE. 3 09/20/2017 Active montelukast (SINGULAIR) 10 MG Tablet TAKE 1 TABLET BY MOUTH IN THE MORNING 1 11/18/2017 Active IBUPROFEN PO Take by mouth daily as needed. Active Fluticasone Propionate (FLONASE NA) by Nasal route daily as needed. Active azelastine (ASTELIN) 0.1 % Solution 2 Sprays by Nasal route Daily as needed. Use in each nostril as directed Active metFORMIN (GLUCOPHAGE) 1000 MG Tablet Take 1,000 mg by mouth daily. Active Family History Medical History Relation Name Comments Diabetes Father Hypertension Father Cancer Maternal Aunt LUNG Chronic Obstructive Pulmonary Disease Mother Hypertension Mother Heart Disease Sister Hypertension Sister Relation Name Status Comments Father Alive Maternal Aunt Mother Alive Sister Social History Tobacco Use Types Packs/Day Years Used Date Smoking Tobacco: Former Cigarettes 0.5 15 1 994 - 2009 Smokeless Tobacco: Never Alcohol Use Standard Drinks/Week Comments Yes 0 (1 standard drink = 0.6 oz pur e alcohol) socially Comments No Sex and Gender Information Value Date Recorded Sex Assigned at Not on file Legal Sex Female 1:53 PM CDT Gender Identity Not on file Sexual Orientation Not on file 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 Not on file Not on file Not on file Last Filed Vital Signs Vital Sign Reading Time Taken Comments Blood Pressure 116/83 01/04/2018 8:54 AM CDT Pulse 72 01/04/2018 8:54 AM CDT Temperature 36 ??C (96.8 ??F) 01/04/2018 8:54 AM CDT Respiratory Rate 19 01/04/2018 8:54 AM CDT Oxygen Saturation 100% 01/04/2018 8:54 AM CDT Inhaled Oxygen Concentration - - Weight 109.8 kg (242 lb) 12/22/2017 11:00 AM CDT Height 156.2 cm (5' 1.5 ) 12/22/2017 11:00 AM CD T Body Mass Index 44.99 12/22/2017 11:00 AM CDT Plan of Treatment Health Maintenance Due Date Last Done Comments Hepatitis C Virus (HCV) Screening 1976 TdaP Immunization 1976 Hepatitis B Immunization (1 of 3 - 19+ 3-dose series) 10/16/1995 Pap Smear 1997 Cervical Cancer Screening (CCS) 2006 HPV/Cotest 2006 Discussion re Starting/Frequency of Mammograms 2016 Colonoscopy 01/04/2023 01/04/2018 Colorectal Cancer Screening 01/04/2023 SARS-COV-2 Immunization ( season) 2023 11/08/2020 Influenza Immunization (#1) 2024 11/0 11/2013, 05/02/2013, 05/14/2012 01/04/2018 Meningococcal Immunization (ACWY) Aged Out No longer eligible b ased on patient's age to complete this topic Pneumococcal Immunization Combined Aged Out No longer eligible b ased on patient's age to complete this topic Rotavirus Immunization Aged Out No lo nger eligible based on patient's age to complete this topic Care Teams Meteorology Teacher Relationship Specialty Start Date End Date Adriana Baker PA PCP - General Family Medicine 11/24/17
--- OUTSIDE RECORDS SUMMARY | 2024-08-02 01:32 | XMS_ITS | Referral Summary ---
Author Organization [facility] Address [address] [place] [address] Care Team Providers Care Mac Artist Name Role Phone Adriana Baker Primary Care Pr ovider Allergies Active Allergy Reactions Criticality Noted Date Comments Cephalosporins Anaphylaxis High 12/01/2017 Gets red, throat closes, locked bowels Medications progesterone (PROMETRIUM) 200 mg capsule Take 1 capsule (200 mg total) by mouth daily [address] (PROTONIX) 40 mg EC tablet Take 1 tablet (40 mg total) by mouth daily 4 Active montelukast (SINGULAIR) 10 mg tablet Take 1 tablet (10 mg total) by mouth daily 8 Active ibuprofen (ADVIL,MOTRIN) 800 mg tablet Take 1 tablet (800 mg total) by mouth every 8 (eight) hours as needed Active fluticasone propionate (FLONASE) 50 mcg/actuation nasal spray Administer 1 spray into affected nostril(s) daily Active estradioL (ESTRACE) 1 mg tablet Take 1 tablet (1 mg total) by mouth daily [address] (CYMBALTA) 30 mg capsule Take 1 capsule (30 mg total) by mouth daily [address] (CYMBALTA) 60 mg capsule Take 90 mg by mouth daily 8 Active buPROPion XL (WELLBUTRIN XL) 300 mg 24 hr tablet Take 1 tablet (300 mg total) by mouth daily 8 Active atorvastatin (LIPITOR) 20 mg tablet Take 1 tablet (20 mg total) by mouth daily 8 Active Active Problems No known active problems Social History Tobacco Use Types Packs/Day Years Used Date Smoking Tobacco: Never Assessed Personal Safety Answer Date Recorded Getting School Help Needed Not on file 01/18 Comments Unknown Sex and Gender Information Value Date Recorded Sex Assigned at Not on file Legal Sex Female 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 Gender Identity Not on file Sexual Orientation Not on file Last Filed Vital Signs Vital Sign Reading Time Taken Comments Blood Pressure 133/84 03/02/2024 3:32 PM CDT Pulse 75 03/02/2024 3:32 PM CDT Temperature - - Respiratory Rate - - Oxygen Saturation - - Inhaled Oxygen Concentration - - Weight 106.1 kg (234 lb) 03/02/2024 3:32 PM CDT Height - - Body Mass Index - - Plan of Treatment Not on file Insurance [facility] H[facility]PPO Address: [address] [address] [place] [address] Care Teams Mac Artist Relationship Specialty Start Date End Date Adriana Baker PA [address] [place] [address] PCP - General Physician Manager Completions 01/19/24
--- OUTSIDE RECORDS SUMMARY | 2024-08-02 01:32 | XMS_ITS | Encounter Summary ---
Author Organization [facility] Address [address] [place] [address] Care Team Providers Care Hvac Project Engineer Name Role Phone Adriana Baker Primary Care Pr ovider Reason for Referral * Consultation (Routine) - Closed Specialty Diagnoses / Procedures Referred By Contac t Referred To Contact Physical Therapy Diagnoses Trochanteric bursitis of right hip Avni Osborne PA [address] [place] [address] [address] Phone: tel: fax: [facility] [address] [address] Phone: tel: fax: Referral ID Status Reason Start Date Expiration Date V isits Requested Visits Authorized [id number] Closed Evaluate and Treat 03/03/2024 04/02/2025 6 6 Question Answer Therapy options discussed with patient? Yes Location provided for therapy services is: Patient requested/Patient preferred Please select the performing region: External Order [171] To loc/pos [facility] [place] [[id number]] # of visits: 6 Comments 1 time 6 weeks Please evaluate and treat Please call patient to schedule Encounter Details Date Type Department Care Team (Late st Contact Info) Description 03/03/2024 Orders Only [facility] Orthopedic and Sports Medicine [address] [place] [phone] Avni Osborne PA [address] [place] [address] [address] [place] [address] Trochanteric bursitis of right hip (Primary Dx) Social History Tobacco Use Types Packs/Day Years Used Date Smoking Tobacco: Never Assessed Personal Safety Answer Date Recorded Getting School Help Needed Not on file 01/18 Comments Unknown Sex and Gender Information Value Date Recorded Sex Assigned at Not on file Legal Sex Female 12:18 AM DAY TREATMENT CLINICIAN/ART THERAPIST Gender Identity Not on file Sexual Orientation Not on file documented as of this encounter Plan of Treatment Scheduled Referrals Name Type Priority Associated Diagnoses Order Schedule Ambulatory referral order to Physical Therapy - Outpatient Referral Routine Trochanteric bursitis of right hip Expected: 03/03/2024 (Approximate), Expires: 03/03/2025 documented as of this encounter Visit Diagnoses Diagnosis Trochanteric bursitis of right hip- Primary documented in this encounter Care Teams Hvac Project Engineer Relationship Specialty Start Date End Date Adriana Baker PA [address] [place] [address] PCP - General Physician Solder Cream Maker 01/19/24 documented as of this encounter
--- OUTSIDE RECORDS SUMMARY | 2024-08-02 01:32 | XMS_ITS | Encounter Summary ---
Author Organization [facility] Address [address] [place] [address] Care Team Providers Care Vp Analytics Name Role Phone Adriana Baker Primary Care Pr ovider Reason for Visit * Diagnostic Imaging (Routine) - Closed Specialty Diagnoses / Procedures Referred By Contac t Referred To Contact Diagnoses Right hip pain Procedures XR Hip Right 2 or 3 Views W Pelvis Avni Osborne PA [address] [place] [address] [address] [place] [address] Phone: tel: fax: [facility] Referral ID Status Reason Start Date Expiration Date Visits Re quested Visits Authorized [id number] Closed 03/02/2024 04/01/2025 1 1 Encounter Details Date Type Department Care Team (Late st Contact Info) Description 03/02/2024 3:25 PM CDT Ancillary Procedure [facility] Imaging at [address] [address] Right hip pain Social History Tobacco Use Types Packs/Day Years Used Date Smoking Tobacco: Never Assessed Personal Safety Answer Date Recorded Getting School Help Needed Not on file 01/18 Comments Unknown Sex and Gender Information Value Date Recorded Sex Assigned at Not on file Legal Sex Female 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 Gender Identity Not on file Sexual Orientation Not on file documented as of this encounter Plan of Treatment Not on file documented as of this encounter Procedures Procedure Name Priority Date/Time Associated Diagnosis Comments XR HIP RIGHT W PELVIS 2 OR 3 VIEWS Schedule Routine, Read Routine (OP Routine) 03/02/2024 3:34 PM CDT Right hip pain documented in this encounter Results * XR Hip Right 2 or 3 Views W Pelvis (03/02/2024 3:34 PM CDT) Anatomical Region Laterality Modality Lower Extremities, Hip, Pelvis Right D igital Radiography Narrative 03/02/2024 3:35 PM CDT AP and lateral hip view today are negative for fracture, dislocation or bony lesions. The joint is well maintained with mild OA changes noted. Avni MACHADO IMCris XR PROCEDURES Final Res ult documented in this encounter Visit Diagnoses Diagnosis Right hip pain Pain in joint, pelvic region and thigh documented in this encounter Care Teams Vp Analytics Relationship Specialty Start Date End Date Adriana Baker PA [address] [place] [address] PCP - General Physician Hot Head Machine Operator 01/19/24 documented as of this encounter
--- OUTSIDE RECORDS SUMMARY | 2024-08-02 01:32 | XMS_ITS | Clinical Summary ---
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 Gender Identity Not on file Sexual Orientation [...] Mass Index - - Plan of Treatment Health Maintenance Due Date Last Done Comments Breast Cancer Screening-Mammogram 1976 Cervical Cancer Screening 1976 Colon Cancer Screening-Colonoscopy 1976 Depression Screening 1976 Hepatitis C Screening 1976 Hepatitis B Screening 1994 Regular Well Visit/Exam 18-64 1994 Covid-19 Vaccine ( season) 2024 11/08/2020 Influenza Vaccine (#1) 2024 2, 06/19/2020, 07/29/2019, Additional history exists DTaP/Tdap/Td Vaccine (2 - Td or Tdap) 05/06/2028 05/06/2018 Pneumococcal vaccine <65 Aged Out No longer eligible based on patient's age to complete this topic Insurance [facility] CHOICE PLUS Care Teams Hop Picker Relationship Specialty Start Date End Date Adriana Baker PA [address] [place] [address] PCP - General Physician Nutritional Yeast Supervisor 01/19/24
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
== END 2024-07-26 12:58 | disposition home or self-care (01) ==
PROVIDERS: PCP Physician Assistant; Visit Provider Internal Medicine Gastroenterology
PROC: 0DJ08ZZ Inspection of Upper Intestinal Tract, Via Natural or Artificial Opening Endoscopic (ICD-10-PCS; CPT 43235; principal; 2024-07-26 13:30)
DX: K21.9 Gastro-esophageal reflux disease without esophagitis (principal); E11.9 Type 2 diabetes mellitus without complications; M17.0 Bilateral primary osteoarthritis of knee; F41.9 Anxiety disorder, unspecified; F32.A Depression, unspecified; G47.30 Sleep apnea, unspecified; F12.90 Cannabis use, unspecified, uncomplicated; I83.90 Asymptomatic varicose veins of unspecified lower extremity; E66.01 Morbid (severe) obesity due to excess calories; Z68.41 Body mass index [BMI] 40.0-44.9, adult; Z79.1 Long term (current) use of non-steroidal anti-inflammatories (NSAID); Z99.89 Dependence on other enabling machines and devices; Z98.890 Other specified postprocedural states; Z90.49 Acquired absence of other specified parts of digestive tract; Z98.891 History of uterine scar from previous surgery; Z87.891 Personal history of nicotine dependence; Z82.49 Family history of ischemic heart disease and other diseases of the circulatory system
CPT/HCPCS: 43239; 88305; J2704; J7120